=== PATIENT | female | born 2000 | race African-American/Black ===

== ENCOUNTER 2024-04-05 13:42 | Emergency (ER) | payer SELFPAY ==
[2024-04-05 13:46] VITALS: BP 128/86
[2024-04-05 14:19] LABS: Hematocrit 28.4 % (37.0-47.0); Hemoglobin 9.5 g/dL (12.0-16.0); Mean Corp Hgb Conc. 33.5 g/dL (33.0-37.0); Mean Corpuscular Hgb 27.6 pg (27.0-31.0); Mean Corpuscular Volume 82.6 fL (81.0-99.0); Platelet Count 297 10^3/uL (130-400); Red Blood Cell Count 3.44 10^6/uL (4.20-5.40); Red Cell Dist. Width 13.7 % (11.5-14.5); White Blood Cell Count 4.4 10^3/uL (4.8-10.8)
[2024-04-05 14:40] LABS: HCG, Serum Qualitative Screen Negative
[2024-04-05 14:44] LABS: AST (SGOT) 20 U/L (14-36); Albumin 3.3 g/dl (3.5-5.0); Blood Urea Nitrogen 15 mg/dl (7-17); Carbon Dioxide 19 mmol/L (22-30); Glucose 75 mg/dl (70-99); Potassium 4.2 mmol/L (3.5-5.1); Total Bilirubin 0.3 mg/dl (0.2-1.3); Total Protein 6.4 g/dl (6.3-8.2); eGFR 54.89
[2024-04-05 14:48] LABS: % Basophils 0.5 % (0-2); % Eosinophils 1.1 % (0-6); % Immature Granulocytes 0.2 % (0-0.5); % Lymphocytes 26.6 % (20.5-51.1); % Monocytes 9.9 % (1.7-9.3); % Neutrophils 61.7 % (42.2-75.2); Absolute Eosinophils 0.1 10^3/uL (0-0.7); Absolute Lymphocytes 1.2 10^3/uL (1.2-3.4); Absolute Monocytes 0.4 10^3/uL (0.1-0.6); Absolute Neutrophils 2.7 10^3/uL (1.4-6.5); Nucleated Red Blood Cells % 0 %
[2024-04-05 15:08] LABS: ALT (SGPT) < 10 U/L (0-35); Alkaline Phosphatase 57 U/L (38-126); Chloride 115 mmol/L (98-107); Sodium 142 mmol/L (135-145)
--- NOTE | 2024-04-05 16:09 | CM ---
CM following re: discharge planning.
CM consulted to assist pt with medication affordability and medicaid application process.
[place] and will stay in boyfriend's parent house. Per pt's boyfriend's father medication with [employer] coupon will be affordable. As for applying for Medicaid, pt is aware to have [place] residency, applied for [place] ID and after apply
for Medical assistance at [facility] assistance office. Per boyfriend's father, pt has no HS diploma and she will work tto obtain GED and will apply for a job.
[facility]
D/C plan: home with boyfriend and his family
--- NOTE | 2024-04-05 16:11 | ED.GENMED ---
History of Present Illness
General
Chief Complaint: Generalized Pain
Source: patient and other (Boyfriend's father)
Exam Limitations: none
Time Seen by Provider: 04/05/24 14:54
History of Present Illness
History of Present Illness:
23-year-old female with a history of lupus/lupus nephritis. Presents for multiple reasons. One of the primary reasons appears to be she is run out of her medications as she moved from [place]. She ran out of her CellCept a week ago. She just ran
out of her Plaquenil. She feels like her joints ache more. Also ongoing diarrhea. No fever no chest pain or shortness of breath. No vomiting. She is trying to get set up for medical assistance.
Past History
Past History
ED Past Medical History: Other (Lupus/lupus nephritis/pleural effusions/ascites)
ED Past Surgical History: Other (Exploratory laparotomy)
Review of Systems
Review of Systems
All Other Systems: Not applicable
Constitutional: Denies fever
Respiratory: Reports no symptoms
Cardiac: Reports no symptoms
Phy Exam
Physical Exam
Physical Exam:
GENERAL: Alert and oriented in no apparent distress
EYE: Orbits normal.
NECK: Supple
CARDIAC: Regular rate and rhythm without any obvious murmurs.
LUNGS: Clear breath sounds,normal
ABDOMEN: Soft, without focal tenderness or distention
NEUROLOGICAL: Alert and oriented , grossly non-focal
SKIN: Warm and dry, no rash or lesion, no discoloration, skin intact.
MUSCULOSKELETAL: No edema,no deformity.Good color
PSYCH: Normal and appropriate interaction.
Course
Orders/Labs/Results
Orders:
Orders
04/05/24 13:52
Test Result ONCE
04/05/24 13:57
Complete Blood Count/With Diff Urgent
Comprehensive Metabolic Panel Urgent
Erythrocyte Sed Rate Urgent
Comment: ESR ADDED ON BY FLOOR 3:30PM 8-7-24
HCG, Serum Qualitative Screen Urgent
04/05/24 15:31
CXR2 [CR Chest - 2 Views ] Urgent
Comment:
Reason For Exam: evaluate for right effusuion
04/05/24 15:32
US Abdomen Complete/Upper Urgent
Comment:
Reason For Exam: evaluate for ascites and kidneys
04/05/24 15:33
Add On- LAB Urgent
Tests Added?: esr
Case Management Consult ONCE
Case Management Consult: Other
04/05/24 18:01
Hydroxychloroquine [Plaquenil] 200 mg PO NOW STA
04/05/24 18:02
Mycophenolate [Cellcept] 1,000 mg PO NOW STA
Prednisone [Deltasone] 50 mg PO NOW STA
Abnormal Lab Results
04/05/24
13:57
WBC 4.4 L 10^3/uL
(4.8-10.8)
RBC 3.44 L 10^6/uL
(4.20-5.40)
Hgb 9.5 L g/dL
(12.0-16.0)
Hct 28.4 L %
(37.0-47.0)
MPV 11.0 H fL
(7.4-10.4)
Monocytes % 9.9 H %
(1.7-9.3)
ESR 86 H mm/hour
(0-20)
Chloride 115 H mmol/L
(98-107)
Carbon Dioxide 19 L mmol/L
(22-30)
Creatinine 1.4 H mg/dL
(0.6-1.0)
Albumin 3.3 L g/dl
(3.5-5.0)
04/05/24 13:57
04/05/24 13:57
Vital Signs
Initial and Last Documented VS:
Initial Vital Signs
Temp Pulse Resp BP Pulse Ox
98.2 F 111 18 128/86 100
04/05/24 13:46 04/05/24 13:46 04/05/24 13:46 04/05/24 13:46 04/05/24 13:46
Last Documented Vital Signs
Temp Pulse Resp BP Pulse Ox
98.2 F 79 18 122/79 99
04/05/24 13:46 04/05/24 16:55 04/05/24 16:55 04/05/24 16:55 04/05/24 16:55
MDM/Problems Addressed
Differential Diagnosis Includes:
Patient clinically stable and nontoxic. She is in no distress. Patient describing a possible mild lupus flare although nothing to support a serious acute issue. Many of her issues appear to be related to logistics of medications medical follow-up
etc. I have contacted case management. We looked into the cost of the meds which are reasonable. I have also talked to the [facility] gift about follow-up through the clinic. We await chest x-ray to evaluate effusion.
Ultrasound to evaluate for ascites. Urine and possible stool culture. Clinically expect outpatient follow-up with restarting her meds through the [facility]
*Critical Care Note
Total Time (30-74mins, 75-104mins- exclusive of procedures): Not Applicable
Data Reviewed
Review of Other/Old Records Reveals: Labs and Records
Update Note
Update Note:
Of note patient was also given copy of CT report for follow-up
ED Attending Note
-
Portions of this chart may have been created with voice recognition software.� Occasional wrong word or��sound alike� substitutions may have occurred due to the inherent limitations of voice recognition software.
Discharge Plan
Departure
Patient Disposition: Home (Routine Discharge)
Date of Disposition: 04/05/24
Time of Disposition: 18:24
Patient with high blood pressure during this ER visit?: Yes
Discharge Problem:
Lupus (systemic lupus erythematosus), Small right pleural effusion, Mild renal insufficiency, Lupus flare
Instructions: Pleural effusion, Lupus and kidney disease, BLOOD PRESSURE
Prescriptions:
New
hydroxychloroquine [Plaquenil] 200 mg tablet
200 mg PO DAILY Qty: 7 0RF
hydroxychloroquine [Plaquenil] 200 mg tablet
200 mg PO DAILY Qty: 30 0RF
mycophenolate mofetil [CellCept] 500 mg tablet
1,000 mg PO BID Qty: 30 0RF
mycophenolate mofetil [CellCept] 500 mg tablet
1,000 mg PO BID Qty: 90 0RF
prednisone 10 mg tablet
10 mg PO DIRECTED Qty: 20 0RF
Rx Instructions:
4 tablets day 1. Then 1 less tablet every other day until gone
Referrals:
[facility] [Provider Group[facility] - Follow up in 2-3 days
NONE,* [Family Provider] -
Interventions
Interventions:
*Risk Screen - Suicide Last Done: 04/05/24 13:46
*General Assessment Last Done: 04/05/24 13:46
*Neglect/Abuse Screening Last Done: 04/05/24 13:46
*Nursing Disposition Last Done: 04/05/24 18:42
Discharge Date and Time
Discharge Date/Time: 04/05/24 18:42
Print Language: SLOVAK
[2024-04-05 16:17] LABS: Erythrocyte Sed Rate 86 mm/hour (0-20)
[2024-04-05 16:55] VITALS: BP 122/79
[2024-04-05] MEDS: CELLCEPT 1000 MG PO (18:36)
[2024-04-05] MEDS: PLAQUENIL 200 MG PO (18:36)
[2024-04-05] MEDS: DELTASONE 50 MG PO (18:36)
== END 2024-04-05 18:42 | disposition home or self-care (01) ==
LOC: EMR 13:42
PROVIDERS: Student in an Organized Health Care Education/Training Program; EMERGENCY PHYSICIAN Emergency Medicine
DX: M32.13 Lung involvement in systemic lupus erythematosus (principal); J90 Pleural effusion, not elsewhere classified; N28.9 Disorder of kidney and ureter, unspecified; R19.7 Diarrhea, unspecified; Z91.138 Patient's unintentional underdosing of medication regimen for other reason; Z88.8 Allergy status to other drugs, medicaments and biological substances
CPT/HCPCS: 99284; 71046; 76700; 80053; 84703; 85025; 85652

== ENCOUNTER → 2024-06-05 14:02 | Outpatient (REF) | payer OTHER, SELFPAY | LOC: UCDH 14:02 | PROVIDERS: ATTENDING PHYSICIAN Physician Assistant Medical | DX: S60.221A Contusion of right hand, initial encounter (principal) | CPT/HCPCS: 73130 ==

== ENCOUNTER 2024-06-13 10:02 | Inpatient (IN) | payer OTHER, SELFPAY ==
[2024-06-12] VITALS (21 sets, daily range): BP systolic 123–172; BP diastolic 71–122; BMI 26.4; BMI 26.2
--- NOTE | 2024-06-12 09:35 | ED.GENMED ---
History of Present Illness
General
Chief Complaint: Swelling
Source: patient
Exam Limitations: none
Time Seen by Provider: 06/12/24 09:33
Nursing documentation reviewed up to this point in time: agreed with
History of Present Illness
History of Present Illness:
Patient is a 23-year-old female past medical history of neuromyelitis optica, lupus' stage IV kidney disease' presents to the ED for evaluation.
Patient recently moved from [place] in January/February did have a mobility developer in [place]. She was seen here in the beginning of March to help with getting her medications. She has since seen [facility] and is being followed by them and
has been taking hydroxychloroquine. She however has not been able to get her CellCept .
She had an appointment with a mobility developer today however was not able to make it due to pain.
Pt presents here today for right sided arm/hand and right sided foot pain and swelling.
She woke up in sweat today.
She denies any fevers/chills.
Past History
Past History
ED Past Medical History: Other (Lupus/lupus nephritis/pleural effusions/ascites)
ED Past Surgical History: Other (Exploratory laparotomy)
Review of Systems
Review of Systems
Allergies reviewed?: Yes
All Other Systems: ROS reviewed and negative except as documented in HPI and ROS
Constitutional: Reports no symptoms; Denies fever, fatigue or chills
EENT: Reports no symptoms
Respiratory: Reports no symptoms
Cardiac: Reports no symptoms
ABD/GI: Reports no symptoms
Musculoskeletal: Reports joint swelling and other (Pain in joints and swelling)
Skin: Reports no symptoms
Neurological: Reports no symptoms
Psychiatric: Reports no symptoms
Phy Exam
General Physical Exam
General Presentation: no apparent distress
General age: appears stated age
General Skin: warm and dry
General Habitus: normal
General Mental: alert
General Hydration: appears well hydrated
Cardiovascular Exam
Cardiovascular Exam: tachycardia
Pulmonary Exam
Pulmonary Exam: lungs clear and no respiratory distress
Neurological Exam
Neurological Exam: alert and oriented x3
Musculoskeletal Exam
Musculoskeletal Exam: other (rue with right hand swelling and rle with right foot swelling strong pulses )
Skin Exam
Skin Exam: normal color and warm/dry
Psychiatric Exam
Psychiatric Exam: normal mood/affect
Course
Orders/Labs/Results
Orders:
Orders
06/12/24 09:50
IV Insert/Care/Rem.- Treatment PRN
Test Result ONCE
06/12/24 10:45
Complete Blood Count/With Diff Urgent
Comprehensive Metabolic Panel Urgent
HCG, Serum Qualitative Screen Urgent
Urinalysis Reflex To Culture Urgent
Date Specimen was Collected: 06/12/24
Time Specimen was Collected: 09:55
Urine Microscopic Reflex Cult Urgent
Urine Culture Urgent
DANAY Source: U
Specimen Description:
Date Specimen was Collected: 06/12/24
Time Specimen was Collected: 09:55
06/12/24 11:50
Electrocardiogram (*1) Stat
Reason for Study: Other
Other Reason for Exam: chest pain
EKG- Treatment ONCE
06/12/24 12:04
Morphine Sulfate 4 mg IV NOW STA
06/12/24 12:55
0.9% Sodium Chloride 1000 ml [Nss] 1,000 ml IV BOLUS
06/12/24 Dinner
Regular
At Your Request: Full Participation
06/12/24 15:11
CMP [Comprehensive Metabolic Panel] Urgent
Ferritin Routine
Comment: ADD ON
Iron Urgent
Comment: ADD ON
Total Iron Binding Urgent
Comment: ADD ON
06/12/24 15:15
Metoprolol [Lopressor] 5 mg IV NOW STA
06/12/24 15:16
Morphine Sulfate 4 mg IV NOW STA
06/12/24 15:27
0.9% Sodium Chloride 1000 ml [Nss] 1,000 ml IV BOLUS
06/12/24 15:28
NIFEdipine EXTENDED RELEASE [Procardia Xl (Extended Release)] 30 mg PO NOW STA
06/12/24 15:30
0.9% Sodium Chloride 1000 ml [Nss] 1,000 ml IV BOLUS
06/12/24 15:44
Dexamethasone Sod Phosphate [Decadron] 10 mg IV NOW STA
06/12/24 15:52
Admit/Transfer Patient As Directed
Co-Sign Provider:
Level of Care: Observation services
Assign to:: Medical/Surgical
Physician / Group: Andrei
Diagnosis: elevated blood pressure
Code Status As Directed
Resuscitation Status: Full Code
PRN Pain Medication Management As Directed
May give lesser potent ordered pain med per pt: Yes
preference::
Protocol:: Medication orders for pain may be administered in a
manner that supports deferring to patient preference
when the pt is:
- Requesting an ordered lesser potent pain medication.
Least to most potent pain medications are defined
as: acetaminophen < NSAID < tramadol < opioids
(morphine, oxycodone, hydromorphone).
- Requesting a lesser dose of the same medication IF
ORDERED.
- Requesting a less intrusive route of administration
if both routes are prescribed by the provider (PO <
IV).
06/12/24 16:06
Ondansetron Injectable [Zofran] 4 mg IV Q6HPRN PRN
06/12/24 16:51
NIFEdipine EXTENDED RELEASE [Procardia Xl (Extended Release)] 30 mg .ROUTE .STK-MED ONE
06/12/24 17:00
Flush (0.9% Sodium Chloride) [Flush (Nss)] See Dose Instructions IV PER PROTOCOL
06/12/24 19:13
Acetaminophen [Tylenol] 650 mg PO Q4HPRN PRN
Bisacodyl [Dulcolax] 10 mg RECTAL [id number] PRN
Docusate W/Senna [Senokot-S] 1 tablet PO BIDPRN PRN
Heparin 5,000 units SC Q8
HydrALAZINE [Apresoline] 10 mg IV Q4HPRN PRN
Hydroxychloroquine [Plaquenil] 200 mg PO DAILY
Polyethylene Glycol Powder [Miralax] 17 grams PO DAILYPRN PRN
Tramadol HCl [Ultram] 50 mg PO Q6HPRN PRN
06/12/24 19:13
Activity As Directed
Activity Level: With Assistance
Vital Signs As Directed
Frequency: Per unit guidelines
DX Deep Vein Thrombosis Video Routine
06/12/24 20:00
mycophenolate mofetil 500 mg PO BID
06/12/24 21:49
Melatonin 5 mg PO NOW STA
06/12/24 22:00
Melatonin 5 mg PO HS
06/13/24 04:11
Basic Metabolic Panel IN AM
Complete Blood Count/With Diff IN AM
06/13/24 04:56
Morphine Sulfate 2 mg IV NOW STA
06/13/24 07:57
Transfer Patient As Directed
Transfer to: Telemetry
Reason for Telemetry: Arrhythmia
Date to Stop Telemetry: 06/16/24
Time to Stop Telemetry: 11:00
06/13/24 08:00
Albuterol Nebs [Ventolin Nebules] 2.5 mg INH R NOW
Hydroxychloroquine [Plaquenil] 200 mg PO DAILY
Mycophenolate [Cellcept] 1,000 mg PO BID
NIFEdipine EXTENDED RELEASE [Procardia Xl (Extended Release)] 30 mg PO DAILY
06/13/24 08:02
Dextrose 50%-Water [Dextrose 50% Syringe] 25 grams IV NOW STA
Insulin Human Regular [Novolin R] 10 units Syringe [Syringe Non-Pump] 0 ml IV ONCE
06/13/24 08:07
Sodium Zirconium Cyclosilicate [Lokelma] 10 gram PO TID@0600,1400,1800
06/13/24 08:15
Sterile Water For Inj [Sterile Water For Injection 1000 ml] 1,000 ml Sodium Bicarbonate 150 meq IV 150 mls/hr
06/13/24 08:27
Ondansetron Injectable [Zofran] 4 mg IV Q6HPRN PRN
06/13/24 08:30
Calcium Gluconate 1 gram/100mL [Calcium Gluconate] 1 gram in 100 ml IV ONCE
06/13/24 09:52
Change in Level of Care [Level of Care Change] As Directed
Level of Care: Inpatient admission
Reason for Hospitalization: metabolic acidosis
Expected length of stay greater than two midnights?: Yes
ELOS- Estimated Length of Stay in days: 3
I certify the patient meets the requirements for IP care: Yes
06/13/24 10:00
MethylPREDNISolone PF [Solu-Medrol Pf] 40 mg IV Q12H
06/13/24 14:00
BMP [Basic Metabolic Panel] Routine
Ferric Gluconate [Ferrlecit] 125 mg 0.9% Sodium Chloride 100 ml [Nss] 100 ml IV DAILY@1400
06/14/24 06:00
Basic Metabolic Panel IN AM
Complete Blood Count/With Diff IN AM
06/15/24 06:00
Basic Metabolic Panel IN AM
Complete Blood Count/With Diff IN AM
06/16/24 11:00
DC Protocol for Telemetry ONCE
Abnormal Lab Results
06/12/24 06/12/24 06/13/24
10:45 15:11 04:11
WBC 2.6 L 10^3/uL 1.9 L* 10^3/uL
(4.8-10.8) (4.8-10.8)
RBC 3.58 L 10^6/uL 3.22 L 10^6/uL
(4.20-5.40) (4.20-5.40)
Hgb 8.6 L g/dL 8.1 L g/dL
(12.0-16.0) (12.0-16.0)
Hct 26.9 L % 24.3 L %
(37.0-47.0) (37.0-47.0)
MCV 75.1 L fL 75.5 L fL
(81.0-99.0) (81.0-99.0)
MCH 24.0 L pg 25.2 L pg
(27.0-31.0) (27.0-31.0)
MCHC 32.0 L g/dL
(33.0-37.0)
MPV 13.4 H fL
(7.4-10.4)
Absolute Neuts (auto) 1.2 L 10^3/uL 1.0 L 10^3/uL
(1.4-6.5) (1.4-6.5)
Absolute Lymphs (auto) 0.8 L 10^3/uL
(1.2-3.4)
Potassium 5.6 H mmol/L 5.7 H mmol/L 6.5 H* mmol/L
(3.5-5.1) (3.5-5.1) (3.5-5.1)
Chloride 117 H mmol/L 117 H mmol/L 117 H mmol/L
(98-107) (98-107) (98-107)
Carbon Dioxide 14 L* mmol/L 14 L* mmol/L 12 L* mmol/L
(22-30) (22-30) (22-30)
BUN 29 H mg/dl 27 H mg/dl 26 H mg/dl
(7-17) (7-17) (7-17)
Creatinine 1.6 H mg/dL 1.4 H mg/dL 1.3 H mg/dL
(0.6-1.0) (0.6-1.0) (0.6-1.0)
Glucose 124 H mg/dl
(70-99)
Calcium 8.3 L mg/dl 8.3 L mg/dl
(8.4-10.2) (8.4-10.2)
Iron 29 L ug/dl
(37-170)
TIBC 193 L ug/dl
(265-497)
% Saturation 15 L %
(20-50)
Total Bilirubin 0.1 L mg/dl
(0.2-1.3)
AST 65 H U/L 60 H U/L
(14-36) (14-36)
Total Protein 6.1 L g/dl
(6.3-8.2)
Albumin 2.9 L g/dl 2.7 L g/dl
(3.5-5.0) (3.5-5.0)
Ur Occult Blood Reflex 4+ A
(Negative)
Urine Nitrite (Reflex) Positive A
(Negative)
Leukocyte Esterase Rfl 1+ A
(Negative)
Urine RBC 21-25 A /HPF
(0-2)
Urine Bacteria (Reflex) Many A
(Negative)
Urine Albumin (Reflex) 2+ A
(Neg - Trace)
POC Glucose
06/13/24
09:48
WBC
RBC
Hgb
Hct
MCV
MCH
MCHC
MPV
Absolute Neuts (auto)
Absolute Lymphs (auto)
Potassium
Chloride
Carbon Dioxide
BUN
Creatinine
Glucose
Calcium
Iron
TIBC
% Saturation
Total Bilirubin
AST
Total Protein
Albumin
Ur Occult Blood Reflex
Urine Nitrite (Reflex)
Leukocyte Esterase Rfl
Urine RBC
Urine Bacteria (Reflex)
Urine Albumin (Reflex)
POC Glucose 112 H mg/dl
(70-99)
06/13/24 04:11
06/13/24 04:11
Vital Signs
Initial and Last Documented VS:
Initial Vital Signs
Temp Pulse Resp BP Pulse Ox
98.5 F 112 18 163/118 100
06/12/24 08:37 06/12/24 08:37 06/12/24 08:37 06/12/24 08:37 06/12/24 08:37
Last Documented Vital Signs
Temp Pulse Resp BP Pulse Ox
98.3 F 103 20 141/98 100
06/13/24 11:07 06/13/24 11:07 06/13/24 11:07 06/13/24 11:07 06/13/24 11:07
MDM/Problems Addressed
Differential Diagnosis Includes:
Not limited to lupus flare, pain
MDM/Problems Addressed:
Patient is a 23-year-old female with lupus history of lupus who as documented recently moved here to [place] from [place] over the past several months. Since then she has been seen by the family practice clinic only taking her Plaquenil she
has not been taking her CellCept. She was supposed to be scheduled for rheumatology today however because of increased pain she did not feel she could make and presented to the ER. She presents awake alert she is hypertensive she complains of
joint pain throughout and worse with swelling to the right hand and right foot. She denies any fevers or chest pain or breath she is afebrile however white count is low at 2.6 which is decreased from 4.4 when she was seen here 04/05; hemoglobin is
also decreased at 8.6 from 9.5. Patient's creatinine is elevated to 1.6/BUN of 29 with a potassium of 5.6 with no EKG changes. Patient's bicarb is low at 14: gap 11 .
Patient has blood in her urine however does have menses currently.
Discussed case with ED physician and admitting hospitalist and hospitalist is reequesting hydration and recheck of labs and does not feel that pt needs to be admitted.
Patient however is hypertensive , c/o of pain is requiring pain medication here. She is persistently hypertensive with heart rate of 100. Patient was treated with IV Lopressor. Patient was hydrated awaiting on recheck chemistries at this time.
Care of pt at this time transferred to DR Shaw. ([id number]) . Pt continues to remain on site monitor
Chronic conditions affecting care:
lupus (non complaint has not been taking cellcept )
*EKG
Interpreted by ED Provider?: Yes
Comparison EKG: no comparison EKG present
Heart Rate: 91
Rate: normal
Rhythm: sinus
Ischemia: no ischemia
*Critical Care Note
Total Time (30-74mins, 75-104mins- exclusive of procedures): Not Applicable
ED Attending Note
-
Portions of this chart may have been created with voice recognition software.� Occasional wrong word or��sound alike� substitutions may have occurred due to the inherent limitations of voice recognition software.
Discharge Plan
Departure
Patient Disposition: Admit
Admit to: Telemetry
Admit to doctor: Andrei
Presentation/result/management discussed w/ accepting MD/DO: Hospitalist
Patient with high blood pressure during this ER visit?: Yes
Condition: Fair
Discharge Problem:
lupus flare, acute hypertension, Acute hyperkalemia
Interventions
Interventions:
*Risk Screen - Suicide Last Done: 06/12/24 08:37
*General Assessment Last Done: 06/12/24 08:37
*Neglect/Abuse Screening Last Done: 06/12/24 08:37
ED- Fall Risk Assessment Last Done: 06/12/24 10:42
*ED COVID-19 Vaccine History Last Done: 06/12/24 23:02
*Nursing Disposition Last Done: 06/12/24 18:39
ED- Cardiac Assessment Last Done: 06/12/24 10:42
ED- Pulmonary Assessment Last Done: 06/12/24 10:42
ED-Skin Assessment Last Done: 06/12/24 10:42
Discharge Date and Time
Discharge Date/Time: 06/12/24 18:40
--- NOTE | 2024-06-12 10:55 | EDRN ---
the pt is resting in stretcher in the lowest position, side rails up x1, HOB elevated, the pt is sitting on the side of the stretcher, the pt states that it is too painful to lay down, the pt was able to ambulate to the bathroom and provide a urine
sample with no issues, PIV placed, labs drawn and sent, urine sent, this RN notified Prachi Carrero [employer] DEVELOPMENT CONSULTANT that the pt is in generalized pain, the pt has generalized swelling, more prominent on the right upper extremity and right lower extremity, no
s/s of distress currently, will continue to monitor the pt closely
[2024-06-12 11:13] LABS: Urine Albumin 2+ (Neg - Trace); Urine Bilirubin Negative (Negative); Urine Character Slightly Cloudy (Clear); Urine Color Yellow; Urine Glucose Negative (Negative); Urine Ketone Negative (Negative); Urine Leukocyte 1+ (Negative); Urine Nitrite Positive (Negative); Urine Occult Blood 4+ (Negative); Urine Urobilinogen Negative (Neg - 1+)
[2024-06-12 11:21] LABS: HCG, Serum Qualitative Screen Negative
[2024-06-12 11:24] LABS: Hematocrit 26.9 % (37.0-47.0); Hemoglobin 8.6 g/dL (12.0-16.0); Mean Corpuscular Volume 75.1 fL (81.0-99.0); Mean Platelet Volume 13.4 fL (7.4-10.4); Platelet Count 272 10^3/uL (130-400); Red Blood Cell Count 3.58 10^6/uL (4.20-5.40); Red Cell Dist. Width 14.2 % (11.5-14.5); White Blood Cell Count 2.6 10^3/uL (4.8-10.8)
[2024-06-12 11:36] LABS: ALT (SGPT) 15 U/L (0-35); AST (SGOT) 65 U/L (14-36); Albumin 2.9 g/dl (3.5-5.0); Alkaline Phosphatase 51 U/L (38-126); Blood Urea Nitrogen 29 mg/dl (7-17); Calcium 8.7 mg/dl (8.4-10.2); Carbon Dioxide 14 mmol/L (22-30); Chloride 117 mmol/L (98-107); Estimated Creatinine Clearance 49 ml/min; Glucose 89 mg/dl (70-99); Potassium 5.6 mmol/L (3.5-5.1); Sodium 142 mmol/L (135-145); Total Bilirubin 0.2 mg/dl (0.2-1.3); Total Protein 6.3 g/dl (6.3-8.2); eGFR 46.76
[2024-06-12 11:44] LABS: Urine Amorphous Seen; Urine Squamous Cell >30 /LPF (Few)
[2024-06-12 11:50] LABS: Urine Red Blood Cell 21-25 /HPF (0-2)
[2024-06-12 11:51] LABS: Urine Bacteria Many (Negative)
[2024-06-12] MEDS: MORPHINE SULFATE 4 MG IV ×2 (12:20→15:28)
--- NOTE | 2024-06-12 12:30 | EDRN ---
pain medication administered and EKG performed, per the provider Prachi Carrero NP the pt is to be placed on cardiac monitor technician for elevated K, this RN notified the charge nurse, this RN will find portable monitor
--- NOTE | 2024-06-12 12:46 | EDRN ---
this RN found a portable monitor and placed the pt on rn cardiac rehab, Sp02 monitor, and blood pressure cuff, the pt is resting in stretcher in the lowest position, side rails up x1, HOB elevated, no s/s of distress, per Prachi Carrero NP the pt
will be admitted, the pt is in NSR in the 70-80's, VS WNL, will continue to monitor the pt closely
[2024-06-12 13:40] LABS: % Basophils 0.4 % (0-2); % Eosinophils 2.3 % (0-6); % Immature Granulocytes 0.4 % (0-0.5); % Lymphocytes 46.2 % (20.5-51.1); % Monocytes 4.2 % (1.7-9.3); % Neutrophils 46.5 % (42.2-75.2); Absolute Eosinophils 0.1 10^3/uL (0-0.7); Absolute Lymphocytes 1.2 10^3/uL (1.2-3.4); Absolute Monocytes 0.1 10^3/uL (0.1-0.6); Absolute Neutrophils 1.2 10^3/uL (1.4-6.5); Nucleated Red Blood Cells % 0 %
--- NOTE | 2024-06-12 13:48 | EDRN ---
provider notified of the pts elevated blood pressure
[2024-06-12] MEDS: NSS 1000 IV ×2 (13:50→15:27)
--- NOTE | 2024-06-12 14:19 | EDRN ---
the pt is resting in stretcher in the lowest position, side rails up x1, HOB elevated, no s/s of distress, the pt denies needing anything at this time, NSR in the 70-90's, Sp02 98%, no c/o chest pain, no c/o SOB, will continue to monitor the pt
closely
--- NOTE | 2024-06-12 14:31 | EDRN ---
this RN notified Prachi Carrero NP of the pts elevated blood pressure again, no new orders received, no c/o headache, no c/o chest pain, no c/o SOB, will continue to monitor the pt closely
--- NOTE | 2024-06-12 14:46 | EDRN ---
the pt asked this RN for water, this RN notified Prachi Carrero NP and per the provider the pt was is allowed to have water, this RN provided the pt with ice water and assisted the pt with repositioning in bed for comfort, this RN notified Prachi
Magan SWAN again regarding the pts elevated blood pressures, no new orders were received, will continue to monitor the pt closely
--- NOTE | 2024-06-12 15:31 | HPS.HSE ---
Family Physician
-
Family Physician: PHYSICIAN PRIVATE
Chief Complaint
-
RUE and RLE pain
History of Present Illness
23 y/o F with PMHx SLE with lupus nephritis who presents with CC RUE and RLE pain. The patient recently moved from [place]. She was supposed came to the ER because her RUE/RLE pain was to great. Her pain started approximately 2 days ago. She is
maintained on Plaquenil and CellCept since the age of 19 when she was diagnosed with lupus nephritis. She ran out of her CellCept 1 to 2 weeks ago. She states she is still with her Plaquenil. Denies any other acute complaints. Denies fevers,
chest pain, shortness of breath, nausea, vomiting, diarrhea. Patient was found to have elevated blood pressures. She was also found to have a nonanion gap metabolic acidosis and hyperkalemia.
Medical History
Past Medical History
Past Medical History: Reports Other (SLE with lupus nephritis)
Past Surgical History: Reports Other (N/A)
Social History
Tobacco: Non-smoker
Alcohol: None
Drug: None
Family History
Family History: Not pertinent
Allergies / Home Medications
Allergies reflects when Allergies were last updated in [facility].
Home Medications with original date entered in [facility]
Allergy/Medication List:
Allergies
Allergy/AdvReac Type Severity Reaction Status Date / Time
KATERINA Inhibitors Allergy Severe Swelling Verified 06/12/24 08:38
Home Medications
hydroxychloroquine 200 mg tablet (Plaquenil) 200 mg PO DAILY #7 tabs 04/05/24
mycophenolate mofetil 500 mg tablet (CellCept) 500 mg PO BID 06/12/24
Review of Systems
-
History Source: Patient
A 12 point ROS was completed and negative except as noted: Yes
Physical Exam
Vital Signs
Vital Signs
Temp Pulse Resp BP Pulse Ox
98.5 F 92 22 172/122 100
06/12/24 10:42 06/12/24 14:45 06/12/24 14:45 06/12/24 15:13 06/12/24 15:15
Physical Exam
General: Other (.)
Laboratory Results
-
06/12/24 10:45
Laboratory Results
Total Bilirubin 0.2 mg/dl (0.2-1.3) 06/12/24 10:45
AST 65 U/L (14-36) H 06/12/24 10:45
ALT 15 U/L (0-35) 06/12/24 10:45
Alkaline Phosphatase 51 U/L (38-126) 06/12/24 10:45
Impression/Plan
-
Gen: NAD, AAOx3.
Eyes: EOMI, PERRLA, no scleral icterus.
Neck: supple.
CV: RRR, +S1/S2, no m/r/g.
Resp: CTAB, no rales, wheezes, or rhonchi.
Abd: +BS, soft, NT, ND
Skin: No rashes. Visible soft tissue edema right greatest to a lesser degree.
Neuro: CN 2-12 intact, non-focal.
Psych: Normal mood and affect.
R hand Xray: No acute fracture or dislocation.
Chronic SLE with lupus nephritis:
-Cr 04/05/24 was 1.4, currently 1.6, no EMILY at this time
-Hyperkalemia and AGMA with HCO3- 14, received 1L NS in the ER, repeat BMP pending
-will order another 1L NS wide open at this time
-pt has been noncompliant with Cellcept, will resume
-cont Plaquenil
-will curbside rheum
-reinforced the need for outpt rheum follow up
-will give a one time dose of 10mg IV decadron
-pain control with Tylenol, Ultram PRN
Elevated BPs:
-Patient states she has been on antihypertensives in the past but never standing doses. She attributes her current BPs to stress. I explained that DBP of 122 is too high to be due to stress alone.
-start Procardia XL 30mg daily, first dose now
-titrate antihypertensives based on BP trend
Microcytic anemia:
-check Fe studies
Leukopenia with borderline neutropenia (ANC 1200)
FULL/Heparin
[2024-06-12] MEDS: DECADRON 10 MG IV (15:59)
[2024-06-12 16:00] LABS: ALT (SGPT) 15 U/L (0-35); AST (SGOT) 60 U/L (14-36); Albumin 2.7 g/dl (3.5-5.0); Alkaline Phosphatase 49 U/L (38-126); Blood Urea Nitrogen 27 mg/dl (7-17); Calcium 8.3 mg/dl (8.4-10.2); Carbon Dioxide 14 mmol/L (22-30); Chloride 117 mmol/L (98-107); Estimated Creatinine Clearance 56 ml/min; Glucose 89 mg/dl (70-99); Potassium 5.7 mmol/L (3.5-5.1); Sodium 140 mmol/L (135-145); Total Bilirubin 0.1 mg/dl (0.2-1.3); Total Protein 6.1 g/dl (6.3-8.2); eGFR 54.89
[2024-06-12] MEDS: PROCARDIA XL (EXTENDED RELEASE) PO (16:00)
[2024-06-12] MEDS: ZOFRAN 4 MG IV (16:11)
[2024-06-12] MEDS: PROCARDIA XL (EXTENDED RELEASE) 30 MG PO (16:54)
[2024-06-12 20:25] LABS: Iron 29 ug/dl (37-170)
[2024-06-12 20:33] LABS: Percent Saturation 15 % (20-50); Total Iron Binding Capacity 193 ug/dl (265-497)
[2024-06-12 21:09] LABS: Ferritin 88.1 ng/ml (6.24-137)
[2024-06-12] MEDS: ULTRAM 50 MG PO (21:18)
[2024-06-12] MEDS: CELLCEPT 500 MG PO (21:39)
[2024-06-12] MEDS: MELATONIN 5 MG PO (23:18)
[2024-06-12] MEDS: MELATONIN PO (23:22)
[2024-06-13] MEDS: ULTRAM 50 MG PO ×2 (04:36→12:10)
[2024-06-13] MEDS: MORPHINE SULFATE 2 MG IV (05:09)
[2024-06-13 06:42] LABS: Hematocrit 24.3 % (37.0-47.0); Hemoglobin 8.1 g/dL (12.0-16.0); Mean Corp Hgb Conc. 33.3 g/dL (33.0-37.0); Mean Corpuscular Hgb 25.2 pg (27.0-31.0); Mean Corpuscular Volume 75.5 fL (81.0-99.0); Platelet Count 240 10^3/uL (130-400); Red Blood Cell Count 3.22 10^6/uL (4.20-5.40); Red Cell Dist. Width 13.9 % (11.5-14.5); White Blood Cell Count 1.9 10^3/uL (4.8-10.8)
[2024-06-13 06:48] LABS: Blood Urea Nitrogen 26 mg/dl (7-17); Calcium 8.3 mg/dl (8.4-10.2); Carbon Dioxide 12 mmol/L (22-30); Chloride 117 mmol/L (98-107); Estimated Creatinine Clearance 57 ml/min; Glucose 124 mg/dl (70-99); Potassium 6.5 mmol/L (3.5-5.1); Sodium 140 mmol/L (135-145)
[2024-06-13 07:13] VITALS: BP 155/105
[2024-06-13] MEDS: VENTOLIN NEBULES 2.5 MG INH (08:03)
[2024-06-13] MEDS: PROCARDIA XL (EXTENDED RELEASE) 30 MG PO (08:14)
[2024-06-13] MEDS: CELLCEPT 1000 MG PO ×2 (08:14→21:13)
[2024-06-13] MEDS: PLAQUENIL 200 MG PO (08:14)
--- NOTE | 2024-06-13 08:19 | W.PN.HOSP.TC ---
Today's Communication/Plan
-
Manage hyperkalemia
Monitor potassium levels
Workup for causes of hyperkalemia and metabolic acidosis
Monitor blood pressure
Assessment / Plan
Assessment / Plan
IMPRESSION
A 23-year-old female, known case of lupus nephritis for 5 years taking CellCept and hydroxychloroquine as a maintenance regimen, presented with high blood pressures, joint swelling , pain, and generalized weakness. Admitted for lupus flare-up.
Current labs show hyperkalemia and metabolic acidosis.
ASSESSMENT
# Hyperkalemia
# Metabolic acidosis
# High blood pressure
#SLE
PLAN
# Hyperkalemia
Patient had a potassium level of 6.5 on June 13, 2024
Started on ventolin nebulization, calcium gluconate infusion, dextrose water 50%, 10 units of insulin, Lokelma
Repeat potassium levels at 1400
Monitor potassium levels
Patient has nausea and decreased appetite, denies any fever, urinary symptoms, diarrhea, drug use, trauma snell or accidents
denies any organ transplant origination
Serum creatinine 1.3
Patient is allergic to KATERINA inhibitors, avoid KATERINA inhibitors and ARB and any NSAIDs
# Metabolic acidosis
Patient had a bicarb level of 12
Switch IV fluids to 150 mEq sodium bicarb at 150 mL per
# High blood pressure
Patient has taken blood pressure medications in the past but is not on any scheduled BP medication
Attributes to the stress of moving from [place]
Diastolic blood pressure too high to be simple stress as a cause of high blood pressure
Patient advised Procardia
Monitor blood pressure
#SLE
Diagnosed with SLE about 5 years ago
Takes CellCept and hydroxychloroquine
Ran out of medication and presented to emergency with high blood pressures
Manage blood pressure
Continue home dose of CellCept and hydroxychloroquine
Microcytic anemia-IV ferric gluconate
Leukopenia
Full code
DVT prophylaxis low molecular weight heparin
Anticipated Discharge: 24 - 48 hours
Subjective/Interval History
-
Date of Service: June 13, 2024
Complains of joint pains, swelling of hands and feet and weakness
Objective Data
-
Labs:
Laboratory Results
06/13/24 06/13/24
04:11 14:00
WBC 1.9 L*
Hgb 8.1 L
Hct 24.3 L
Plt Count 240
Sodium 140 Pending
Potassium 6.5 H* Pending
Chloride 117 H Pending
Carbon Dioxide 12 L* Pending
BUN 26 H Pending
Creatinine 1.3 H Pending
Glucose 124 H Pending
Calcium 8.3 L Pending
Vital Signs:
Vital Signs
Temp Pulse Resp BP Pulse Ox
98.6 F 98 16 123/78 100
06/12/24 23:13 06/13/24 08:09 06/13/24 08:09 06/12/24 23:13 06/13/24 08:09
I&O
06/12/24 06/13/24 06/14/24
06:59 06:59 06:59
Intake Total 240 / 240
Balance 240 / 240
Review of Systems
-
All other systems: Reviewed and negative
Physical Exam
-
General: Well Developed, No Apparent Distress, Comfortable and Conversant
HEENT: Normocephalic and Atraumatic
Respiratory: Clear to Auscultation
Cardiac: Regular Rhythm and S1/S2
GI: Soft, Nontender, Nondistended and Normal Bowel Sounds
Genito-urinary: No Costovertebral Tender
Musculoskeletal: No Clubbing and No Cyanosis
Skin: Warm, Dry and Other
Neuro: Awake, Alert, Oriented and No Motor Deficits
Hematologic / Lymphatic: No Lymphadenopathy
Psych: Calm
[2024-06-13] MEDS: CALCIUM GLUCONATE 100 IV (08:32)
[2024-06-13] MEDS: DEXTROSE 50% SYRINGE 25 GRAMS IV (08:34)
[2024-06-13] MEDS: NOVOLIN R 0.1 UNITS IV (08:36)
[2024-06-13] MEDS: LOKELMA 10 GRAM PO ×3 (08:42→17:01)
[2024-06-13 09:22] LABS: % Immature Granulocytes 0.5 % (0-0.5); % Lymphocytes 44.4 % (20.5-51.1); % Monocytes 3.2 % (1.7-9.3); % Neutrophils 51.9 % (42.2-75.2); Absolute Lymphocytes 0.8 10^3/uL (1.2-3.4); Absolute Monocytes 0.1 10^3/uL (0.1-0.6); Nucleated Red Blood Cells % 0 %
[2024-06-13] MEDS: SODIUM BICARBONATE 1150 MEQ IV ×2 (09:29→18:15)
[2024-06-13] MEDS: ZOFRAN 4 MG IV ×2 (09:41→17:01)
[2024-06-13 09:49] LABS: Glucose - Point of Care 112 mg/dl (70-99)
--- NOTE | 2024-06-13 09:54 | W.PN.UPDATE ---
Update Note
Progress Note Update
No new complaints today.
Pt seen and examined with nurse Carolina Ruth present at bedside:
Gen: NAD, AAOx3.
Eyes: EOMI, PERRLA, no scleral icterus.
Neck: supple.
CV: Remains RRR, +S1/S2, no m/r/g.
Resp: Remains CTAB, no rales, wheezes, or rhonchi.
Abd: Remains +BS, soft, NT, ND
Skin: No rashes. Visible soft tissue edema right greatest to a lesser degree.
Neuro: CN 2-12 intact, non-focal.
Psych: Normal mood and affect.
R hand Xray: No acute fracture or dislocation.
Chronic SLE with lupus nephritis:
-Cr 04/05/24 was 1.4, 1.6 on admission, now 1.3 after IVFs (this qualifies for EMILY, POA)
-AGMA and hyperkalemia worsening. Change IVFs to NaHCO3 150meq/L @ 150cc/hr. Give calcium gluconate/D50W/insulin/Lokelma. Recheck BMP at [address]. Place on tele.
-pt had been noncompliant with Cellcept, now restarted
-cont Plaquenil
-will curbside rheum
-reinforced the need for outpt rheum follow up
-s/p 10mg IV decadron on 06/12/24 with improvement in joint edema and pain. Start Solu-Medrol 40mg IV Q12H.
-pain control with Tylenol, Ultram PRN, IV morphine PRN
Elevated BPs:
-Patient states she has been on antihypertensives in the past but never standing doses. She attributes her current BPs to stress. I explained that DBP of 122 is too high to be due to stress alone.
-cont Procardia XL 30mg daily for today
-titrate antihypertensives based on BP trend over the next 24 hours
-note allergy to ACEi, avoid ACEi/ARBs
Microcytic anemia:
-Fe studies c/w Fe def anemia
-IV Ferrlecit
Leukopenia with neutropenia (ANC 1000)
FULL/Heparin
Total time spent on today's encounter was 50 minutes which included time spent in counseling the patient/family regarding diagnosis and treatment plan as listed above, goals of care, and symptom management. Case was discussed with nursing staff,
specialists, and care coordinators/case management. All labs and imaging personally reviewed by me. Remainder the time spent in detailed review of previous records, lab data, imaging, and other medical provider documentation.
[2024-06-13 10:47] LABS: Glucose - Point of Care 84 mg/dl (70-99)
[2024-06-13] MEDS: SOLU-MEDROL PF 40 MG IV ×2 (11:03→21:12)
[2024-06-13 11:07] VITALS: BP 141/98
[2024-06-13] MEDS: TYLENOL 650 MG PO (12:09)
[2024-06-13 12:45] LABS: Glucose - Point of Care 83 mg/dl (70-99)
[2024-06-13] MEDS: MORPHINE SULFATE 1 MG IV ×2 (13:10→21:12)
[2024-06-13] MEDS: FERRLECIT 110 MG IV (14:16)
[2024-06-13 14:49] LABS: Blood Urea Nitrogen 24 mg/dl (7-17); Calcium 8.6 mg/dl (8.4-10.2); Carbon Dioxide 17 mmol/L (22-30); Chloride 112 mmol/L (98-107); Estimated Creatinine Clearance 67 ml/min; Glucose 100 mg/dl (70-99); Potassium 5.6 mmol/L (3.5-5.1); Sodium 139 mmol/L (135-145); eGFR > 60.00
[2024-06-13 14:49] LABS: Glucose - Point of Care 111 mg/dl (70-99)
[2024-06-13 15:22] VITALS: BP 150/108
--- NOTE | 2024-06-13 16:52 | CM ---
Alert awake oriented patient who lives with her SO Panda and his parents in a 3 story home with 3 steps to enter and 12 steps to bed/bathroom. She is independent in activates of daily living.She does not drive .No adaptive devices.
No VN in past . No SNF hx
Pharmacy [facility] [address] Dr Thornton
PLAN Home with no needs
[2024-06-13 19:44] VITALS: BP 160/103
[2024-06-13] MEDS: MELATONIN 5 MG PO (21:13)
[2024-06-13 23:00] VITALS: BP 155/112
[2024-06-13 23:24] LABS: Protein/creatinine Ratio 11.5; Urine Protein 554 mg/dl
[2024-06-14] VITALS (7 sets, daily range): BP systolic 124–157; BP diastolic 83–110
[2024-06-14] MEDS: SODIUM BICARBONATE 1150 MEQ IV ×2 (00:28→08:21)
--- NOTE | 2024-06-14 04:04 | DOWNTIME ---
There was a [employer] Downtime on 06/14/2024 from 0100 to 06/14/2024 at 0355. Downtime documentation of patient's care, including medication administrations, has been reconciled in the electronic record per guidelines. Refer to the
patient's paper chart under the miscellaneous tab to see printed paper medication records and downtime forms.
[2024-06-14] MEDS: LOKELMA 10 GRAM PO ×3 (05:37→19:32)
[2024-06-14] MEDS: ZOFRAN 4 MG IV ×3 (05:42→19:32)
[2024-06-14] MEDS: VENTOLIN NEBULES 2.5 MG INH (07:38)
[2024-06-14] MEDS: PROCARDIA XL (EXTENDED RELEASE) 30 MG PO ×2 (08:24→12:06)
[2024-06-14] MEDS: CELLCEPT 1000 MG PO ×2 (08:24→21:11)
[2024-06-14] MEDS: PLAQUENIL 200 MG PO (08:24)
[2024-06-14 09:04] LABS: Hematocrit 21.3 % (37.0-47.0); Hemoglobin 7.2 g/dL (12.0-16.0); Mean Corp Hgb Conc. 33.8 g/dL (33.0-37.0); Mean Corpuscular Hgb 24.8 pg (27.0-31.0); Mean Corpuscular Volume 73.4 fL (81.0-99.0); Mean Platelet Volume 10.4 fL (7.4-10.4); Platelet Count 281 10^3/uL (130-400); Red Cell Dist. Width 13.9 % (11.5-14.5); White Blood Cell Count 3.5 10^3/uL (4.8-10.8)
--- NOTE | 2024-06-14 09:47 | W.PN.HOSP.TC ---
Addendum entered and electronically signed by Anthony Forbes MD 06/14/24 11:10:
I saw and evaluated the patient. I reviewed the resident�s note and agree with findings and plan as documented in the resident�s note.
No new complaints today.
Pt seen and examined with nurse Delilah Salas present at bedside:
Gen: NAD, AAOx3.
Eyes: EOMI, PERRLA, no scleral icterus.
Neck: supple.
CV: continues to remain RRR, +S1/S2, no m/r/g.
Resp: continues to remain CTAB, no rales, wheezes, or rhonchi.
Abd: continues to remain +BS, soft, NT, ND
Skin: No rashes.
Neuro: CN 2-12 intact, non-focal.
Psych: Normal mood and affect.
R hand Xray: No acute fracture or dislocation.
Chronic SLE with lupus nephritis:
-Cr 04/05/24 was 1.4, 1.6 on admission, now 1.2 after IVFs (this qualifies for EMILY, POA)
-AGMA resolved and hyperkalemia improving, stop IVFs
-pt had been noncompliant with Cellcept, now restarted
-cont Plaquenil
-rheum on 'curbside c/s'
-reinforced the need for outpt rheum follow up
-s/p 10mg IV decadron on 06/12/24 with improvement in joint edema and pain. Start Solu-Medrol 40mg IV Q12H.
-pain control with Tylenol, Ultram PRN, IV morphine PRN
Elevated BPs:
-Patient states she has been on antihypertensives in the past but never standing doses. She attributes her current BPs to stress. I explained that DBP of 122 is too high to be due to stress alone.
-increase Procardia XL to 60mg daily
-note allergy to ACEi, avoid ACEi/ARBs
Microcytic anemia:
-Fe studies c/w Fe def anemia
-cont IV Ferrlecit
-transfuse 1U pRBCs
Leukopenia with neutropenia (ANC 1000)
FULL/Heparin
Original Note:
Today's Communication/Plan
-
Repeat BMP
repeat cbc
monitor blood pressure
Follow autoimmune profile
continue steroids
Assessment / Plan
Assessment / Plan
IMPRESSION
A 23-year-old female, known case of lupus nephritis for 5 years taking CellCept and hydroxychloroquine as a maintenance regimen, presented with high blood pressures, joint swelling , pain, and generalized weakness. Admitted for lupus flare-up.
Current labs show hyperkalemia and metabolic acidosis.
ASSESSMENT
# Hyperkalemia
# Metabolic acidosis
# High blood pressure
#SLE
PLAN
# Hyperkalemia
Patient had a potassium level of 6.5 on June 13, 2024
Repeat potassium levels at 1400 after managing hyperkalemia, 5.6 and today on it is 5.2
Patient is on Lokelma 10g three times a day
Monitor potassium levels
Patient is allergic to KATERINA inhibitors, avoid KATERINA inhibitors and ARB and any NSAIDs
# Metabolic acidosis
Patient had a bicarb level of 12 on May
Replaced 150meq of sodium bicarbonate
Repeat bicarb at 1400 jun 13 was 17,on it is 24
patient's serum creatinine is 1.2
# High blood pressure
Patient has taken blood pressure medications in the past but is not on any scheduled BP medication
Attributes to the stress of moving from [place]
Diastolic blood pressure too high to be simple stress as a cause of high blood pressure
Patient advised Procardia 30mg daily
Monitor blood pressure
#SLE
Diagnosed with SLE about 5 years ago
Takes CellCept and hydroxychloroquine
Ran out of medication and presented to emergency with high blood pressures
Manage blood pressure
Continue home dose of CellCept and hydroxychloroquine
RHEUMATOLOGY CURBSIDE___>Advised autoimmune profile and recommended to continue steroids
Microcytic anemia-IV ferric gluconate
Leukopenia
Full code
DVT prophylaxis low molecular weight heparin
Anticipated Discharge: 24 - 48 hours
Subjective/Interval History
-
Date of Service: June 14, 2024
No active issues,says pain is well controlled,had her bowel movement today in the morning,able to walk around and says swelling has improved
Objective Data
-
Labs:
Laboratory Results
06/14/24
06:54
WBC 3.5 L
Hgb 7.2 L
Hct 21.3 L
Plt Count 281
Sodium Pending
Potassium Pending
Chloride Pending
Carbon Dioxide Pending
BUN Pending
Creatinine Pending
Glucose Pending
Calcium Pending
Total Bilirubin Pending
AST Pending
ALT Pending
Alkaline Phosphatase Pending
Vital Signs:
Vital Signs
Temp Pulse Resp BP Pulse Ox
98.3 F 71 18 156/98 97
06/14/24 07:35 06/14/24 07:40 06/14/24 07:40 06/14/24 07:35 06/14/24 07:40
I&O
06/13/24 06/14/24 06/15/24
06:59 06:59 06:59
Intake Total 240 / 240 1600 / 1600
Output Total 800 / 800
Balance 240 / 240 800 / 800
Review of Systems
-
All other systems: Reviewed and negative
Physical Exam
-
General: Well Developed, No Apparent Distress, Comfortable and Conversant
HEENT: Moist Mucous Membranes, Anicteric and PERRLA
Respiratory: Clear to Auscultation
Cardiac: Regular Rhythm and S1/S2
GI: Normal Bowel Sounds (Decreased bowel sounds most likely related to opioids)
Genito-urinary: No Costovertebral Tender
Musculoskeletal: No Clubbing and No Edema
Skin: Warm and Dry (with some thickening of skin of face)
Neuro: Awake, Alert and Oriented
Hematologic / Lymphatic: No Lymphadenopathy
Psych: Calm
[2024-06-14 09:49] LABS: ALT (SGPT) 14 U/L (0-35); AST (SGOT) 46 U/L (14-36); Albumin 2.6 g/dl (3.5-5.0); Alkaline Phosphatase 42 U/L (38-126); Blood Urea Nitrogen 25 mg/dl (7-17); Calcium 7.9 mg/dl (8.4-10.2); Carbon Dioxide 24 mmol/L (22-30); Chloride 104 mmol/L (98-107); Estimated Creatinine Clearance 61 ml/min; Glucose 96 mg/dl (70-99); Potassium 5.2 mmol/L (3.5-5.1); Sodium 138 mmol/L (135-145); Total Bilirubin 0.1 mg/dl (0.2-1.3); Total Protein 5.9 g/dl (6.3-8.2); eGFR > 60.00
[2024-06-14] MEDS: SOLU-MEDROL PF 40 MG IV ×2 (10:21→21:11)
[2024-06-14 13:05] LABS: Absolute Neutrophils -Man Diff 2.8 10^3/uL (1.4-6.5); Band Neutrophils 1 % (0-3); Lymphocytes 16 % (20-51); Monocytes 3 % (2-9); Normal RBC Morphology No; Platelets Checked Yes; Segmented Neutrophils 80 % (42-75)
[2024-06-14 13:07] LABS: Hypochromasia 1+; Microcytosis 1+; Rouleaux 1+; Total Cells Counted 100
[2024-06-14] MEDS: FERRLECIT 110 MG IV (13:11)
[2024-06-14] MEDS: MORPHINE SULFATE 1 MG IV ×2 (13:15→19:32)
[2024-06-14] MEDS: HYDROPHOR 1 APPLIC TOPICAL (15:03)
[2024-06-14] MEDS: MELATONIN 5 MG PO (21:11)
[2024-06-15 03:38] VITALS: BP 146/104
[2024-06-15] MEDS: MORPHINE SULFATE 1 MG IV (04:34)
[2024-06-15 04:40] LABS: Complement C3 < 40 mg/dl (88-165)
[2024-06-15] MEDS: ZOFRAN 4 MG IV (05:20)
[2024-06-15 06:14] LABS: % Basophils 0.2 % (0-2); % Immature Granulocytes 0.4 % (0-0.5); % Lymphocytes 22.8 % (20.5-51.1); % Monocytes 6.5 % (1.7-9.3); % Neutrophils 70.1 % (42.2-75.2); Absolute Lymphocytes 1.1 10^3/uL (1.2-3.4); Absolute Monocytes 0.3 10^3/uL (0.1-0.6); Absolute Neutrophils 3.3 10^3/uL (1.4-6.5); Hematocrit 28.9 % (37.0-47.0); Mean Corp Hgb Conc. 34.6 g/dL (33.0-37.0); Mean Corpuscular Hgb 26.2 pg (27.0-31.0); Mean Corpuscular Volume 75.7 fL (81.0-99.0); Nucleated Red Blood Cells % 0 %; Platelet Count 353 10^3/uL (130-400); Red Blood Cell Count 3.82 10^6/uL (4.20-5.40); Red Cell Dist. Width 13.7 % (11.5-14.5); White Blood Cell Count 4.7 10^3/uL (4.8-10.8)
[2024-06-15 06:37] LABS: ALT (SGPT) 14 U/L (0-35); AST (SGOT) 45 U/L (14-36); Albumin 2.6 g/dl (3.5-5.0); Alkaline Phosphatase 40 U/L (38-126); Blood Urea Nitrogen 29 mg/dl (7-17); Calcium 7.9 mg/dl (8.4-10.2); Carbon Dioxide 27 mmol/L (22-30); Chloride 102 mmol/L (98-107); Estimated Creatinine Clearance 57 ml/min; Glucose 104 mg/dl (70-99); Potassium 4.9 mmol/L (3.5-5.1); Sodium 138 mmol/L (135-145); Total Bilirubin 0.2 mg/dl (0.2-1.3)
[2024-06-15 07:30] VITALS: BP 161/112
[2024-06-15] MEDS: VENTOLIN NEBULES 2.5 MG INH (07:50)
--- NOTE | 2024-06-15 08:59 | W.PN.HOSP.TC ---
Today's Communication/Plan
-
d/c
Assessment / Plan
Assessment / Plan
Pt seen and examined with nurse Delilah Salas present at bedside:
Gen: remains NAD, AAOx3.
Eyes: EOMI, PERRLA, no scleral icterus.
Neck: supple.
CV: RRR, +S1/S2, no m/r/g.
Resp: CTAB, no rales, wheezes, or rhonchi.
Abd: +BS, soft, NT, ND
Skin: intact
Neuro: CN 2-12 intact, non-focal.
Psych: Normal mood and affect.
R hand Xray: No acute fracture or dislocation.
Chronic SLE with lupus nephritis:
-Cr 04/05/24 was 1.4, 1.6 on admission, now 1.3 after IVFs (EMILY, POA)
-AGMA and hyperkalemia now resolved with IVFs (NaHCO3)
-pt had been noncompliant with Cellcept, now restarted
-cont Plaquenil
-rheum on 'curbside c/s'
-reinforced the need for outpt rheum follow up
-s/p 10mg IV decadron on 06/12/24 with improvement in joint edema and pain. The patient had further improvement while on IV Solu-Medrol while hospitalized. Will be discharged on prednisone taper.
-Of note, patient instructed to obtain CellCept prescription from her management advisor
Elevated BPs:
-Patient states she has been on antihypertensives in the past but never standing doses. She attributes her current BPs to stress. I explained that DBP of 122 is too high to be due to stress alone.
-cont Procardia XL 60mg daily
-note allergy to ACEi, avoid ACEi/ARBs
Microcytic anemia:
-Fe studies c/w Fe def anemia
-Received IV Ferrlecit
-s/p 1U pRBCs
Leukopenia
Neutropenia, now resolved with neutropenia (ANC 1000)
FULL/heparin
Medically cleared for discharge.
Total time spent on d/c = 31 min. This included today's physical exam, progress note, review of laboratory and diagnostic data, preparation of discharge documents and prescriptions, and discussions about the pt's hospital course and discharge plan
with the patient and other director of medical services involved in the patient's care.
Anticipated Discharge: Today
Subjective/Interval History
-
Date of Service: June 15, 2024
No new complaints.
Objective Data
-
Labs:
Laboratory Results
06/15/24
04:29
WBC 4.7 L
Hgb 10.0 L D
Hct 28.9 L
Plt Count 353 D
Sodium 138
Potassium 4.9
Chloride 102
Carbon Dioxide 27
BUN 29 H
Creatinine 1.3 H
Glucose 104 H
Calcium 7.9 L
Total Bilirubin 0.2
AST 45 H
ALT 14
Alkaline Phosphatase 40
Vital Signs:
Vital Signs
Temp Pulse Resp BP Pulse Ox
97.6 F 72 15 161/112 100
06/15/24 07:30 06/15/24 07:53 06/15/24 07:53 06/15/24 07:30 06/15/24 07:53
I&O
06/14/24 06/15/24 06/16/24
06:59 06:59 06:59
Intake Total 1600 / 1600 3120 / 3120
Output Total 800 / 800
Balance 800 / 800 3120 / 3120
[2024-06-15] MEDS: SOLU-MEDROL PF 40 MG IV (10:13)
[2024-06-15] MEDS: CELLCEPT 1000 MG PO (10:13)
[2024-06-15] MEDS: PROCARDIA XL (EXTENDED RELEASE) 60 MG PO (10:13)
[2024-06-15] MEDS: PLAQUENIL 200 MG PO (10:13)
--- NOTE | 2024-06-15 14:16 | W.DCSUMMARY ---
Discharge Summary
Discharge Data
Date of Admission: 06/12/24
Date of Discharge: 06/15/24
-
Pending Results: Yes
Additional Pending Results:
Lupus antibodies including BEULAH, anti-sm/LAB CLERK, SSA/SSB, Anti-dsDNA, Beta-2-GPI, anticardiolipin
Hospital Course
Primary Diagnoses:
Acute flare of systemic lupus erythematosus
Anion gap metabolic acidosis
Acute kidney injury
Hyperkalemia
Elevated blood pressure
Microcytic anemia
Secondary Diagnoses:
Leukopenia
Neutropenia
Consultants:
None
Imaging:
R hand Xray: No acute fracture or dislocation.
23-year-old female who presented with chief complaints of upper extremity and right lower extremity pain and edema as outlined in the H&P done on admission. Hospital course per problem list:
Chronic SLE with h/o lupus nephritis: On admission the patient's creatinine was 1.6. It improved to a kishan of 1.1 with IVFs. Her acute kidney injury that was present on admission resolved. She also had an anion gap metabolic acidosis and
hyperkalemia that resolved with IV fluids containing sodium bicarbonate. Prior to admission she had been noncompliant with her CellCept but had been compliant with her Plaquenil. On the day of admission she was supposed to see rheumatology to
establish care as she recently moved to the area. She was given CellCept while hospitalized but on discharge it was explained to the patient that she will need to establish care with rheumatology to obtain further CellCept. She was treated with IV
Solu-Medrol and had resolution of her right upper extremity right lower extremity pain and edema. Rheumatology was curb sided. Many serologies are pending at this time. Of note her C3 and C4 were below the lower limit of detection.
Elevated BPs: The patient reported that she had been on antihypertensives in the past but never standing doses. She attributed her elevated blood pressures on admission to stress. It was explained to the patient that her blood pressures were too
high to be attributed to stress alone. The patient was started on Procardia XL which was uptitrated to 60 mg daily.
Microcytic anemia: Patient's iron studies were consistent with iron deficiency anemia. She received IV Ferrlecit and 1U pRBCs while hospitalized.
Discharge Plan
-
Patient Disposition: Home (Routine Discharge)
Discharge Diagnosis/Procedures: acute flare of systemic lupus erythematosus, anion gap metabolic acidosis, acute kidney injury, hyperkalemia, elevated blood pressure, microcytic anemia, leukopenia, neutropenia
Condition: Good
Diet: Low Sodium
Activity: As tolerated
Driving Restrictions: As prior to admission
Blood Work: BMP and CBC in 1 week, script from PCP
Activity Restrictions/Additional Instructions:
You need to establish care with rheumatology. Should your popcorn machine operator wish to continue CellCept that popcorn machine operator will need to prescribe it.
Referrals:
PRIVATE,PHYSICIAN [Family Provider] - in less than 1 week
Prescriptions:
New
nifedipine 60 mg Tablet Extended Release
60 mg PO DAILY Qty: 30 0RF
prednisone 10 mg tablet
10 mg PO DIRECTED Qty: 30 0RF
Rx Instructions:
Taper: 40mg daily x 3 days, 30mg daily x 3 days, 20mg daily x 3 days, 10mg daily x 3 days
Continued
hydroxychloroquine [Plaquenil] 200 mg tablet
200 mg PO DAILY Qty: 7 0RF
Discontinued
mycophenolate mofetil [CellCept] 500 mg Tablet
1,000 mg PO BID
Patient Comments:
pt has not had recent appt with popcorn machine operator to get prescription filled.
Discharge Orders:
Discharge Patient (As Directed); Ordered 06/15/24
Ordered By: Anthony Forbes
Discharge Date and Time
Discharge Date/Time: 06/15/24 14:09
Print Language: ANDORRAN
--- NOTE | 2024-06-15 16:47 | CM ---
entered order for dc.
Pt had iron and blood transfusion yesterday.
Pt said she feels better and is ready for dc.
Scot will drive her home.
Declined VN
PLAN Home no needs
[2024-06-15 23:37] LABS: ANA, IgG Reflex to HEp-2 Detected (None Detected)
[2024-06-16 00:05] LABS: Cardiolipin Igg Antibody 21 GPL (<=14)
[2024-06-16 00:10] LABS: ds-DNA Ab, IgG Reflex To Titer 299 IU (0-24)
[2024-06-16 01:50] LABS: Beta-2-Glycoprotein I Ab. IgG <10 SGU (<=20); Beta-2-Glycoprotein I Ab. IgM <10 SMU (<=20)
== END 2024-06-15 14:09 | disposition home or self-care (01) | DRG 546 ==
LOC: 4 EAST ACU 10:02
PROVIDERS: Nurse Practitioner; ADMITTING PHYSICIAN Internal Medicine; EMERGENCY PHYSICIAN Emergency Medicine
PROC: 30233N1 Transfusion of Nonautologous Red Blood Cells into Peripheral Vein, Percutaneous Approach (ICD-10-PCS; 2024-06-14)
DX: M32.14 Glomerular disease in systemic lupus erythematosus (principal); E87.20 Acidosis, unspecified; N18.4 Chronic kidney disease, stage 4 (severe); N17.9 Acute kidney failure, unspecified; E87.5 Hyperkalemia; T45.1X6A Underdosing of antineoplastic and immunosuppressive drugs, initial encounter; D50.9 Iron deficiency anemia, unspecified; I10 Essential (primary) hypertension; D70.9 Neutropenia, unspecified; Z91.138 Patient's unintentional underdosing of medication regimen for other reason; Z79.69 Long term (current) use of other immunomodulators and immunosuppressants; Z88.8 Allergy status to other drugs, medicaments and biological substances
CPT/HCPCS: 80048; 80053; 81003; 81015; 82570; 82728; 82962; 83540; 83550; 84156; 84703; 85025; 85610; 85613; 85730; 86038; 86146; 86147; 86160; 86225; 86235; 86850; 86900; 86901; 86920; 87077; 87086; 87186; 93005; 94640; 96361; 96374; 96375; 99285; J2916; P9016

== ENCOUNTER 2024-07-02 13:34 | Inpatient (IN) | payer OTHER, SELFPAY ==
[2024-07-02] VITALS (15 sets, daily range): BP systolic 143–170; BP diastolic 84–124; BMI 28.3
--- NOTE | 2024-07-02 10:04 | ED.GENMED ---
Addendum entered and electronically signed by Albaro June MD 07/02/24 16:26:
We were called into the room after patient set up for chest x-ray and route to IVU. Became lightheaded weak headache. Became tachycardic at 150. Narrow complex. Blood pressure remained stable. Patient was returned to room 31. At that time her
heart rate slowly decreased down towards 110+ level. Was a sinus tachycardia. Remained in no respiratory distress. No chest pain. Headache resolved. Cardiology was contacted along with the hospitalist.
Addendum entered and electronically signed by EMILY Machado 07/02/24 16:25:
Patient back from chest x-ray called into room by nurse as patient became very lightheaded after sitting up for x-ray and heart rate went to 160s. Both myself and DR Slade colón pt. Pt very anxious however none hypoxic blood pressure in the 150s,
heart rate in the 160s EKG done shows sinus tach.
Heart rate decreased by itself on its own without any intervention.
Admitting hospitalist called to bedside
Original Note:
History of Present Illness
<EMILY Machado - Last Filed: 07/02/24 15:20>
General
Chief Complaint: Swelling
Source: patient
Exam Limitations: none
Time Seen by Provider: 07/02/24 09:15
Nursing documentation reviewed up to this point in time: agreed with
History of Present Illness
History of Present Illness:
Patient is a 23-year-old female with lupus, lupus nephritis presents ER for evaluation.Patient was just admitted several weeks ago June 12 and discharged June 15 for acute kidney injury metabolic acidosis and hyperkalemia along with upper and
lower extremity pain and some.
She was discharged on Procardia for hypertension. In addition she has been taking her Plaquenil and CellCept. She is scheduled to see Dr. Obdulio Prado of rheumatology this week on July 04.
She presents to the ER today however with increasing swelling since she was discharged. She complains of worsening swelling in her abdomen that wraps around to her back and right upper extremity and bilateral lower extremities. In addition she
complains of feeling short of breath and was very short of breath this morning which is what prompted her to come to the ER.
patient is new to this area. She moved here in February from [facility]. While in [place] she had multiple paracentesis for abdominal swelling. She believes the last 1 was in January.
She complains of joint pain nausea diarrhea and headaches for the past several days. She reports she is compliant with her medications.
Past History
<EMILY Machado - Last Filed: 07/02/24 15:20>
Past History
ED Past Medical History: Other (Lupus/lupus nephritis/pleural effusions/ascites)
ED Past Surgical History: Other (Exploratory laparotomy)
Review of Systems
<EMILY Machado - Last Filed: 07/02/24 15:20>
Review of Systems
Allergies reviewed?: Yes
All Other Systems: ROS reviewed and negative except as documented in HPI and ROS
Constitutional: Reports no symptoms; Denies fever, fatigue or chills
EENT: Reports no symptoms
Respiratory: Reports trouble breathing
Cardiac: Reports no symptoms
ABD/GI: Reports other (abdominal swelling )
: Reports no symptoms
Musculoskeletal: Reports no symptoms
Skin: Reports no symptoms
Neurological: Reports other (swelling to extremities )
Psychiatric: Reports no symptoms
Phy Exam
<EMILY Machado - Last Filed: 07/02/24 15:20>
General Physical Exam
General Presentation: no apparent distress
General age: appears stated age
General Skin: warm and dry
General Habitus: normal
General Mental: alert
General Hydration: appears well hydrated
Cardiovascular Exam
Cardiovascular Exam: tachycardia
Pulmonary Exam
Pulmonary Exam: lungs clear and no respiratory distress
Gastrointestinal Exam
Gastrointestinal Exam: soft and other (old surgical scar mildly distended mildly tender)
Neurological Exam
Neurological Exam: alert and oriented x3
Musculoskeletal Exam
Musculoskeletal Exam: other (swelling to b/l l/e and right hand )
Skin Exam
Skin Exam: normal color and warm/dry
Psychiatric Exam
Psychiatric Exam: normal mood/affect
Course
<EMILY Machado - Last Filed: 07/02/24 15:20>
Orders/Labs/Results
Orders:
Orders
07/02/24 10:17
Cardiac Monitoring- Treatment ONCE
IV Insert/Care/Rem.- Treatment PRN
07/02/24 10:18
Electrocardiogram (*1) Stat
Reason for Study: Abdominal Pain
EKG- Treatment ONCE
Test Result ONCE
07/02/24 10:23
Urinalysis Reflex To Culture Urgent
Date Specimen was Collected: 07/02/24
Time Specimen was Collected: 10:21
Urine Microscopic Reflex Cult Urgent
Urine Culture Urgent
DANAY Source: U
Specimen Description:
Date Specimen was Collected: 07/02/24
Time Specimen was Collected: 10:21
07/02/24 10:29
Complete Blood Count/With Diff Urgent
Comprehensive Metabolic Panel Urgent
HCG, Serum Qualitative Screen Urgent
07/02/24 11:20
CT Abd/pel Without Iv Or Oral Urgent
Comment:
Reason For Exam: abd distention hx of paracentesis in past + lupus
07/02/24 12:09
NIFEdipine EXTENDED RELEASE [Procardia Xl (Extended Release)] 60 mg PO NOW STA
07/02/24 13:07
Morphine Sulfate 2 mg IV NOW STA
Ondansetron Injectable [Zofran] 4 mg IV NOW STA
07/02/24 13:08
Admit/Transfer Patient As Directed
Co-Sign Provider:
Level of Care: Inpatient admission
Assign to:: IVU
Physician / Group: Alessandra/Hospitalist
Diagnosis: mod to large pericardial effusion and loculated pleural effusion, SLE, EMILY
Reason for Hospitalization: mod to large pericardial effusion and loculated pleural effusion, SLE, EMILY
Expected length of stay greater than two midnights?: Yes
ELOS- Estimated Length of Stay in days: 3
I certify the patient meets the requirements for IP care: Yes
0.9% Sodium Chloride 250 ml [Nss] 250 ml IV BOLUS
07/02/24 13:09
PRN Pain Medication Management As Directed
May give lesser potent ordered pain med per pt: Yes
preference::
Protocol:: Medication orders for pain may be administered in a
manner that supports deferring to patient preference
when the pt is:
- Requesting an ordered lesser potent pain medication.
Least to most potent pain medications are defined
as: acetaminophen < NSAID < tramadol < opioids
(morphine, oxycodone, hydromorphone).
- Requesting a lesser dose of the same medication IF
ORDERED.
- Requesting a less intrusive route of administration
if both routes are prescribed by the provider (PO <
IV).
07/02/24 13:12
Code Status As Directed
Resuscitation Status: Full Code
07/02/24 13:25
CR Chest - 2 Views Stat
Comment:
Reason For Exam: SOB, effusion
07/02/24 13:35
PRN Pain Medication Management As Directed
May give lesser potent ordered pain med per pt: Yes
preference::
Protocol:: Medication orders for pain may be administered in a
manner that supports deferring to patient preference
when the pt is:
- Requesting an ordered lesser potent pain medication.
Least to most potent pain medications are defined
as: acetaminophen < NSAID < tramadol < opioids
(morphine, oxycodone, hydromorphone).
- Requesting a lesser dose of the same medication IF
ORDERED.
- Requesting a less intrusive route of administration
if both routes are prescribed by the provider (PO <
IV).
07/05/24 11:00
DC Protocol for Telemetry ONCE
Abnormal Lab Results
07/02/24 07/02/24
10:23 10:29
RBC 3.48 L 10^6/uL
(4.20-5.40)
Hgb 8.8 L g/dL
(12.0-16.0)
Hct 26.7 L %
(37.0-47.0)
MCV 76.7 L fL
(81.0-99.0)
MCH 25.3 L pg
(27.0-31.0)
RDW 16.3 H %
(11.5-14.5)
Abs Immat Gran (auto) 0.1 H 10^3/uL
(0-0.05)
Absolute Lymphs (auto) 1.1 L 10^3/uL
(1.2-3.4)
Immature Gran % 1.5 H %
(0-0.5)
Monocytes % 9.8 H %
(1.7-9.3)
Chloride 112 H mmol/L
(98-107)
Carbon Dioxide 21 L mmol/L
(22-30)
BUN 28 H mg/dl
(7-17)
Creatinine 1.6 H mg/dL
(0.6-1.0)
Total Protein 5.8 L g/dl
(6.3-8.2)
Albumin 2.6 L g/dl
(3.5-5.0)
Ur Occult Blood Reflex 3+ A
(Negative)
Leukocyte Esterase Rfl Trace A
(Negative)
Urine RBC 11-15 A /HPF
(0-2)
Urine WBC (Reflex) 11-15 A /HPF
(0-5)
Urine Bacteria (Reflex) Few A
(Negative)
Urine Albumin (Reflex) 3+ A
(Neg - Trace)
07/02/24 10:29
07/02/24 10:29
Vital Signs
Initial and Last Documented VS:
Initial Vital Signs
Temp Pulse Resp BP Pulse Ox
99.3 F 93 18 166/119 96
07/02/24 08:39 07/02/24 08:39 07/02/24 08:39 07/02/24 08:39 07/02/24 08:39
Last Documented Vital Signs
Temp Pulse Resp BP Pulse Ox
99.3 F 103 24 155/114 96
07/02/24 08:39 07/02/24 15:00 07/02/24 15:00 07/02/24 14:00 07/02/24 15:00
Service Desk Director consulted with Physician
Service Desk Director consulted with physician?: Yes
Name of Physician Consulted:
<Albaro June MD - Last Filed: 07/02/24 12:14>
Orders/Labs/Results
Orders:
Orders
07/02/24 10:17
Cardiac Monitoring- Treatment ONCE
IV Insert/Care/Rem.- Treatment PRN
07/02/24 10:18
Electrocardiogram (*1) Stat
Reason for Study: Abdominal Pain
EKG- Treatment ONCE
Test Result ONCE
07/02/24 10:23
Urinalysis Reflex To Culture Urgent
Date Specimen was Collected: 07/02/24
Time Specimen was Collected: 10:21
Urine Microscopic Reflex Cult Urgent
Urine Culture Urgent
DANAY Source: U
Specimen Description:
Date Specimen was Collected: 07/02/24
Time Specimen was Collected: 10:21
07/02/24 10:29
Complete Blood Count/With Diff Urgent
Comprehensive Metabolic Panel Urgent
HCG, Serum Qualitative Screen Urgent
07/02/24 11:20
CT Abd/pel Without Iv Or Oral Urgent
Comment:
Reason For Exam: abd distention hx of paracentesis in past + lupus
07/02/24 12:09
NIFEdipine EXTENDED RELEASE [Procardia Xl (Extended Release)] 60 mg PO NOW STA
07/02/24 13:07
Morphine Sulfate 2 mg IV NOW STA
Ondansetron Injectable [Zofran] 4 mg IV NOW STA
07/02/24 13:08
Admit/Transfer Patient As Directed
Co-Sign Provider:
Level of Care: Inpatient admission
Assign to:: IVU
Physician / Group: Alessandra/Hospitalist
Diagnosis: mod to large pericardial effusion and loculated pleural effusion, SLE, EMILY
Reason for Hospitalization: mod to large pericardial effusion and loculated pleural effusion, SLE, EMILY
Expected length of stay greater than two midnights?: Yes
ELOS- Estimated Length of Stay in days: 3
I certify the patient meets the requirements for IP care: Yes
0.9% Sodium Chloride 250 ml [Nss] 250 ml IV BOLUS
07/02/24 13:09
PRN Pain Medication Management As Directed
May give lesser potent ordered pain med per pt: Yes
preference::
Protocol:: Medication orders for pain may be administered in a
manner that supports deferring to patient preference
when the pt is:
- Requesting an ordered lesser potent pain medication.
Least to most potent pain medications are defined
as: acetaminophen < NSAID < tramadol < opioids
(morphine, oxycodone, hydromorphone).
- Requesting a lesser dose of the same medication IF
ORDERED.
- Requesting a less intrusive route of administration
if both routes are prescribed by the provider (PO <
IV).
07/02/24 13:12
Code Status As Directed
Resuscitation Status: Full Code
07/02/24 13:25
CR Chest - 2 Views Stat
Comment:
Reason For Exam: SOB, effusion
07/02/24 13:35
PRN Pain Medication Management As Directed
May give lesser potent ordered pain med per pt: Yes
preference::
Protocol:: Medication orders for pain may be administered in a
manner that supports deferring to patient preference
when the pt is:
- Requesting an ordered lesser potent pain medication.
Least to most potent pain medications are defined
as: acetaminophen < NSAID < tramadol < opioids
(morphine, oxycodone, hydromorphone).
- Requesting a lesser dose of the same medication IF
ORDERED.
- Requesting a less intrusive route of administration
if both routes are prescribed by the provider (PO <
IV).
07/05/24 11:00
DC Protocol for Telemetry ONCE
Abnormal Lab Results
07/02/24 07/02/24
10:23 10:29
RBC 3.48 L 10^6/uL
(4.20-5.40)
Hgb 8.8 L g/dL
(12.0-16.0)
Hct 26.7 L %
(37.0-47.0)
MCV 76.7 L fL
(81.0-99.0)
MCH 25.3 L pg
(27.0-31.0)
RDW 16.3 H %
(11.5-14.5)
Abs Immat Gran (auto) 0.1 H 10^3/uL
(0-0.05)
Absolute Lymphs (auto) 1.1 L 10^3/uL
(1.2-3.4)
Immature Gran % 1.5 H %
(0-0.5)
Monocytes % 9.8 H %
(1.7-9.3)
Chloride 112 H mmol/L
(98-107)
Carbon Dioxide 21 L mmol/L
(22-30)
BUN 28 H mg/dl
(7-17)
Creatinine 1.6 H mg/dL
(0.6-1.0)
Total Protein 5.8 L g/dl
(6.3-8.2)
Albumin 2.6 L g/dl
(3.5-5.0)
Ur Occult Blood Reflex 3+ A
(Negative)
Leukocyte Esterase Rfl Trace A
(Negative)
Urine RBC 11-15 A /HPF
(0-2)
Urine WBC (Reflex) 11-15 A /HPF
(0-5)
Urine Bacteria (Reflex) Few A
(Negative)
Urine Albumin (Reflex) 3+ A
(Neg - Trace)
07/02/24 10:29
07/02/24 10:29
Vital Signs
Initial and Last Documented VS:
Initial Vital Signs
Temp Pulse Resp BP Pulse Ox
99.3 F 93 18 166/119 96
07/02/24 08:39 07/02/24 08:39 07/02/24 08:39 07/02/24 08:39 07/02/24 08:39
Last Documented Vital Signs
Temp Pulse Resp BP Pulse Ox
99.3 F 103 24 155/114 96
07/02/24 08:39 07/02/24 15:00 07/02/24 15:00 07/02/24 14:00 07/02/24 15:00
<EMILY Machado - Last Filed: 07/02/24 15:20>
MDM/Problems Addressed
MDM/Problems Addressed:
Patient is a 23-year-old female with significant lupus kidney issues presents to the ER for evaluation. Patient is document was here in May and since then has been taking her medications including Procardia for blood pressure but presents today
with increasing swelling in the abdomen and back and extremity swelling as well. Today she felt short of breath which is what prompted her to come to the ER. She continues to complain of joint pain. She admits to not taking her blood pressure
medicine today and she presents hypertensive. Abdomen distended she has moderate to large amount of ascites on CAT scan with third spacing incidentally patient has a moderate to large pericardial effusion and moderate right pleural effusion which
does appear to be loculated.
temp is 99.3 pt is anemia with HGB at 8.8 (slightly lower than June 15 of 10.0 ) ; patient's kidney function elevated however at baseline.
Patient has complicated medical history and with significant ascites pericardial effusion abdominal swelling with ascites will admit. Will notify cardiology and admitting hospitalist. Patient eval by ED physician.
Pt was evaluated by admitting hospitalist cardiology and nephrology. As discussed admitting hospitalist recommend transfer to facility with onsite rheumatology. Patient is scheduled to see rheumatology at [facility] as an outpatient this week as
documented in HPI.
I spoke to [facility] transfer center will except patient for admission within 24 hours however at this time no beds. Accepting physician will be DR Salazar at [facility]
<EMILY Machado - Last Filed: 07/02/24 15:20>
*Critical Care Note
Total Time (30-74mins, 75-104mins- exclusive of procedures): Not Applicable
ED Attending Note
<EMILY Machado - Last Filed: 07/02/24 15:20>
-
Portions of this chart may have been created with voice recognition software.� Occasional wrong word or��sound alike� substitutions may have occurred due to the inherent limitations of voice recognition software.
<Albaro June MD - Last Filed: 07/02/24 12:14>
ED Attending Note
Patient seen and examined by attending physician: Yes
I performed the substantive portion of visit, reviewed & personally made and approve the management plan that is documented in note by myself or MIGUELANGEL.: Yes
ED Attending Note:
23-year-old female complaining of swelling of her abdomen general achiness diffuse upper and lower extremity swelling. Progressive. History of lupus.
Final straw today was shortness of breath going up the stairs.
Exam shows decreased breath sounds at the right base. Slightly distended abdomen but soft and nontender. Edema of the arms and legs. Elevated blood pressure.
Complicated history with significant lupus. So far we know she has a moderate to large pericardial effusion and pleural effusion ascites. Significant blood pressure elevation. Clearly warrants admission. Will give her daily blood pressure
medications at home. Also contact hospitalist and cardiology
Discharge Plan
Departure
Patient Disposition: Admit
Date of Disposition: 07/02/24
Time of Disposition: 12:17
Admit to: Telemetry
Admit to doctor: hosptalist
Presentation/result/management discussed w/ accepting MD/DO: Hospitalist
Patient with high blood pressure during this ER visit?: Yes
Condition: Fair
Covid-19: Not Applicable
Discharge Problem:
Ascites, Acute pericardial effusion, Pleural effusion, Anemia, Acute renal insufficiency
Interventions
Interventions:
*Risk Screen - Suicide Last Done: 07/02/24 08:39
*General Assessment Last Done: 07/02/24 08:39
*Neglect/Abuse Screening Last Done: 07/02/24 08:39
ED- Fall Risk Assessment Last Done: 07/02/24 10:23
*ED COVID-19 Vaccine History Last Done: 07/02/24 10:23
QA-Bjebzn-Yonsfvcflv Assessment Last Done: 07/02/24 10:23
ED- Cardiac Assessment Last Done: 07/02/24 10:23
ED- Pulmonary Assessment Last Done: 07/02/24 10:23
ED-Skin Assessment Last Done: 07/02/24 10:23
[2024-07-02 10:46] LABS: Urine Albumin 3+ (Neg - Trace); Urine Bilirubin Negative (Negative); Urine Character Clear (Clear); Urine Color Yellow; Urine Glucose Negative (Negative); Urine Ketone Negative (Negative); Urine Leukocyte Trace (Negative); Urine Nitrite Negative (Negative); Urine Occult Blood 3+ (Negative); Urine Urobilinogen Negative (Neg - 1+)
[2024-07-02 10:46] LABS: % Basophils 0.2 % (0-2); % Eosinophils 1.1 % (0-6); % Immature Granulocytes 1.5 % (0-0.5); % Lymphocytes 21.1 % (20.5-51.1); % Monocytes 9.8 % (1.7-9.3); % Neutrophils 66.3 % (42.2-75.2); Absolute Eosinophils 0.1 10^3/uL (0-0.7); Absolute Immature Granulocytes 0.1 10^3/uL (0-0.05); Absolute Lymphocytes 1.1 10^3/uL (1.2-3.4); Absolute Monocytes 0.5 10^3/uL (0.1-0.6); Absolute Neutrophils 3.5 10^3/uL (1.4-6.5); Hematocrit 26.7 % (37.0-47.0); Hemoglobin 8.8 g/dL (12.0-16.0); Mean Corpuscular Hgb 25.3 pg (27.0-31.0); Mean Corpuscular Volume 76.7 fL (81.0-99.0); Nucleated Red Blood Cells % 0 %; Platelet Count 171 10^3/uL (130-400); Red Blood Cell Count 3.48 10^6/uL (4.20-5.40); Red Cell Dist. Width 16.3 % (11.5-14.5); White Blood Cell Count 5.2 10^3/uL (4.8-10.8)
[2024-07-02 10:56] LABS: HCG, Serum Qualitative Screen Negative
[2024-07-02 10:57] LABS: Urine Squamous Cell 21-25 /LPF (Few)
[2024-07-02 10:58] LABS: Urine Bacteria Few (Negative)
[2024-07-02 11:03] LABS: ALT (SGPT) < 10 U/L (0-35); AST (SGOT) 20 U/L (14-36); Albumin 2.6 g/dl (3.5-5.0); Alkaline Phosphatase 52 U/L (38-126); Blood Urea Nitrogen 28 mg/dl (7-17); Calcium 8.6 mg/dl (8.4-10.2); Carbon Dioxide 21 mmol/L (22-30); Chloride 112 mmol/L (98-107); Estimated Creatinine Clearance 51 ml/min; Glucose 77 mg/dl (70-99); Potassium 4.4 mmol/L (3.5-5.1); Sodium 141 mmol/L (135-145); Total Bilirubin 0.2 mg/dl (0.2-1.3); Total Protein 5.8 g/dl (6.3-8.2); eGFR 46.76
--- NOTE | 2024-07-02 12:28 | HPS.HSE ---
Addendum entered and electronically signed by Daphney Aparicio, 07/02/24 19:07:
Bed is available at [facility], accepting physician is Dr. Salazar.
Transfer medical necessity form filled out, transfer orders written, nurse spoke to transport.
Call placed to Dr. Salazar to discuss patient , and left voicemail at [phone].
Original Note:
Family Physician
-
Family Physician: Georgia Thornton
Chief Complaint
-
SOB, abd swelling
History of Present Illness
The patient is a 23 year old woman with PMH significant for Lupus nephritis (taking Plaquenil and CellCept), recently moved here from [place] and has her first new patient appointment with Rheumatology this week, scheduled to see Dr. Obdulio Crouch
5, (admitted here 06/12 to 06/15 due to flare of SLE, EMILY, anion gap metabolic acidosis, HTN-she was started on Procardia XL 60 mg at that time -, and hyperkalemia), presents to the ED due to shortness of breath that was worse this morning. In [place],
she had multiple paracentesis for abdominal swelling/acites, last time was in January. She also is c/o n/diarrhea/headaches/joint pain. She has watery diarrhea post eating daily for several days, also with nausea and dry heaves/vomiting with meals. No
CP, SOB with ambulating up stairs.
Labs Hgb 8.8 (7.2 to 10.0 after 1 uPRBC on 06/15), creat up to 1.6 (from 1.3 on 06/15), CO2 21, albumin 2.6, total protein 5.8, LFTs WNL, Gluc 77, HCG negative, UA 3+ blood, trace LE, 11-15 WBC, 3+ albumin
ED txt: Procardia XL 60 mg, IV Solu-Medrol 500 mg, IV Zofran, IV Morphine, Cards/Nephro saw in ED, Rheum curb-sided
Medical History
Past Medical History
Past Medical History: Reports Other (SLE with lupus nephritis)
Past Surgical History: Reports Other (exploratory laparotomy, multiple paracentesis, multiple thoracentesis, pleurodesis )
Social History
Tobacco: Non-smoker
Alcohol: None
Drug: None
Personal: Other (Fiancee)
Family History
Family History: CAD, Diabetes and Hypertension
Allergies / Home Medications
Allergies reflects when Allergies were last updated in [facility].
Home Medications with original date entered in [facility]
Allergy/Medication List:
Allergies
Allergy/AdvReac Type Severity Reaction Status Date / Time
KATERINA Inhibitors Allergy Swelling/an Verified 07/02/24 08:39
gioedema
Home Medications
hydroxychloroquine 200 mg tablet (Plaquenil) 200 mg PO DAILY #7 tabs 04/05/24
mycophenolate mofetil 500 mg tablet 1,000 mg PO BID 07/02/24
Procardia 60 mg XR daily
Review of Systems
-
A 12 point ROS was completed and negative except as noted: Yes
Physical Exam
Vital Signs
Vital Signs
Temp Pulse Resp BP Pulse Ox
99.3 F 88 23 165/114 100
07/02/24 08:39 07/02/24 11:30 07/02/24 11:30 07/02/24 11:00 07/02/24 11:30
Physical Exam
General: Appears Chronically Ill
HEENT: NormoCephalic, Anicteric, Moist mucous membranes and Other (mid-neck JVD)
Respiratory: Other (decreased BS b/l)
Cardiac: S1/S2 and Tachycardia
GI: Soft, Non Tender, Non Distended and Other (decreased bs)
Musculoskeletal: No Clubbing, No Cyanosis, Edema, Left Lower Extremity and Edema, Right Lower Extremity
Skin: Warm and Dry
Neuro: No Motor Deficits and Nonfocal/grossly intact
Psych: Calm
Laboratory Results
-
07/02/24 10:29
07/02/24 10:
Laboratory Results
Total Bilirubin 0.2 mg/dl (0.2-1.3) 07/02/24 10:29
AST 20 U/L (14-36) 07/02/24 10:29
ALT < 10 U/L (0-35) 07/02/24 10:
Alkaline Phosphatase 52 U/L (38-126) 07/02/24 10:29
Data Reviewed
-
CT Scan: Report Reviewed by me (CT a/p Moderate to large pericardial effusion. Moderate right pleural effusion which extends laterally and anteriorly at the right lower thorax, suggesting that it is not free flowing and may be loculated. Trace left
pleural effusion. Ascites limited by lack of IV and oral contrast)
Medical Tests (Nuc Med, Echo, EKG etc): Image Personally Visualized and interpreted (EKG NSR) and Report Reviewed by me (Echo)
Impression/Plan
-
IMPREChronic The patient is a 23 year old woman with PMH significant for Lupus nephritis (taking Plaquenil and CellCept), recently moved here from [place] and has her first new patient appointment with Rheumatology this week, scheduled to see Dr. Mak
Johan ([facility] physician) Jul 04, (admitted here 06/12 to 06/15 due to flare of SLE, EMILY, anion gap metabolic acidosis, HTN-she was started on Procardia XL 60 mg at that time -, and hyperkalemia), presents to the ED due to shortness of breath that
was worse this morning. In [place], she had multiple paracentesis for abdominal swelling/acites, last time was in January. She also is c/o n/diarrhea/headaches/joint pain. She has watery diarrhea post eating daily for several days, also with nausea and dry
heaves/vomiting with meals. No CP, SOB with ambulating up stairs. She has been on/off medication for years (diagnosed 19 yo in [place]) due to insurance issues.
Labs Hgb 8.8 (7.2 to 10.0 after 1 uPRBC on 06/15), creat up to 1.6 (from 1.3 on 06/15), CO2 21, albumin 2.6, total protein 5.8, LFTs WNL, Gluc 77, HCG negative, UA 3+ blood, trace LE, 11-15 WBC, 3+ albumin
ED txt: Procardia XL 60 mg, IV Solu-Medrol 500 mg, IV Zofran, IV Morphine, Cards/Nephro saw in ED, Rheum curb-sided
#SLE Flare/exacerbation, severe, with mod-severe pericardial effusion and Pleural effusion 2/2 SLE
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
-Moderate to large pericardial effusion. Moderate right pleural effusion which extends laterally and anteriorly at the right lower thorax, suggesting that it is not free flowing and may be loculated. Trace left pleural effusion.
-Discussed with Cards consult- stat Echo ordered, IVU admission for close monitoring, high risk for tamponade
-hold off on IV Lasix, consider IVF if BP decreases
-Pulm consulted
-Will need appropriate OP medication management - for now cont IV steroids daily x 3 days
-BEULAH >1:2560, homogeneous A, Anti-sm/VEGETABLE LOADER abs 116, SS-A/Ro 52 kDA Ab 208, SS-a Ro 60 kDa Ab 158, Anti-ds DNA IgG Ab 299, Anti-Cardiolipin IgG Ab 21, Complement C3/C4 less than 40/less than 8.0
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
-she was started on Prednisone taper x 12 days at recent hosp discharge on Jun 15, had biopsy one year ago
-Cr 04/05/24 was 1.4, currently 1.6 on admission
-cont Plaquenil and CellCept
-pulse dose steroids
-Solu-Medrol 500 mg IV daily x 3 days
-curbside Rheum - discussing transfer to [facility] or [facility] (Rheum will be at [facility])
#Joint Pain
-pain control with Tylenol, Oxy prn moderate pain, Morphine prn severe pain
#HTN
-Cont Procardial XL 60 daily
#Microcytic anemia, s/p Iron and blood infusion in May
-serial CBC-repeat in am, no active bleeding
#Moderate to large volume ascites. Third spacing.
-discuss paracentesis with GI/IR
#Moderate retroperitoneal and pelvic adenopathy, possibly related to SLE
-anterior external iliac adenopathy measuring 1.4 cm. On the left, medial external iliac adenopathy measuring 1.5 cm.
-Mild bilateral inguinal adenopathy. On the right, partially visualized lymph node measuring 2.1 cm. On the right, lymph nodes measuring up to 1.4 cm.
FULL
DVT- PCDs for now due to pericardial effusion
Patient is accepted to [facility] but NO BEDS available there, accepted under Dr. Salazar, on 24 hr admission for [facility].
80 minutes of critical care time is spent on the care of this patient
--- NOTE | 2024-07-02 12:29 | PHANOTE ---
med rec note- patient stated she stopped her nifedipine er 60mg daily because she ran out of refills but pharmacy has it billed on 06/15/24 for 30 days
--- NOTE | 2024-07-02 13:21 | CON.CAR ---
Consultation
Consultation Request
Date/Time Consultation Requested: 07/02/2024 at noon
Date/Time Consultation Performed: 07/02/2024 at 1330
Requesting Provider: EMILY Lopez
Performing Provider: Jaskaran Whiteside MD
Reason for Consultation: Pericardial effusion
Medical History
-
Chief Complaint: Pericardial effusion
History of Present Illness:
23-year-old woman with SLE and lupus nephritis who recently moved from [place]. Admitted 06/12 with upper extremity and right lower extremity pain and edema, creatinine was 1.6 and improved to 1.1. She was hyperkalemic with a potassium of 6.5 on
admission. She received IV Solu-Medrol, complement levels were undetectable. She was hypertensive. Nifedipine XL was started and she was discharged on 60 mg. She returns now with increasing edema with shortness of breath. There is a history of
prior thoracenteses and paracentesis. CT of the abdomen and pelvis showed a pericardial effusion and consultation was requested. She has some dyspnea on exertion but not severe, some pleuritic chest discomfort but again not severe. She is on
CellCept and hydroxychloroquine but at times is unable to get her medications.
Past Medical History
Past Medical History: HTN, Renal Failure (Recent creatinine 1.6, with biopsy-proven lupus nephritis) and Other (Lupus with nephritis and serositis, history of ascites and pleural effusion, status post paracenteses, status post thoracenteses)
Past Surgical History: Other (Exploratory laparotomy)
Social History
Tobacco: Non-Smoker
Alcohol: None
Drug: None
Personal: ( has special needs, FAS)
Living: With Family (Mother and [id number]-oex live in the area)
Employment: Disabled
Family History
Family History: Reviewed & Not Pertinent
Allergies / Home Medications
Allergy/AdvReac Type Severity Reaction Status Date / Time
KATERINA Inhibitors Allergy Swelling/an Verified 07/02/24 08:39
gioedema
�Medication �Instructions �Recorded �Confirmed �Type
hydroxychloroquine 200 mg tablet 200 mg PO DAILY #7 tabs 04/05/24 07/02/24 Rx
(Plaquenil)
mycophenolate mofetil 500 mg tablet 1,000 mg PO BID 07/02/24 07/02/24 History
Review of Systems
-
All other systems: Negative unless noted
Physical Exam
Vital Signs
Temp Pulse Resp BP Pulse Ox
37.4 C 88 23 164/124 100
07/02/24 08:39 07/02/24 11:30 07/02/24 11:30 07/02/24 12:06 07/02/24 12:30
Lab Results
07/02/24 10:29
07/02/24 10:29
Physical Exam
General: Other (Pleasant, mildly uncomfortable, slightly tachypneic)
HEENT: Normocephalic
Respiratory: Other (Diminished right base greater than left)
Cardiac: Other (No murmurs or rubs, JVD approximately 10, does not increase with inspiration)
GI: Other (Mildly tender, large midline scar)
Musculoskeletal: Edema (Mild to moderate)
Skin: Warm and Dry
Neuro: AO x 3
Psych: Calm
Impression / Plan
-
Impression:
Systemic lupus erythematosus
Lupus nephritis
Diffuse lupus serositis, pleura, peritoneum, pericardium
Pericardial effusion on CT with modest elevation of neck veins
Hypertension related to lupus nephritis
History of hyperkalemia
Plan:
Patient will need aggressive rheumatologic management, is being considered for transfer to [facility]
Will check echocardiogram
Suspect no urgent need for pericardiocentesis. There may be early hemodynamic compromise from pericardial effusion and effusive constrictive pericarditis is a consideration based on her longstanding history.
Await decision regarding transfer.
Data Reviewed
-
EKG: Tracing Personally Visualized and interpreted (ECG: Sinus rhythm, low voltage, nonspecific T wave changes)
CT Scan: Image Personally Visualized and interpreted (Moderate to large pericardial effusion, moderate right pleural effusion, trace pleural effusion, possible focal fatty infiltration of liver, moderate-large ascites, some pelvic adenopathy)
Labs: Labs Reviewed by me (Hemoglobin 8.8, MCV 76, white count 5.2, platelets 171, BUN and creatinine are 28 and 1.6, troponin and proBNP are pending,)
Old Records: Reviewed
[2024-07-02] MEDS: PROCARDIA XL (EXTENDED RELEASE) 60 MG PO (13:28)
[2024-07-02] MEDS: ZOFRAN 4 MG IV ×2 (13:29→19:40)
[2024-07-02] MEDS: MORPHINE SULFATE 2 MG IV (13:29)
[2024-07-02] MEDS: NSS 250 IV (13:34)
--- NOTE | 2024-07-02 13:41 | W.CON.NEPH ---
Consultation
-
Date/Time Consultation Requested: 07/02/24 1300
Date/Time Consultation Performed: 07/02/24 1340
Requesting Provider: Dr Aparicio
Performing Provider: Dr Diaz
Reason for Consultation: EMILY
Medical History
-
Chief Complaint: nausea
Past Medical History
SLE since 19yo
renal bx age 22-LN IV
multiple pleural effusion/pericardial effusion/ascites episodes
pleurodesis
Xlap, abdominal hematoma
HTN
angioedema with Lisinopril
Social History
Tobacco: Non-Smoker
Alcohol: None
Family History
no CKD/SLE
Allergies / Home Medications
Allergy/AdvReac Type Severity Reaction Status Date / Time
KATERINA Inhibitors Allergy Swelling/an Verified 07/02/24 08:39
gioedema
�Medication �Instructions �Recorded �Confirmed �Type
hydroxychloroquine 200 mg tablet 200 mg PO DAILY #7 tabs 04/05/24 07/02/24 Rx
(Plaquenil)
mycophenolate mofetil 500 mg tablet 1,000 mg PO BID 07/02/24 07/02/24 History
nifedipine ER 60mg po daily
Review of Systems
-
Abdominal distention, shortness of breath, lower extremity edema,, nausea
All other systems: Negative unless noted
Physical Exam
Vital Signs
Vital Signs
Temp Pulse Resp BP Pulse Ox
99.3 F 81 23 160/120 100
07/02/24 08:39 07/02/24 13:28 07/02/24 11:30 07/02/24 13:28 07/02/24 13:30
Lab Results
WBC 5.2 10^3/uL (4.8-10.8) 07/02/24 10:29
RBC 3.48 10^6/uL (4.20-5.40) L 07/02/24 10:29
Hgb 8.8 g/dL (12.0-16.0) L 07/02/24 10:
Hct 26.7 % (37.0-47.0) L 07/02/24 10:29
Plt Count 171 10^3/uL (130-400) 07/02/24 10:29
Sodium 141 mmol/L (135-145) 07/02/24 10:
Potassium 4.4 mmol/L (3.5-5.1) 07/02/24 10:
Chloride 112 mmol/L (98-107) H 07/02/24 10:
Carbon Dioxide 21 mmol/L (22-30) L 07/02/24 10:29
BUN 28 mg/dl (7-17) H 07/02/24 10:
Creatinine 1.6 mg/dL (0.6-1.0) H 07/02/24 10:
eGFR 46.76 07/02/24 10:29
Glucose 77 mg/dl (70-99) 07/02/24 10:29
Calcium 8.6 mg/dl (8.4-10.2) 07/02/24 10:29
Albumin 2.6 g/dl (3.5-5.0) L 07/02/24 10:29
Laboratory Tests
06/13/24 06/15/24
22:32 04:29
Hgb 10.0 L D
Protein/Creatinin Ratio 11.5
CT abdomen and pelvis on 07/02/2024 without IV contrast
IMPRESSION:
Moderate to large volume ascites. Third spacing.
Moderate to large pericardial effusion.
Moderate right pleural effusion which does not appear to be free-flowing, and may be loculated. Trace left pleural effusion.
Moderate retroperitoneal and pelvic adenopathy.
No bowel destruction. No obstructive uropathy.
Physical Exam
Patient is awake alert oriented and in no distress. Mood and affect were pleasant, insight and judgment were good. Pupils are equal round and reactive to light, extraocular movements are intact, sclera were anicteric. Hearing was normal, ears and
nose are intact. Oropharynx was clear. Neck was supple with trachea midline and no thyromegaly. Heart was regular rate and rhythm without rubs. Lower extremities with 1+ edema. Lungs were coarse with decreased breath sounds at the bases to
auscultation bilaterally and with normal excursion. Abdomen was soft, nontender, with normal active bowel sounds, and no hepatosplenomegaly. Skin was without rash and with normal turgor.
Data Reviewed
-
CT Scan: Report Reviewed by me
Medical Tests (Nuc Med, Echo etc): Image Personally Visualized and interpreted (EKG on 07/02/2024 by reading shows normal sinus rhythm)
Old Records: Reviewed (From May in [employer])
Assessment/Plan
-
Assessment
SLE exacerbation
EMILY
CKD3a
LN IV
nephrotic range proteinuria
pericardial effusion
pleural effusion,hx pleurodesis
ascites
metabolic acidosis
Plan
pulse steroids
continue nifedipine
no additional IVF for now
will eventually need lasix but this will not address ascites/effusions currently
follow BMP
[facility] treatment will require benlysta/MMF/prednisone
rheum evaluation. If no rheum available can consider transfer to an institution where rheum will see the patient in the hospital.
[2024-07-02 14:15] LABS: NT-proBNP 1650 pg/ml; Troponin I < 0.012 ng/ml
--- NOTE | 2024-07-02 15:46 | CON.PUL ---
Consultation
Consultation Request
Date/Time Consultation Requested: 07/02
Date/Time Consultation Performed: 07/02
Reason for Consultation: Shortness of breath
Medical History
-
History of Present Illness:
History obtained from the patient also reviewing hospital records. Patient is a 23-year-old female with history of lupus diagnosed at age 19 while in [place], history of recurrent pleural effusion, pericardial effusion, ascites in the past with
multiple drainages. She had chest tube twice at age 14 and 89 on the left side while in [place]. She was seeing a big data developer in [place]. She was recently hospitalized few weeks ago, discharged on 06/15/2024 for acute flare of lupus,
discharged on steroids. During that hospitalization he was noted to be hypertensive, discharged on Procardia XL. She then developed increased swelling in the legs and abdominal distention over the last few days along with lightheadedness,
tachycardia. She was scheduled to see rheumatology this week. She has had multiple initial visits with rheumatology over the past few months which she has missed due to flareups. She was seeing a beam racker and big data developer while in [place],
recently moved to [place] in February. Throughout this she has some mild fevers but denies any chills, sweats, falls, syncope, blood in urine or stool. She has some mild diarrhea which is new over the last few days. Her fianc� at home may also
have a mild upper respiratory infection. We are asked to help from a pulmonary standpoint
Patient has gained 25 pounds over the past few weeks
.
PMH: History of lupus diagnosed at age 19, with history of lupus nephritis, lupus pleuritis, recurrent pleural effusion/pericardial effusion, ascites. She states she has had it drained multiple times while in [place]. She had a chest tube at age
14 and at age 19 on the left side followed by pleurodesis (could not confirm). She has a history of exploratory laparotomy
Past Medical History
Past Medical History: None (See above)
Past Surgical History: None (See above)
Social History
Tobacco: Non-smoker
Alcohol: None
Drug: None
Personal: Other (Lives with her ángela� and ángela�'s family)
Living: With Family
Employment: Not Employed
Environmental Exposures: Born in [place], recently moved to [place] in February 2024
Family History
Family History: Other (1 sister healthy, parents healthy. Family history negative for lupus. There is a family history of diabetes, hypertension coronary disease)
Allergies / Home Medications
Allergies
Allergy/AdvReac Type Severity Reaction Status Date / Time
KATERINA Inhibitors Allergy Swelling/an Verified 07/02/24 08:39
gioedema
Home Medications
�Medication �Instructions �Recorded �Confirmed �Last Taken �Type
hydroxychloroquine 200 mg tablet 200 mg PO DAILY #7 tabs 04/05/24 07/02/24 07/02/24 Rx
(Plaquenil)
mycophenolate mofetil 500 mg tablet 1,000 mg PO BID 07/02/24 07/02/24 07/02/24 History
Review of Systems
-
All other systems: Negative unless noted
Vitals / Labs / Diagnostic Testing
Vital Signs
Temp Pulse Resp BP Pulse Ox
99.3 F 108 29 143/84 98
07/02/24 08:39 07/02/24 15:30 07/02/24 15:30 07/02/24 15:31 07/02/24 15:30
Lab Data
07/02/24 10:29
07/02/24 10:29
Diagnostic Testing:
Physical Exam
-
HEENT: Normocephalic
Cardiovascular: S1/S2, Regular Rhythm (Tachycardic), Murmur (n), Rub (n) and Peripheral Edema (n)
Respiratory: Wheeze (n), Rales (n), Rhonchi (n), Non-Labored Respirations and Other (Mild decreased right base)
GI: Soft, Distended and Non Tender
Neurology: Awake, Alert, Oriented and No Motor Deficits
Skin: Good Color and Other (No rash, no clubbing)
General: Comfortable
Assessment
-
23-year-old female with history of lupus diagnosed at age 19 complicated by recurrent serositis involving pleura, peritoneum and pericardium, history of chest tube x 2 on the left side age 14 and 89 followed by pleurodesis, recently hospitalized
for acute lupus flare discharged 06/15/2024 on steroids, antihypertensive therapy, now presents with increased swelling, abdominal distention, found to have acute lupus flare. We are asked to comment on pulmonary process 07/02/2024
Acute lupus flare
Acute serositis (pleural effusion/pericardial effusion/ascites)
Small right pleural effusion per my review
Tachycardia
Increased lower extremity swelling, abdominal distention
25 pound weight gain
Anemia
History of Lupus nephritis
Renal biopsy age 22
creatinine 1.6
History of angioedema to lisinopril
Retroperitoneal/pelvic adenopathy per imaging
Chronic immunosuppression
Mycophenolate/hydroxychloroquine
Plan/recommendations
At this time, patient appears to be comfortable. Tachycardia 1 10-1 20s noted but hemodynamically stable, on room air, in no distress.
Reviewed abdominal CT. Small pleural effusion per my review on the right mild pleural thickening and small pleural effusion on the left
Moderate pericardial effusion noted
Moving forward
Continue treatment for acute lupus exacerbation, serositis
Hydroxychloroquine continues as does mycophenolate 1 g twice a day
Pleural fluid is too small for thoracentesis
Patient is having some mild diarrhea over the last few days, this is new.
Follow-up
Patient also recently started on nifedipine after recent hospital stay
This will continue at discretion of primary service/cardiology
Await echocardiogram. Cardiology following closely
Methylprednisone 500 mg provided every 24 hours
Patient was due to see rheumatology later this week at [facility]
Eventual transfer to [facility] noted
Would be important for patient to initiate care with rheumatology
Based on history, has had multiple flareups in the past, despite being on chronic mycophenolate/hydroxychloroquine
With steroid dosing, would add GERD prophylaxis
DVT prophylaxis: Recommend mechanical pneumatic compression
Will follow
[2024-07-02 16:25] LABS: Magnesium 1.9 mg/dl (1.6-2.3)
[2024-07-02] MEDS: SOLU-MEDROL 108 MG IV (16:44)
[2024-07-02 16:56] LABS: TSH 1.14 uIU/ml (0.47-4.68)
[2024-07-02] MEDS: ROXICODONE 5 MG PO (17:13)
--- NOTE | 2024-07-02 17:27 | PTCARENOTE ---
Assumed care of pt upon tsf from ED. Pt arrives awake and alert, Ox3. VSs, CM shows ST 100's, POX 99% on RA. Solumedrol given STAT as per OCT. Pt c/o generalized body pain 06/08, Roxicodone given as per OCT. Pt potentially being tsf to [facility] bed available.
[2024-07-02] MEDS: NSS 500 IV (19:26)
[2024-07-02] MEDS: CELLCEPT 1000 MG PO (19:27)
[2024-07-02] MEDS: PROTONIX IV 40 MG IV (19:27)
[2024-07-02] MEDS: NSS (PRESERVATIVE FREE) 10 ML IV (19:27)
--- NOTE | 2024-07-02 21:31 | PTCARENOTE ---
assumed care of patient at the change of shift. AAOx3. complains of 'feeling weak' all over. denies any cp/sob. SR 80s-90s. bp stable. denies any lightheadedness/dizziness. generalized edema. +1, pitting. complains of feeling nauseous-Zofran given,
see mar.
patient being transferred to [place]. order placed. day shift RN called report to RN. updated patient.
--- NOTE | 2024-07-02 22:48 | W.DCSUMMARY ---
Discharge Summary
Discharge Data
Date of Admission: 07/02/24
Date of Discharge: 07/03/24
Total time spent discharging patient (in min): 35
-
Pending Results: No
Hospital Course
The patient is a 23 year old woman with PMH significant for Lupus nephritis (taking Plaquenil and CellCept), recently moved here from [place] and has her first new patient appointment with Rheumatology this week, scheduled to see Dr. Obdulio Prado
([place] physician) Jul 04, (admitted here 06/12 to 06/15 due to flare of SLE, EMILY, anion gap metabolic acidosis, HTN-she was started on Procardia XL 60 mg at that time -, and hyperkalemia), presents to the ED due to shortness of breath that was worse
this morning.
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
Moderate to large pericardial effusion, Moderate right pleural effusion which extends laterally and anteriorly at the right lower thorax, suggesting that it is not free flowing and may be loculated, Trace left pleural effusion.
Nephrology, Cardiology, and Pulmonary were consulted. Rheumatology was curb-sided and their recommendation was to transfer the patient to a care center with inpatient Rheumatology. This was discussed with ED physician, who spoke to [facility]
facility (as this is health system for her upcoming Rheum appointment), and they accepted the patient to Dr. Jasmine's service, bed pending.
In the ED, she had an episode of tachycardia up to the 160s following 2-V CXR after sitting upright, associated with near-syncope, and this improved to low 110s when lying flat. She received total of 750 mL fluids following this episode. She also
received Solu-Medrol 500 mg IV today with plan for daily x 3 days.
Recent labs sent out:
-BEULAH >1:2560, homogeneous A, Anti-sm/COMMODITY SUPERVISOR abs 116, SS-A/Ro 52 kDA Ab 208, SS-a Ro 60 kDa Ab 158, Anti-ds DNA IgG Ab 299, Anti-Cardiolipin IgG Ab 21, Complement C3/C4 less than 40/less than 8.0
#Joint Pain
-pain control with Tylenol, Oxy prn moderate pain, Morphine prn severe pain
#HTN
-Cont Procardial XL 60 daily
#Microcytic anemia, s/p Iron and blood infusion in May
-serial CBC-repeat in am, no active bleeding
#Moderate to large volume ascites. Third spacing.
-hold off on paracentesis at this time, pending transfer and stable
#Moderate retroperitoneal and pelvic adenopathy, possibly related to SLE
-anterior external iliac adenopathy measuring 1.4 cm. On the left, medial external iliac adenopathy measuring 1.5 cm.
-Mild bilateral inguinal adenopathy. On the right, partially visualized lymph node measuring 2.1 cm. On the right, lymph nodes measuring up to 1.4 cm.
She will be transferred for higher level of care/for Rheumatology inpatient consultation.
Discharge orders are written pending ambulance arrival. Pt is hemodynamically stable with stable respiratory status prior to transfer.
Ambulance arrived 1215am for transfer to [facility].
Discharge Plan
-
Patient Disposition: Acute Care Hospital
Discharge Orders:
Discharge Patient (As Directed); Ordered 07/02/24
Ordered By: Daphney Aparicio
Discharge Date and Time
Print Language: URDU
--- NOTE | 2024-07-03 00:27 | PTCARENOTE ---
patient transferred to [facility] via ambulance. telemetry pack removed. belongings sent. report given by day shift RN Bernadette. update provided to [facility] transport team.
== END 2024-07-03 00:29 | disposition short-term general hospital (02) | DRG 546 ==
LOC: IVU 13:34
PROVIDERS: Nurse Practitioner; ADMITTING PHYSICIAN Internal Medicine; CONSULT PHYSICIAN Internal Medicine Cardiovascular Disease; CONSULT PHYSICIAN Internal Medicine Critical Care Medicine; CONSULT PHYSICIAN Specialist; EMERGENCY PHYSICIAN Emergency Medicine
DX: M32.12 Pericarditis in systemic lupus erythematosus (principal); D84.821 Immunodeficiency due to drugs; E87.20 Acidosis, unspecified; N17.9 Acute kidney failure, unspecified; R18.8 Other ascites; M32.14 Glomerular disease in systemic lupus erythematosus; M32.13 Lung involvement in systemic lupus erythematosus; I15.1 Hypertension secondary to other renal disorders; N18.31 Chronic kidney disease, stage 3a; D50.9 Iron deficiency anemia, unspecified; R00.0 Tachycardia, unspecified; R59.0 Localized enlarged lymph nodes; Z79.624 Long term (current) use of inhibitors of nucleotide synthesis
CPT/HCPCS: 71046; 74176; 80053; 81003; 81015; 83735; 83880; 84443; 84484; 84703; 85025; 87086; 93005; 93306; 99285

== ENCOUNTER → 2024-08-09 14:30 | Outpatient (REF) | payer OTHER, SELFPAY | LOC: RCS 14:30 | PROVIDERS: ATTENDING PHYSICIAN Internal Medicine Interventional Cardiology; FAMILY PHYSICIAN Student in an Organized Health Care Education/Training Program | DX: R06.02 Shortness of breath (principal); I31.39 Other pericardial effusion (noninflammatory) | CPT/HCPCS: 93306 ==

== ENCOUNTER → 2024-09-18 15:49 | Outpatient (REF) | payer OTHER, SELFPAY | LOC: RCS 15:49 | PROVIDERS: ATTENDING PHYSICIAN Internal Medicine Interventional Cardiology; FAMILY PHYSICIAN Student in an Organized Health Care Education/Training Program | DX: I31.39 Other pericardial effusion (noninflammatory) (principal); I10 Essential (primary) hypertension | CPT/HCPCS: 93308; 93321; 93325 ==

== ENCOUNTER 2024-09-24 23:27 | Inpatient (IN) | payer OTHER, SELFPAY ==
[2024-09-24] VITALS (7 sets, daily range): BP systolic 121–132; BP diastolic 77–95
[2024-09-24 15:59] LABS: % Basophils 0.4 % (0-2); % Eosinophils 0.4 % (0-6); % Immature Granulocytes 0.4 % (0-0.5); % Lymphocytes 19.3 % (20.5-51.1); % Monocytes 8.5 % (1.7-9.3); Absolute Monocytes 0.4 10^3/uL (0.1-0.6); Absolute Neutrophils 3.6 10^3/uL (1.4-6.5); Hematocrit 25.5 % (37.0-47.0); Hemoglobin 8.2 g/dL (12.0-16.0); Mean Corp Hgb Conc. 32.2 g/dL (33.0-37.0); Mean Corpuscular Hgb 25.3 pg (27.0-31.0); Mean Corpuscular Volume 78.7 fL (81.0-99.0); Mean Platelet Volume 11.9 fL (7.4-10.4); Nucleated Red Blood Cells % 0 %; Platelet Count 372 10^3/uL (130-400); Red Blood Cell Count 3.24 10^6/uL (4.20-5.40); Red Cell Dist. Width 13.8 % (11.5-14.5)
[2024-09-24 16:16] LABS: HCG, Serum Qualitative Screen Negative
[2024-09-24 16:30] LABS: ALT (SGPT) < 10 U/L (0-35); AST (SGOT) 16 U/L (14-36); Albumin 3.4 g/dl (3.5-5.0); Alkaline Phosphatase 61 U/L (38-126); Blood Urea Nitrogen 27 mg/dl (7-17); Calcium 8.9 mg/dl (8.4-10.2); Carbon Dioxide 10 mmol/L (22-30); Chloride 106 mmol/L (98-107); Glucose 55 mg/dl (70-99); Lipase 56 U/L (23-300); Potassium 4.2 mmol/L (3.5-5.1); Sodium 136 mmol/L (135-145); Total Bilirubin 0.1 mg/dl (0.2-1.3); Total Protein 6.3 g/dl (6.3-8.2)
[2024-09-24 17:12] LABS: Glucose - Point of Care 64 mg/dl (70-99)
--- NOTE | 2024-09-24 17:31 | ED.GENMED ---
History of Present Illness
<Sammi Hurt NP - Last Filed: 09/24/24 23:39>
General
Chief Complaint: Abdominal Symptoms
Source: patient
Exam Limitations: none
Time Seen by Provider: 09/24/24 17:06
Nursing documentation reviewed up to this point in time: agreed with
History of Present Illness
History of Present Illness:
Patient to ED with complaint of diffuse abd. pain, n/v, weight lose, joint pain x 1 week. Denies fever/chills. history of lupus nephritis stage I neuromyelitis optica polyarthritis anemia. Has not seen rheumatolgy since moving here from [facility] last
summer. Reports following with nephrology 3 mos ago and has an appt scheduled for 09/26. 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 States she has lost >30 lbs over the past week due to vomiting. Reports 4-5 episodes/day. Last episode was [employer].
Brought self to ED. BS on arrival 50. Given OJ with sugar in triage. BS bedside 60. Dextrose IV ordered.
Past History
<Sammi Hurt FELTMAKER - Last Filed: 09/24/24 23:39>
Past History
ED Past Medical History: Other (Lupus/lupus nephritis/pleural effusions/ascites, polyarthitis, neuromyelitis optica, anemia)
ED Past Surgical History: Other (Exploratory laparotomy, lymph node bx right axilla)
Social History
Tobacco: Non-smoker
Alcohol: None
Drug: None
Personal: Single
Living: other (Lives with boyfriend and his parents)
Review of Systems
<Sammi Hurt NP - Last Filed: 09/24/24 23:39>
Review of Systems
Allergies reviewed?: Yes
All Other Systems: ROS reviewed and negative except as documented in HPI and ROS
Constitutional: Reports fatigue
EENT: Reports no symptoms
Respiratory: Reports no symptoms
Cardiac: Reports no symptoms
ABD/GI: Reports abdominal pain (diffuse), nausea and vomiting (4-5 episides/day)
: Reports no symptoms
Musculoskeletal: Reports joint pain (generalized joint pain)
Skin: Reports no symptoms
Neurological: Reports no symptoms
Psychiatric: Reports no symptoms
Phy Exam
<Sammi Hurt FELTMAKER - Last Filed: 09/24/24 23:39>
General Physical Exam
General Presentation: mild distress
General age: appears stated age
General Skin: warm and dry
General Habitus: normal
General Mental: alert
Cardiovascular Exam
Cardiovascular Exam: regular rate/rhythm and no edema
Pulmonary Exam
Pulmonary Exam: no respiratory distress and chest non tender
Gastrointestinal Exam
Gastrointestinal Exam: normal bowel sounds, soft, no organomegaly, no pulsatile mass, non distended and no cva tenderness
Palpation: generalized: Moderate tenderness
Musculoskeletal Exam
Musculoskeletal Exam: full ROM and neuro vasc intact
Skin Exam
Skin Exam: normal color and warm/dry
Psychiatric Exam
Psychiatric Exam: normal mood/affect
Course
<Sammi Hurt FELTMAKER - Last Filed: 09/24/24 23:39>
Orders/Labs/Results
Orders:
Orders
09/24/24 15:45
Test Result ONCE
09/24/24 15:48
Complete Blood Count/With Diff Urgent
Comprehensive Metabolic Panel Urgent
HCG, Serum Qualitative Screen Urgent
Comment: Notify provider if positive test present
Lipase Urgent
09/24/24 17:26
0.9% Sodium Chloride 1000 ml [Nss] 1,000 ml IV BOLUS
Ondansetron Injectable [Zofran] 4 mg IV NOW STA
09/24/24 17:28
Dextrose 50%-Water [Dextrose 50% Syringe] 12.5 grams IV NOW STA
09/24/24 17:29
IV Insert/Care/Rem.- Treatment PRN
09/24/24 17:30
CT Abd/pel Without Iv Or Oral Urgent
Comment:
Reason For Exam: diffuse abd. pain, EMILY, vomiting
09/24/24 17:31
Norovirus by PCR Urgent
DANAY Source: Feces/Stool
Specimen Description:
Date Specimen was Collected: 09/24/24
Time Specimen was Collected: 21:39
09/24/24 19:36
Morphine Sulfate 2 mg IV NOW STA
09/24/24 19:40
Bedside Glucose- Treatment ONCE
09/24/24 20:00
Dextrose 5%/0.45%Sodchl 1000ML [D5/0.45%NaCl] 1,000 ml IV 125 mls/hr
09/24/24 21:15
HYDROmorphone [Dilaudid] 0.5 mg IV NOW STA
09/24/24 21:35
Basic Metabolic Panel Urgent
09/24/24 22:12
NEPHROLOGY CONSULT Urgent
Consulting Provider: Thaddeus Diaz
Was physician already notified: Yes
09/24/24 23:03
Admit/Transfer Patient As Directed
Co-Sign Provider:
Level of Care: Inpatient admission
Assign to:: Telemetry
Physician / Group: Yoan Denney
Diagnosis: metabolic acidosis, hypoglycemia, EMILY, anemia
Reason for Telemetry: Arrhythmia
Date to Stop Telemetry: 09/27/24
Time to Stop Telemetry: 11:00
Reason for Hospitalization: metabolic acidosis, hypoglycemia, EMILY, anemia
Expected length of stay greater than two midnights?: Yes
ELOS- Estimated Length of Stay in days: 3
I certify the patient meets the requirements for IP care: Yes
09/24/24 23:04
PRN Pain Medication Management As Directed
May give lesser potent ordered pain med per pt: Yes
preference::
Protocol:: Medication orders for pain may be administered in a
manner that supports deferring to patient preference
when the pt is:
- Requesting an ordered lesser potent pain medication.
Least to most potent pain medications are defined
as: acetaminophen < NSAID < tramadol < opioids
(morphine, oxycodone, hydromorphone).
- Requesting a lesser dose of the same medication IF
ORDERED.
- Requesting a less intrusive route of administration
if both routes are prescribed by the provider (PO <
IV).
09/24/24 23:08
Code Status As Directed
Resuscitation Status: Full Code
09/24/24 23:20
Urinalysis Reflex To Culture Urgent
Date Specimen was Collected: 09/24/24
Time Specimen was Collected: 22:32
09/27/24 11:00
DC Protocol for Telemetry ONCE
Abnormal Lab Results
09/24/24 09/24/24 09/24/24
15:48 17:09 19:40
RBC 3.24 L 10^6/uL
(4.20-5.40)
Hgb 8.2 L g/dL
(12.0-16.0)
Hct 25.5 L %
(37.0-47.0)
MCV 78.7 L fL
(81.0-99.0)
MCH 25.3 L pg
(27.0-31.0)
MCHC 32.2 L g/dL
(33.0-37.0)
MPV 11.9 H fL
(7.4-10.4)
Absolute Lymphs (auto) 1.0 L 10^3/uL
(1.2-3.4)
Lymphocytes % 19.3 L %
(20.5-51.1)
Sodium
Chloride
Carbon Dioxide 10 L* mmol/L
(22-30)
BUN 27 H mg/dl
(7-17)
Creatinine 2.7 H mg/dL
(0.6-1.0)
Glucose 55 L* mg/dl
(70-99)
Calcium
Total Bilirubin 0.1 L mg/dl
(0.2-1.3)
Albumin 3.4 L g/dl
(3.5-5.0)
POC Glucose 64 L mg/dl 60 L mg/dl
(70-99) (70-99)
09/24/24
21:35
RBC
Hgb
Hct
MCV
MCH
MCHC
MPV
Absolute Lymphs (auto)
Lymphocytes %
Sodium 133 L mmol/L
(135-145)
Chloride 109 H mmol/L
(98-107)
Carbon Dioxide 13 L* mmol/L
(22-30)
BUN 26 H mg/dl
(7-17)
Creatinine 2.3 H mg/dL
(0.6-1.0)
Glucose
Calcium 8.0 L mg/dl
(8.4-10.2)
Total Bilirubin
Albumin
POC Glucose
09/24/24 15:48
09/24/24 21:35
Vital Signs
Initial and Last Documented VS:
Initial Vital Signs
Temp Pulse Resp BP Pulse Ox
98.3 F 103 16 132/93 100
09/24/24 15:41 09/24/24 15:41 09/24/24 15:41 09/24/24 15:41 09/24/24 15:41
Last Documented Vital Signs
Temp Pulse Resp BP Pulse Ox
98.3 F 81 18 124/83 100
09/24/24 15:41 09/24/24 23:00 09/24/24 23:00 09/24/24 23:00 09/24/24 22:15
<Alber Alejandro, DO - Last Filed: 09/24/24 21:53>
Orders/Labs/Results
Orders:
Orders
09/24/24 15:45
Test Result ONCE
09/24/24 15:48
Complete Blood Count/With Diff Urgent
Comprehensive Metabolic Panel Urgent
HCG, Serum Qualitative Screen Urgent
Comment: Notify provider if positive test present
Lipase Urgent
09/24/24 17:26
0.9% Sodium Chloride 1000 ml [Nss] 1,000 ml IV BOLUS
Ondansetron Injectable [Zofran] 4 mg IV NOW STA
09/24/24 17:28
Dextrose 50%-Water [Dextrose 50% Syringe] 12.5 grams IV NOW STA
09/24/24 17:29
IV Insert/Care/Rem.- Treatment PRN
09/24/24 17:30
CT Abd/pel Without Iv Or Oral Urgent
Comment:
Reason For Exam: diffuse abd. pain, EMILY, vomiting
09/24/24 17:31
Norovirus by PCR Urgent
DANAY Source: Feces/Stool
Specimen Description:
Date Specimen was Collected: 09/24/24
Time Specimen was Collected: 21:39
09/24/24 19:36
Morphine Sulfate 2 mg IV NOW STA
09/24/24 19:40
Bedside Glucose- Treatment ONCE
09/24/24 20:00
Dextrose 5%/0.45%Sodchl 1000ML [D5/0.45%NaCl] 1,000 ml IV 125 mls/hr
09/24/24 21:15
HYDROmorphone [Dilaudid] 0.5 mg IV NOW STA
09/24/24 21:35
Basic Metabolic Panel Urgent
09/24/24 22:12
NEPHROLOGY CONSULT Urgent
Consulting Provider: Thaddeus Diaz
Was physician already notified: Yes
09/24/24 23:03
Admit/Transfer Patient As Directed
Co-Sign Provider:
Level of Care: Inpatient admission
Assign to:: Telemetry
Physician / Group: Yoan Denney
Diagnosis: metabolic acidosis, hypoglycemia, EMILY, anemia
Reason for Telemetry: Arrhythmia
Date to Stop Telemetry: 09/27/24
Time to Stop Telemetry: 11:00
Reason for Hospitalization: metabolic acidosis, hypoglycemia, EMILY, anemia
Expected length of stay greater than two midnights?: Yes
ELOS- Estimated Length of Stay in days: 3
I certify the patient meets the requirements for IP care: Yes
09/24/24 23:04
PRN Pain Medication Management As Directed
May give lesser potent ordered pain med per pt: Yes
preference::
Protocol:: Medication orders for pain may be administered in a
manner that supports deferring to patient preference
when the pt is:
- Requesting an ordered lesser potent pain medication.
Least to most potent pain medications are defined
as: acetaminophen < NSAID < tramadol < opioids
(morphine, oxycodone, hydromorphone).
- Requesting a lesser dose of the same medication IF
ORDERED.
- Requesting a less intrusive route of administration
if both routes are prescribed by the provider (PO <
IV).
09/24/24 23:08
Code Status As Directed
Resuscitation Status: Full Code
09/24/24 23:20
Urinalysis Reflex To Culture Urgent
Date Specimen was Collected: 09/24/24
Time Specimen was Collected: 22:32
09/27/24 11:00
DC Protocol for Telemetry ONCE
Abnormal Lab Results
09/24/24 09/24/24 09/24/24
15:48 17:09 19:40
RBC 3.24 L 10^6/uL
(4.20-5.40)
Hgb 8.2 L g/dL
(12.0-16.0)
Hct 25.5 L %
(37.0-47.0)
MCV 78.7 L fL
(81.0-99.0)
MCH 25.3 L pg
(27.0-31.0)
MCHC 32.2 L g/dL
(33.0-37.0)
MPV 11.9 H fL
(7.4-10.4)
Absolute Lymphs (auto) 1.0 L 10^3/uL
(1.2-3.4)
Lymphocytes % 19.3 L %
(20.5-51.1)
Sodium
Chloride
Carbon Dioxide 10 L* mmol/L
(22-30)
BUN 27 H mg/dl
(7-17)
Creatinine 2.7 H mg/dL
(0.6-1.0)
Glucose 55 L* mg/dl
(70-99)
Calcium
Total Bilirubin 0.1 L mg/dl
(0.2-1.3)
Albumin 3.4 L g/dl
(3.5-5.0)
POC Glucose 64 L mg/dl 60 L mg/dl
(70-99) (70-99)
09/24/24
21:35
RBC
Hgb
Hct
MCV
MCH
MCHC
MPV
Absolute Lymphs (auto)
Lymphocytes %
Sodium 133 L mmol/L
(135-145)
Chloride 109 H mmol/L
(98-107)
Carbon Dioxide 13 L* mmol/L
(22-30)
BUN 26 H mg/dl
(7-17)
Creatinine 2.3 H mg/dL
(0.6-1.0)
Glucose
Calcium 8.0 L mg/dl
(8.4-10.2)
Total Bilirubin
Albumin
POC Glucose
09/24/24 15:48
09/24/24 21:35
Vital Signs
Initial and Last Documented VS:
Initial Vital Signs
Temp Pulse Resp BP Pulse Ox
98.3 F 103 16 132/93 100
09/24/24 15:41 09/24/24 15:41 09/24/24 15:41 09/24/24 15:41 09/24/24 15:41
Last Documented Vital Signs
Temp Pulse Resp BP Pulse Ox
98.3 F 81 18 124/83 100
09/24/24 15:41 09/24/24 23:00 09/24/24 23:00 09/24/24 23:00 09/24/24 22:15
<Sammi Hurt FELTMAKER - Last Filed: 09/24/24 23:39>
*Radiology
Radiology exam reviewed: radiology read reviewed
*Critical Care Note
Total Time (30-74mins, 75-104mins- exclusive of procedures): Not Applicable
<Sammi Hurt FELTMAKER - Last Filed: 09/24/24 23:39>
Update Note
Update Note:
Patient to ED wtih complaint of joint pain, aabdominal pain, n/v x 1 week. She reports rapid weight loss. Unable to eat or drink. Labs reviewed. BS 50 on arrival. Metabolic acidosis. 1L NSS ifnfused along with Iv dextrose . Now receiving D5/
.45NSS. Last bedside glucose 86. Creat 2.7, new. Hgb8.2 hct 22.5, chronic anemia. CT abd. reviewed, compared to prior CT. Still with ascities. Improvement in pleural effusion and anasarca. Case discussed grayson Alejandro who also evaluated this
patient. Will admit to hospitalists service for metabolic acidosis, EMILY, chronic anemia
ED Attending Note
<Sammi Hurt NP - Last Filed: 09/24/24 23:39>
-
Portions of this chart may have been created with voice recognition software.� Occasional wrong word or��sound alike� substitutions may have occurred due to the inherent limitations of voice recognition software.
<Alber Alejandro DO - Last Filed: 09/24/24 21:53>
ED Attending Note
Patient seen and examined by attending physician: Yes
I performed the substantive portion of visit, reviewed & personally made and approve the management plan that is documented in note by myself or MIGUELANGEL.: Yes
ED Attending Note:
24-year-old female presents with symptoms as above. Notable for vomiting, joint aches and diarrhea. Patient denies fevers. No real abdominal pain. Exam: No lower extremity edema, very mild diffuse abdominal tenderness. Assessment plan: Again
with pericardial effusion and ascites. Worsening renal function and has a metabolic acidosis. Also found be hypoglycemic. Sugar replaced and now much better. Suspect strongly that her third spacing is related to nephrotic syndrome as she has had
proteinuria in the past. Case discussed with nephrology. May benefit from steroids. Admit.
Discharge Plan
Departure
Patient Disposition: Admit
Date of Disposition: 09/24/24
Time of Disposition: 22:05
Presentation/result/management discussed w/ accepting MD/DO: Hospitalist
Patient with high blood pressure during this ER visit?: No
Condition: Fair
Discharge Problem:
Metabolic acidosis, EMILY (acute kidney injury), Hypoglycemia, Anemia, Lupus nephritis
Interventions
Interventions:
*Risk Screen - Suicide Last Done: 09/24/24 15:41
*General Assessment Last Done: 09/24/24 15:41
*Neglect/Abuse Screening Last Done: 09/24/24 15:41
*ED COVID-19 Vaccine History Last Done: 09/24/24 15:41
LT-Rvvxxw-Jchnsfyfec Assessment Last Done: 09/24/24 17:29
[2024-09-24] MEDS: NSS 1000 IV (17:33)
[2024-09-24] MEDS: DEXTROSE 50% SYRINGE 12.5 GRAMS IV (17:49)
[2024-09-24] MEDS: ZOFRAN 4 MG IV (17:50)
[2024-09-24 19:44] LABS: Glucose - Point of Care 60 mg/dl (70-99)
[2024-09-24] MEDS: MORPHINE SULFATE 2 MG IV (19:45)
[2024-09-24] MEDS: D5/0.45%NACL 1000 IV (20:03)
[2024-09-24 21:05] LABS: Glucose - Point of Care 84 mg/dl (70-99)
[2024-09-24] MEDS: DILAUDID 0.5 MG IV (21:31)
[2024-09-24 22:05] LABS: Blood Urea Nitrogen 26 mg/dl (7-17); Carbon Dioxide 13 mmol/L (22-30); Chloride 109 mmol/L (98-107); Glucose 77 mg/dl (70-99); Potassium 4.3 mmol/L (3.5-5.1); Sodium 133 mmol/L (135-145); eGFR 30.07
--- NOTE | 2024-09-24 22:14 | HPS.HSE ---
Addendum entered and electronically signed by Yoan Denney DO 09/24/24 23:40:
Patient is a 24y F with PMH significant for severe lupus with nephritis, pericarditis and peritonitis / ascites who presents to ED complaining of N/V/D. Patient states that she has had these symptoms for about one week. She has been unable to
tolerate any significant PO intake as a result. She states that she has lost about 30 lbs in the past week. Patient states that she has been compliant with her current med regimen. She was last admitted here 06/2024 and was transferred to
[place] at that time for further care. Patient states that she underwent pericardiocentesis at [place] with improvement in her symptoms. She did not have paracentesis at that time or since.
Patient note that she has yet to establish care with a local [employer] for ongoing management of her severe lupus and associated complications.
Ass:
Intractable N/V/D - ? gastroenteritis, lupus peritonitis, etc.
EMILY on CKD III - IV
Non-Gapped Metabolic Acidosis
Chronic Lupus Nephritis
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
Anemia of CKD / Chronic Disease
Plan:
Admit for further evaluation and treatment.
Supportive care with antiemetics, etc.
IVF support with supplemental bicarb for now.
Nephrology consulted for additional recommendations.
May benefit from systemic steroid dosing but will hold for now pending Nephrology evaluation.
Continue usual outpatient CellCept, Plaquenil, etc.
Hold Bactrim for now given EMILY.
Original Note:
Family Physician
-
Family Physician: Georgia Thornton MD
Chief Complaint
-
Abdominal symptoms
History of Present Illness
Patient is a 24-year-old female with past medical history significant for Lupus/lupus nephritis, pleural effusions, ascites, polyarthritis, neuromyelitis optica and anemia who presented to [facility] ED for evaluation of diffuse abdominal pain,
nausea and vomiting, diarrhea, weight loss, and joint pain x1 week. Patient moved to the area last summer and has not seen rheumatology since moving here, she states still trying to get appointment with someone. She reports seeing nephrology 3
months ago and a schedule appointment for 09/26/2023, does not recall doctor name or where located. Patient reports vomiting 4-5x a day and has lost 28 pounds this week. She reports low grade fever 1x. Patient denies any cough, shortness of breath,
chest pain, constipation or urinary symptoms.
Medical History
Past Medical History
Past Medical History: Reports Other
Additional Past Medical History:
Lupus/lupus nephritis
pleural effusions
ascites
polyarthritis
neuromyelitis optica
anemia
Past Surgical History: Reports Other
Additional Past Surgical History:
Exploratory laparotomy
lymph node bx right axilla
Social History
Tobacco: Non-smoker
Alcohol: None
Drug: None
Personal: Partner
Living: With Family
Employment: Employed
Family History
Family History: Not pertinent
Allergies / Home Medications
Allergies reflects when Allergies were last updated in [facility].
Home Medications with original date entered in [facility]
Allergy/Medication List:
Allergies
Allergy/AdvReac Type Severity Reaction Status Date / Time
KATERINA Inhibitors Allergy Swelling/an Verified 09/24/24 15:44
gioedema
Home Medications
mycophenolate mofetil 500 mg tablet 1,500 mg PO BID 07/02/24
amlodipine 5 mg tablet 5 mg PO DAILY 09/24/24
colchicine 0.6 mg tablet 0.6 mg PO DAILY 09/24/24
ergocalciferol (vitamin D2) 1,250 mcg (50,000 unit) capsule 1,250 mcg PO TH 09/24/24
hydroxychloroquine 200 mg tablet (Plaquenil) 200 mg PO BID 09/24/24
pantoprazole 40 mg tablet,delayed release 40 mg PO DAILY 09/24/24
sulfamethoxazole 800 mg-trimethoprim 160 mg tablet (Bactrim DS) 1 tab PO DAILY 09/24/24
Review of Systems
-
History Source: Patient
Constitutional: Reports Weight Loss
EENT: Reports No Symptoms
Respiratory: Reports No Symptoms
Cardiac: Reports No Symptoms
Abdomen/GI: Reports Abdominal Pain, Nausea, Vomiting and Diarrhea
: Reports No Symptoms
Musculoskeletal: Reports No Symptoms
Skin: Reports No Symptoms
Neurological: Reports No Symptoms
Endocrine: Reports No Symptoms
Hematologic/Lymphatic: Reports No Symptoms
Psych: Reports No Symptoms
Physical Exam
Vital Signs
Vital Signs
Temp Pulse Resp BP Pulse Ox
98.3 F 85 16 121/77 100
09/24/24 15:41 09/24/24 22:07 09/24/24 22:07 09/24/24 22:07 09/24/24 22:07
Physical Exam
General: Well Developed, No Apparent Distress and Poor Appetite
HEENT: NormoCephalic, Moist mucous membranes, Atraumatic, [place] Conjunctivae, Nose Appears Normal and Ears Appear Normal
Respiratory: Clear, Non Labored Respirations and Decreased Breath Sounds (diminished on lower right lobe)
Cardiac: S1/S2 and Regular Rhythm; No Murmur, Rub or Gallop
GI: Soft, Non Tender, Non Distended and Normal Bowel Sounds; No Organomegaly
Rectal: Deferred by Provider
Genito-urinary: Deferred by me
Musculoskeletal: No Clubbing, No Cyanosis and No Edema
Skin: Warm and IV/Catheter Site; No Rash
Neuro: Awake, Alert, AO x 3 and Nonfocal/grossly intact
Psych: Calm and Intact Judgment/Insight
Laboratory Results
-
09/24/24 15:48
09/24/24 21:35
Laboratory Results
Total Bilirubin 0.1 mg/dl (0.2-1.3) L 09/24/24 15:48
AST 16 U/L (14-36) 09/24/24 15:48
ALT < 10 U/L (0-35) 09/24/24 15:48
Alkaline Phosphatase 61 U/L (38-126) 09/24/24 15:48
Lipase 56 U/L (23-300) 09/24/24 15:48
Data Reviewed
-
CT Scan: Report Reviewed by me (Abd: Small moderate pericardial effusion, decreased in size since CT examination of July 02, 2024. Significant interval improvement in anasarca. Large amount of ascites is present in all 4 quadrants. No evidence
for bowel obstruction or free intraperitoneal air. Densities in the periaortic re)
Lab Data: Labs Reviewed by me (hgb 8.2/hct 25.5, Na 133, HCO3 13, Bun 26, Creat 2.3)
Impression/Plan
-
IMPRESSION/PLAN:
#Lupus/lupus nephritis
#metabolic acidosis
HCO3 13, glucose [address]: Small moderate pericardial effusion, decreased in size since CT examination of July 02, 2024.
Significant interval improvement in anasarca.
Large amount of ascites is present in all 4 quadrants.
No evidence for bowel obstruction or free intraperitoneal air.
Densities in the periaortic region, which could represent prominent vessels and/or top normal lymph nodes, similar appearance to prior examination. Evaluation limited by lack of intravenous contrast.
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 No evidence for femoral head collapse.
- Admit to
- consult nephrology
- IVF with bicarb
- monitor BMP
#EMILY
BUN 26, Creat 2.3
- consult nephrology
- monitor BMP
#anemia
Hgb 8.2, Hct 25.5
- monitor h/h
#pleural effusions
#ascites
Abd CT: Small moderate pericardial effusion, decreased in size since CT examination of July 02, 2024.
Significant interval improvement in anasarca.
Large amount of ascites is present in all 4 quadrants.
No evidence for bowel obstruction or free intraperitoneal air.
Densities in the periaortic region, which could represent prominent vessels and/or top normal lymph nodes, similar appearance to prior examination. Evaluation limited by lack of intravenous contrast.
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 No evidence for femoral head collapse.
#polyarthritis
#neuromyelitis optica
Code status: Full code
DVT Prophylaxis: heparin sq
[2024-09-24 23:25] LABS: Urine Albumin 1+ (Neg - Trace); Urine Bilirubin Negative (Negative); Urine Character Slightly Cloudy (Clear); Urine Color Yellow; Urine Glucose Negative (Negative); Urine Ketone Negative (Negative); Urine Leukocyte Negative (Negative); Urine Nitrite Positive (Negative); Urine Occult Blood 2+ (Negative); Urine Urobilinogen Negative (Neg - 1+)
--- NOTE | 2024-09-24 23:55 | PTCARENOTE ---
Pt received from ED at 2355. Pt pleasant, AAOX3, VSS, and able to ambulate into room with assistance. Pt currently complains of nausea and lower back pain. Pt receptive to room and call ramirez. Pt bed in lowest position and call ramirez within reach. Pt
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 Will continue with current plan of care.
[2024-09-25] VITALS (10 sets, daily range): BP systolic 110–145; BP diastolic 61–91
[2024-09-25 00:09] LABS: Urine Squamous Cell >30 /LPF (Few)
[2024-09-25 00:10] LABS: Urine Amorphous Seen; Urine Bacteria Many (Negative); Urine Urothelial Cell >30 /LPF (FEW)
[2024-09-25 00:13] LABS: Urine White Cell >100 /HPF (0-5)
[2024-09-25 00:15] LABS: Urine Mucus Moderate
[2024-09-25] MEDS: SODIUM BICARBONATE 1075 MEQ IV ×2 (01:10→10:14)
[2024-09-25] MEDS: DILAUDID 0.5 MG IV ×6 (01:23→23:31)
[2024-09-25] MEDS: ZOFRAN 4 MG IV ×3 (02:03→19:31)
[2024-09-25] MEDS: NORVASC 5 MG PO (07:59)
[2024-09-25] MEDS: PLAQUENIL 200 MG PO ×2 (07:59→19:20)
[2024-09-25] MEDS: COLCHICINE 0.6 MG PO (08:00)
[2024-09-25] MEDS: CELLCEPT 1500 MG PO ×2 (08:00→19:20)
[2024-09-25 08:41] LABS: Hematocrit 20.4 % (37.0-47.0); Hemoglobin 6.7 g/dL (12.0-16.0); Mean Corp Hgb Conc. 32.8 g/dL (33.0-37.0); Mean Corpuscular Hgb 25.4 pg (27.0-31.0); Mean Corpuscular Volume 77.3 fL (81.0-99.0); Mean Platelet Volume 11.6 fL (7.4-10.4); Platelet Count 271 10^3/uL (130-400); Red Blood Cell Count 2.64 10^6/uL (4.20-5.40); Red Cell Dist. Width 13.6 % (11.5-14.5); White Blood Cell Count 3.9 10^3/uL (4.8-10.8)
[2024-09-25 08:59] LABS: Blood Urea Nitrogen 22 mg/dl (7-17); Calcium 8.3 mg/dl (8.4-10.2); Carbon Dioxide 17 mmol/L (22-30); Chloride 108 mmol/L (98-107); Estimated Creatinine Clearance 34 ml/min; Glucose 85 mg/dl (70-99); Potassium 3.9 mmol/L (3.5-5.1); Sodium 133 mmol/L (135-145); eGFR 35.56
[2024-09-25 09:44] LABS: Hematocrit 20.3 % (37.0-47.0); Hemoglobin 6.7 g/dL (12.0-16.0)
--- NOTE | 2024-09-25 09:50 | W.CON.NEPH ---
Consultation
-
Date/Time Consultation Requested: 09/24/242211
Date/Time Consultation Performed: 09/25/24 0930
Requesting Provider: Yoan Jacome
Performing Provider: malick Maravilla
Reason for Consultation: Emily with CKD
Medical History
-
Chief Complaint: Decreased po intake, n/v/d
History of Present Illness:
24-year-old female with past medical history significant for Lupus/lupus nephritis since age of 19, pleural effusions, ascites, polyarthritis, neuromyelitis optica and anemia who presented to [facility] for evaluation of diffuse abdominal pain,
nausea and vomiting, diarrhea, weight loss, and joint pain x1 week. She was admitted to in Jun with Lupus flare, mod to severe pericardial effusion and pleural effusion and transferred to intpt Rheumatology at [facility]. She reports her cr was
below 2 at discharge. Patient moved to the area last summer from [place] and has not seen rheumatology in out pt setting since moving here, she states still trying to get appointment with someone. She reports seeing nephrology 3 months ago and a
schedule appointment for 09/26/2023, does not recall doctor name or where located. Patient reports vomiting 4-5x a day and has lost 28 pounds this week. She reports low grade fever 1x. Patient denies any cough, shortness of breath, chest pain,
constipation or urinary symptoms or change in urine volume. Reports no sick contacts.
She reports taking HCQ and cellcept and does not know who is prescribing her meds. Her kidney biopsy reportedly had class IV lupus nephritis at age of 22.
Her cr at admit was at 2.7 and improving to 2 today with IVF. No dizziness, or cp. no dysuria.
Past Medical History
Lupus/lupus nephritis
polyarthritis
neuromyelitis optica
anemia
renal bx age 22-LN IV
multiple pleural effusion/pericardial effusion/ascites episodes
pleurodesis
Xlap, abdominal hematoma
HTN
Past Surgical History: Other (Exploratory laparotomy lymph node bx right axilla)
Social History
Born in [place], recently moved to [place] in February 2024
Tobacco: Non-Smoker
Alcohol: None
Drug: None
Living: Other (has special need fianc�e)
Family History
no lupus, positive for DM, HTN, CAD
Allergies / Home Medications
Allergy/AdvReac Type Severity Reaction Status Date / Time
KATERINA Inhibitors Allergy Swelling/an Verified 09/24/24 15:44
gioedema
�Medication �Instructions �Recorded �Confirmed �Type
mycophenolate mofetil 500 mg tablet 1,500 mg PO BID 07/02/24 09/24/24 History
amlodipine 5 mg tablet 5 mg PO DAILY Blood Pressure 09/24/24 09/24/24 History
colchicine 0.6 mg tablet 0.6 mg PO DAILY Gout 09/24/24 09/24/24 History
ergocalciferol (vitamin D2) 1,250 1,250 mcg PO TH Supplement 09/24/24 09/24/24 History
mcg (50,000 unit) capsule
hydroxychloroquine 200 mg tablet 200 mg PO BID 09/24/24 09/24/24 History
(Plaquenil)
pantoprazole 40 mg tablet,delayed 40 mg PO DAILY Gastrointestinal 09/24/24 09/24/24 History
release Issue
sulfamethoxazole 800 1 tab PO DAILY Infection 09/24/24 09/24/24 History
mg-trimethoprim 160 mg tablet
(Bactrim DS)
Review of Systems
-
all complete 12 point ROS have been inquired and found negative other than stated in HPI
Physical Exam
Vital Signs
Vital Signs
Temp Pulse Resp BP Pulse Ox
97.8 F 83 20 119/78 100
09/25/24 07:44 09/25/24 07:44 09/25/24 07:44 09/25/24 07:59 09/25/24 07:44
Lab Results
WBC 3.9 10^3/uL (4.8-10.8) L 09/25/24 08:00
RBC 2.64 10^6/uL (4.20-5.40) L 09/25/24 08:00
Hgb 6.7 g/dL (12.0-16.0) L* 09/25/24 09:11
Hct 20.3 % (37.0-47.0) L* 09/25/24 09:11
Plt Count 271 10^3/uL (130-400) D 09/25/24 08:00
Sodium 133 mmol/L (135-145) L 09/25/24 08:00
Potassium 3.9 mmol/L (3.5-5.1) 09/25/24 08:00
Chloride 108 mmol/L (98-107) H 09/25/24 08:00
Carbon Dioxide 17 mmol/L (22-30) L 09/25/24 08:00
BUN 22 mg/dl (7-17) H 09/25/24 08:00
Creatinine 2.0 mg/dL (0.6-1.0) H 09/25/24 08:00
eGFR 35.56 09/25/24 08:00
Glucose 85 mg/dl (70-99) 09/25/24 08:00
Calcium 8.3 mg/dl (8.4-10.2) L 09/25/24 08:00
Albumin 3.4 g/dl (3.5-5.0) L 09/24/24 15:48
CT abd wiht out contrast
IMPRESSION:
Small moderate pericardial effusion, decreased in size since CT examination of July 02, 2024.
Significant interval improvement in anasarca.
Large amount of ascites is present in all 4 quadrants.
No evidence for bowel obstruction or free intraperitoneal air.
Densities in the periaortic region, which could represent prominent vessels and/or top normal lymph nodes, similar appearance to prior examination. Evaluation limited by lack of intravenous contrast.
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 No evidence for femoral head collapse.
Physical Exam
General: Awake, Alert, Oriented, AOx3, No Distress and Nontoxic
HEENT: EOMI, Anicteric, Conjunctivae Clear and Neck Supple
Respiratory: Clear, Normal Excursion and Nonlabored Respirations
Cardiac: S1/S2 and Regular Rate/Rhythm
Breast: Deferred by me
Abdomen: Soft, Nontender and Nondistended
Musculoskeletal: No Cyanosis and No Edema
Skin: No Rash
Neuro: Nonfocal/Grossly Intact
Psych: Mood/afflect pleasant and Appropriate
Data Reviewed
-
Radiology: Report Reviewed by me, Discussed with Physician and Discussed with Patient
Labs: Labs Reviewed by me, Discussed with Physician and Discussed with Patient
Assessment/Plan
-
Assessment:
Intractable N/V/D - ? gastroenteritis
EMILY on CKD III
LN class IV-baseline cr mid 1 range
Gapped Metabolic Acidosis
Chronic Lupus Nephritis
Chronic Ascites secondary to Lupus
Acute on chr ACD-microcytic
hyponatremia
Hypoglycemia
GOut on colchicine
Plan:
A/w GI symp, poor po intake
EMILY -suspect prerenal,c r improving with IVF
UA , UTI sample, await cx, monitor UOP
however need to be cautious with known ascites, pericardial effusion
ok to hold bactrim today-resume in am if cr better
Cont cellcept, HCQ
improving met acidosis with bicarb IVF , likely wean off tonight, labs later today
Bp stable back on Amlodipine
she will need rheum evaluation
hyponatremia likely dilutional
anemia-for transfusion per primary, check fe panel
may need transfer to [place]
d/w primary
--- NOTE | 2024-09-25 10:01 | W.PN.HOSP.TC ---
Today's Communication/Plan
-
Transfusion
Cardiology evaluation
Nephrology evaluation
Assessment / Plan
Assessment / Plan
24-year-old female with history of lupus and lupus nephritis presented with nausea vomiting and diarrhea weight loss and joint pain. Patient moved into this area last summer and has not seen rheumatology since moving here. Still trying to get an
appointment. She saw nephrology 3 months ago and has an appointment coming up on 09/26/2024. She is also had a 28 pound weight loss
Echo 09/18/2024-normal LV size. EF 55 to 60%. Normal RV size and function. Trace MR. Trace TR. Pulmonary pressure 23 mmHg. Small to moderate circumferential pericardial effusion without hemodynamic compromise.
CT abdomen pelvis-small to moderate pericardial effusion decreased in size compared to CT from June 2024. Significant interval and improvement in anasarca. Large amount of ascites. No evidence of bile obstruction or intra peritoneal air.
Densities in the pediatric region could represent prominent vessels or lymph nodes. Lacking IV contrast. Evidence of avascular necrosis of both femoral heads
AAO3
CVS S1 S2 appreciated
Chest Decreased at bases, CTA
Abd - Mild distension, NT, BS present
No pedal edema
# Acute kidney injury-creatinine 2.3-IV fluids and follow creatinine.
# Lupus nephritis
Patient on Plaquenil 200 mg p.o. twice daily, mycophenolate 1500 mg p.o. twice daily
Metabolic acidosis
IV fluids with bicarb
Nephrology evaluation
# Anemia hemoglobin 6.7
Needs transfusion- one unit
Got informed consent signed.
Check iron studies
# Abnormal urine analysis but has a lot of squamous cells. Wait for cultures
# Mild [id number]-Tgyllc-nq with IV fluids
# Pleural effusion/Ascites-history of paracentesis in the past. May need paracentesis again. patient states that she does not feel her abdomen is bloated.
# Pericardial effusion-on colchicine. Consult cardiology
# Hypertension-on amlodipine
# Polyarthritis
# Neuromyelitis optica per chart
# Avascular necrosis of both femoral heads
# DVT prophylaxis-subcutaneous heparin
# Full code
Patient stated that she has lived in this area for 8 to 9 months but has not seen a senior electronics design engineer in their office. When asked why she states that she had an appointment and she was sick at that time and could not reschedule for several months.
Reviewed [employer] from her phone also Called Chuy Meyers .
She was supposed to see a Dr. Beena Lynn onn 08/10/24 and missed it. I see messages on her Ist[employer]ika Fatoumata, for non returned phone calls and also asking if she wants a tele appt.
pt says too far to go for appts.
Patient did not know the name of the senior electronics design engineer or Material Disposition Inspector at [facility]. States that she sees .
On Dheere Bolo I see she has garment worker listed Dr. Solomon Mosqueda, Bishop Perez, Dr.Darius Diaz- patient denies these are her cardiologists.
She states that she lives with her boyfriend and his parents. Parents have ill parents themselves who they have to visit in [place]. I made her aware that she may be able to qualify for rights through insurance company. She states that she knows
about that and needs to get a letter but have not gotten it yet.
She is aware that if she does not keep up with appointments and take care of her health her illness can get worse and she could even .
She may need a employment case manager as or sales executive insurance who can help her navigate the system as she finds it too hard. Will request case management.
Discussed with nursing
I have sent a message for our senior electronics design engineer on-call for advise
Discussed with nephrology
D/W Case management
Left a message for Luigi Vera - ( Fellow) for call back.
Time over 1 hour.
Anticipated Discharge: > 48 hours
Subjective/Interval History
-
Date of Service: September 25, 2024
Objective Data
-
Labs:
Laboratory Results
09/24/24 09/25/24 09/25/24
21:35 08:00 09:11
WBC 3.9 L
Hgb 6.7 L* 6.7 L*
Hct 20.4 L* 20.3 L*
Plt Count 271 D
Sodium 133 L 133 L
Potassium 4.3 3.9
Chloride 109 H 108 H
Carbon Dioxide 13 L* 17 L
BUN 26 H 22 H
Creatinine 2.3 H 2.0 H
Glucose 77 85
Calcium 8.0 L 8.3 L
Vital Signs:
Vital Signs
Temp Pulse Resp BP Pulse Ox
97.8 F 83 20 119/78 100
09/25/24 07:44 09/25/24 07:44 09/25/24 07:44 09/25/24 07:59 09/25/24 07:44
I&O
09/24/24 09/25/24 09/26/24
06:59 06:59 06:59
Intake Total 1200 / 1200
Balance 1200 / 1200
--- NOTE | 2024-09-25 11:02 | W.PN.UPDATE ---
Update Note
Progress Note Update
Spoke to rheumatology on-call Dr. Padilla recommended transfer to a facility where she can get inpatient rheumatology evaluation. Patient made aware. Her family is in [place]. She is engaged but not yet and lives with boyfriend and his
parents. She wants to let her family know about the transfer herself.
Called [facility] and initiated transfer
They will call me back
Dr Díaz called back but not the working second hand team. Said some one from working second hand will call back.
[2024-09-25 11:19] LABS: Iron 64 ug/dl (37-170)
[2024-09-25 11:28] LABS: Percent Saturation 36 % (20-50); Total Iron Binding Capacity 173 ug/dl (265-497)
[2024-09-25 12:10] LABS: Vitamin B12 389 pg/ml (239-931)
--- NOTE | 2024-09-25 12:49 | CM ---
manager title reviewed patient's chart and met with patient and patient lives with her boyfriend and his parents in a multilevel home, patient is independent with adl's and ambulation, no dme. manager title received a consult from physician regarding
manager of case management to follow patient after discharge. manager title spoke with patient regarding assigned manager of case management. manager title also reached out to patient's insurance [employer] of [place] and patient has a manager of case management through her insurance
that was provided to her when she obtained her insurance. Patient admits to not following up with appointments, sometimes she does not have transport, asked her to have boyfriends Parent's assist as boyfriend has special needs and does not drive and
she agreed that they help when they are not busy.
PCP: Chela Thornton
Pharmacy [facility].
Plan; Home when boyfriend and his parents.
--- NOTE | 2024-09-25 14:18 | W.PN.UPDATE ---
Update Note
Progress Note Update
Spoke to Dr Ohara Rheum at [facility] and also Internal medicine.
Advised to get Active Lupus panel. Blood Cx
GEOVANNY
Urinalysis [facility] ration
Pt accepted. But no beds now.
Also have our Rheumatology guide treatment till she gets a bed there at [facility].
[2024-09-25 14:34] LABS: Erythrocyte Sed Rate 134 mm/hour (0-20)
[2024-09-25] MEDS: VITAMIN B-12 1000 MCG PO (14:52)
[2024-09-25 14:53] LABS: LDH 158 U/L (120-246)
[2024-09-25 15:12] LABS: Blood Urea Nitrogen 19 mg/dl (7-17); Calcium 8.1 mg/dl (8.4-10.2); Carbon Dioxide 19 mmol/L (22-30); Chloride 107 mmol/L (98-107); Estimated Creatinine Clearance 43 ml/min; Glucose 78 mg/dl (70-99); Potassium 4.1 mmol/L (3.5-5.1); Sodium 135 mmol/L (135-145); eGFR 46.48
[2024-09-25 15:16] LABS: Complement C3 67 mg/dl (88-165)
--- NOTE | 2024-09-25 15:59 | CON.CAR ---
Addendum entered and electronically signed by Reji Bliss DO 09/25/24 17:17:
I saw and examined the patient.
The Inspector Dials's note was reviewed and I agree with the note.
Comment:
Plan:
Patient awaiting transfer for lupus nephritis with significant anemia, acute renal insufficiency, inpatient rheumatology evaluation and treatment.
CT of the chest showed evidence of pericardial effusion decreased in size compared to prior CT from June 2024. The patient had known stable pericardial effusion but echo September 18, 2024.
2D echo study today shows no change from prior echo from September 18.
Continue colchicine
Stable cardiovascular status.
Please recall if needed.
Original Note:
Consultation
Consultation Request
Date/Time Consultation Requested: 09/25/2024
Date/Time Consultation Performed: 09/25/2024
Requesting Provider: Dr. Walter
Performing Provider: Lilly Oviedo PA-C for Dr. Bliss
Reason for Consultation: Pericardial effusion
Medical History
-
History of Present Illness:
HPI: Amy is a 24 year old female with PMH of lupus with lupus nephritis, chronic anemia, neuromyelitis optica, HTN, and pericardial effusion. She presented to [facility] for evaluation of abdominal pain, nausea, vomiting, and joint pain x 1 week. In
ER found to have EMILY and anemia with hemoglobin 6.7. CT of chest revealed small-moderate pericardial effusion which appeared decreased in size compared to prior CT from 06/2024. She has had known stable pericardial effusion since prior admission
06/2024. She continues on colchicine and had recent echo 09/18/2024 which revealed small-moderate circumferential pericardial effusion without evidence of hemodynamic compromise, no change noted compared to prior study 08/09/2024. Cardiology
consulted for evaluation. She is pending transfer to [place] for inpatient rheumatology evaluation.
PMH:
Pericardial effusion
Lupus/lupus nephritis
Neuromyelitis Optica
Chronic Anemia
HTN
Past Medical History
Past Medical History: Other (In HPI)
Social History
Tobacco: Non-Smoker
Alcohol: None
Drug: None
Personal: Partner
Living: With Family
Family History
Family History: Reviewed & Not Pertinent
Allergies / Home Medications
Allergy/AdvReac Type Severity Reaction Status Date / Time
KATERINA Inhibitors Allergy Swelling/an Verified 09/24/24 15:44
gioedema
�Medication �Instructions �Recorded �Confirmed �Type
mycophenolate mofetil 500 mg tablet 1,500 mg PO BID 07/02/24 09/24/24 History
amlodipine 5 mg tablet 5 mg PO DAILY Blood Pressure 09/24/24 09/24/24 History
colchicine 0.6 mg tablet 0.6 mg PO DAILY Gout 09/24/24 09/24/24 History
ergocalciferol (vitamin D2) 1,250 1,250 mcg PO TH Supplement 09/24/24 09/24/24 History
mcg (50,000 unit) capsule
hydroxychloroquine 200 mg tablet 200 mg PO BID 09/24/24 09/24/24 History
(Plaquenil)
pantoprazole 40 mg tablet,delayed 40 mg PO DAILY Gastrointestinal 09/24/24 09/24/24 History
release Issue
sulfamethoxazole 800 1 tab PO DAILY Infection 09/24/24 09/24/24 History
mg-trimethoprim 160 mg tablet
(Bactrim DS)
Review of Systems
-
History Source: Patient
All other systems: Negative unless noted
Physical Exam
Vital Signs
Temp Pulse Resp BP Pulse Ox
98.9 F 79 18 124/71 100
09/25/24 15:57 09/25/24 15:57 09/25/24 15:57 09/25/24 15:57 09/25/24 14:59
Lab Results
09/25/24 09:11
09/25/24 14:33
Physical Exam
General: Well Developed, Well Nourished and No Apparent Distress
HEENT: Normocephalic, Anicteric and Moist Mucous Membranes
Respiratory: Clear and Non Labored Respirations
Cardiac: S1/S2 and Regular Rhythm
Musculoskeletal: No Clubbing, No Cyanosis and No Edema
Skin: Warm and Dry
Neuro: AO x 3 and Nonfocal/Grossly Intact
Psych: Calm
Impression / Plan
-
PCP: Dr. Thornton
Trolley Car Mechanic: Dr. Larry
Impression:
Presented with abdominal pain, nausea
Small pericardial effusion
Lupus/lupus nephritis
Neuromyelitis Optica
Chronic Anemia
HTN
Echo 07/02/2024: EF 60 to 65%, mild concentric LVH, trace MR, large circumferential pericardial effusion
Echo 08/09/2024: EF 60 to 65%, small to moderate pericardial effusion without evidence of hemodynamic compromise
Echo 09/18/2024: EF 55 to 60%, trace MR, trace TR, estimated PAP 23 mmHg, small to moderate circumferential pericardial effusion without evidence of hemodynamic compromise
Echo 09/25/2024: Study pending
Plan:
-Presented with nausea, vomiting. Admitted with EMILY, ascites noted on CT scan.
-Cardiology consulted due to small-moderate pericardial effusion noted on CT. She has had chronic pericardial effusion which has been stable most recently 09/18/24.
-Rechecked limited echo to reassess pericardial effusion. Preliminary report revealed small pericardial effusion.
-Continue colchicine 0.6 mg daily.
-Hgb down to 6.7. s/p 1 unit PRBCs 09/25. Continue to follow.
-Continue management of lupus nephritis per nephrology/rheumatology.
-BP stable, continue amlodipine.
-Patient is awaiting transfer to [place].
HPI: Amy is a 24 year old female with PMH of lupus with lupus nephritis, chronic anemia, neuromyelitis optica, HTN, and pericardial effusion. She presented to [facility] for evaluation of abdominal pain, nausea, vomiting, and joint pain x 1 week. In
ER found to have EMILY and anemia with hemoglobin 6.7. CT of chest revealed small-moderate pericardial effusion which appeared decreased in size compared to prior CT from 06/2024. She has had known stable pericardial effusion since prior admission
06/2024. She continues on colchicine and had recent echo 09/18/2024 which revealed small-moderate circumferential pericardial effusion without evidence of hemodynamic compromise, no change noted compared to prior study 08/09/2024. Cardiology
consulted for evaluation. She is pending transfer to [place] for inpatient rheumatology evaluation.
Data Reviewed
-
CT Scan: Report Reviewed by me
Labs: Labs Reviewed by me
Old Records: Reviewed
[2024-09-25 23:11] LABS: Protein/creatinine Ratio 1.3; Urine Protein 144 mg/dl
[2024-09-26 03:06] VITALS: BP 119/85
[2024-09-26] MEDS: TYLENOL 650 MG PO (03:19)
[2024-09-26] MEDS: DILAUDID 0.5 MG IV ×5 (03:38→21:23)
[2024-09-26 05:38] VITALS: BMI 20.5
[2024-09-26 07:52] VITALS: BP 129/80
[2024-09-26] MEDS: NORVASC 5 MG PO (08:58)
[2024-09-26] MEDS: PLAQUENIL 200 MG PO ×2 (08:58→20:03)
[2024-09-26] MEDS: COLCHICINE 0.6 MG PO (08:58)
[2024-09-26] MEDS: CELLCEPT 1500 MG PO ×2 (08:58→20:03)
[2024-09-26] MEDS: VITAMIN B-12 1000 MCG PO (08:59)
[2024-09-26] MEDS: ZOFRAN 4 MG IV ×2 (09:02→17:48)
[2024-09-26 09:09] LABS: Blood Urea Nitrogen 15 mg/dl (7-17); Calcium 8.1 mg/dl (8.4-10.2); Carbon Dioxide 21 mmol/L (22-30); Chloride 108 mmol/L (98-107); Estimated Creatinine Clearance 47 ml/min; Glucose 82 mg/dl (70-99); Potassium 3.9 mmol/L (3.5-5.1); Sodium 136 mmol/L (135-145); eGFR 50.22
[2024-09-26 09:15] LABS: % Basophils 0.5 % (0-2); % Eosinophils 0.5 % (0-6); % Immature Granulocytes 0.5 % (0-0.5); % Lymphocytes 14.6 % (20.5-51.1); % Monocytes 12.3 % (1.7-9.3); % Neutrophils 71.6 % (42.2-75.2); Absolute Lymphocytes 0.6 10^3/uL (1.2-3.4); Absolute Monocytes 0.5 10^3/uL (0.1-0.6); Absolute Neutrophils 2.9 10^3/uL (1.4-6.5); Hematocrit 25.3 % (37.0-47.0); Hemoglobin 8.3 g/dL (12.0-16.0); Mean Corp Hgb Conc. 32.8 g/dL (33.0-37.0); Mean Corpuscular Hgb 25.7 pg (27.0-31.0); Mean Corpuscular Volume 78.3 fL (81.0-99.0); Mean Platelet Volume 11.8 fL (7.4-10.4); Nucleated Red Blood Cells % 0 %; Platelet Count 259 10^3/uL (130-400); Red Blood Cell Count 3.23 10^6/uL (4.20-5.40); Red Cell Dist. Width 13.5 % (11.5-14.5)
[2024-09-26 10:27] VITALS: BMI 20.5
[2024-09-26 10:56] VITALS: BP 119/87
[2024-09-26 15:08] VITALS: BP 119/82
--- NOTE | 2024-09-26 15:49 | W.PN.HOSP.TC ---
Today's Communication/Plan
-
Add Pepcid
If nausea and poor p.o. intake continues may need GI evaluation
Follow creatinine
Assessment / Plan
Assessment / Plan
24-year-old female with history of lupus and lupus nephritis presented with nausea vomiting and diarrhea weight loss and joint pain. Patient moved into this area last summer and has not seen rheumatology since moving here. Still trying to get an
appointment. She saw nephrology 3 months ago and has an appointment coming up on 09/26/2024. She is also had a 28 pound weight loss
Echo 09/18/2024-normal LV size. EF 55 to 60%. Normal RV size and function. Trace MR. Trace TR. Pulmonary pressure 23 mmHg. Small to moderate circumferential pericardial effusion without hemodynamic compromise.
CT abdomen pelvis-small to moderate pericardial effusion decreased in size compared to CT from June 2024. Significant interval and improvement in anasarca. Large amount of ascites. No evidence of bile obstruction or intra peritoneal air.
Densities in the pediatric region could represent prominent vessels or lymph nodes. Lacking IV contrast. Evidence of avascular necrosis of both femoral heads.
Denies abdominal pain. still nauseous.
AAO3
CVS S1 S2 appreciated
Chest Decreased at bases, CTA
Abd - Mild distension, NT, BS present
No pedal edema
# Acute kidney injury-creatinine 2.3-IV fluids and follow creatinine.
# Lupus nephritis
Patient on Plaquenil 200 mg p.o. twice daily, mycophenolate 1500 mg p.o. twice daily
Metabolic acidosis
IV fluids with bicarb
Nephrology evaluation
Unclear she has a lupus flare. She does have pericardial effusion, pleural effusion and ascites and anemia
Elevated creatinine could have been likely prerenal which seems to be improving.
C3 slightly low C4 is normal
Anti-dsDNA and BEULAH IgG pending
CRP 27, sed rate 134
# Anemia hemoglobin 6.7
Needs transfusion- one unit
Got informed consent signed.
Check iron studies
GEOVANNY neg
Haptoglobin pending, LDH normal
Doubt hemolysis. Normal bilirubin also
# Nausea-poor p.o. intake. If continues will need GI evaluation. Patient denies any abdominal pain. Add Pepcid.
# Abnormal urine analysis but has a lot of squamous cell. Await Cx
# Hyponatremia-resolved.
# Pleural effusion/Ascites-history of paracentesis in the past. May need paracentesis again. patient states that she does not feel her abdomen is bloated.
# Pericardial effusion-on colchicine. Cardiology evaluation appreciated. Echo stable therefore no further recommendations from cardiology
# Hypertension-on amlodipine
# Polyarthritis
# Neuromyelitis optica per chart
# Avascular necrosis of both femoral heads
# DVT prophylaxis-subcutaneous heparin
# Full code
Discussed with nephrology
Still awaiting transfer to [place]
Patient did not want me to talk to her family members she said that she will update them the herself
09/25/2024 -patient stated that she has lived in this area for 8 to 9 months but has not seen a tie tape machine operator in their office. When asked why she states that she had an appointment and she was sick at that time and could not reschedule for several
months.
Reviewed [employer] from her phone also Called Chuy Meyers .
She was supposed to see a Dr. Beena Lynn onn 08/10/24 and missed it. I see messages on her [employer] Fatoumata, for non returned phone calls and also asking if she wants a tele appt.
pt says too far to go for appts.
Patient did not know the name of the tie tape machine operator or Shop Hand at [facility]. States that she sees .
On [employer] I see she has classified advertising supervisor listed Dr. Solomon Mosqueda, Bishop Perez, Dr.Darius Diaz- patient denies these are her cardiologists.
She states that she lives with her boyfriend and his parents. Parents have ill parents themselves who they have to visit in [place]. I made her aware that she may be able to qualify for rights through insurance company. She states that she knows
about that and needs to get a letter but have not gotten it yet.
She is aware that if she does not keep up with appointments and take care of her health her illness can get worse and she could even .
She may need a correctional counselor/case manager as or reinsurance accountant who can help her navigate the system as she finds it too hard.
Anticipated Discharge: 24 - 48 hours
Subjective/Interval History
-
Date of Service: September 26, 2024
Objective Data
-
Labs:
Laboratory Results
09/26/24
08:02
WBC 4.0 L
Hgb 8.3 L D
Hct 25.3 L
Plt Count 259
Sodium 136
Potassium 3.9
Chloride 108 H
Carbon Dioxide 21 L
BUN 15
Creatinine 1.5 H
Glucose 82
Calcium 8.1 L
Vital Signs:
Vital Signs
Temp Pulse Resp BP Pulse Ox
98.8 F 89 18 119/82 100
09/26/24 15:08 09/26/24 15:08 09/26/24 15:08 09/26/24 15:08 09/26/24 15:08
I&O
09/25/24 09/26/24 09/27/24
06:59 06:59 06:59
Intake Total 1200 / 1200 1889
Balance 1200 / 1200 1889
--- NOTE | 2024-09-26 16:21 | W.PN.NEPH.PH ---
Today's Communication / Plan
-
observe off IVF
Assessment/Plan
-
Assessment:
Intractable N/V/D - ? gastroenteritis
EMILY on CKD III
LN class IV-baseline cr mid 1 range
Gapped Metabolic Acidosis
Chronic Lupus Nephritis
Chronic Ascites secondary to Lupus
Acute on chr ACD-microcytic
hyponatremia
Hypoglycemia
GOut on colchicine
Plan:
A/w GI symp, poor po intake
EMILY -suspect prerenal,c r improving with IVF to baseline
UA , UTI sample, GN in cx, monitor UOP
small pericardial effusion on echo
ok to resume bactrim for PPX
Cont cellcept, HCQ
improving met acidosis
Bp stable back on Amlodipine
pending trasnfer to [facility], complement low but better than before and Proteinuria better too
hyponatremia resolved
anemia-hb better post PRBC
d/w primary
-
-
Date of Service: September 26, 2024
CC / HPI / ROS
-
Chief Complaint:
EMILY with CKD
History of Present Illness:
cr better at 1.5
BP stable, no fever
hb better post PRBC 09/25
Review of Systems:
no cp or sob
but still nausea and vomiting
has diarrhea
Labs
-
Labs:
WBC 4.0 10^3/uL (4.8-10.8) L 09/26/24 08:02
RBC 3.23 10^6/uL (4.20-5.40) L 09/26/24 08:02
Hgb 8.3 g/dL (12.0-16.0) L D 09/26/24 08:02
Hct 25.3 % (37.0-47.0) L 09/26/24 08:02
Plt Count 259 10^3/uL (130-400) 09/26/24 08:02
Sodium 136 mmol/L (135-145) 09/26/24 08:02
Potassium 3.9 mmol/L (3.5-5.1) 09/26/24 08:02
Chloride 108 mmol/L (98-107) H 09/26/24 08:02
Carbon Dioxide 21 mmol/L (22-30) L 09/26/24 08:02
BUN 15 mg/dl (7-17) 09/26/24 08:02
Creatinine 1.5 mg/dL (0.6-1.0) H 09/26/24 08:02
eGFR 50.22 09/26/24 08:02
Glucose 82 mg/dl (70-99) 09/26/24 08:02
Calcium 8.1 mg/dl (8.4-10.2) L 09/26/24 08:02
Albumin 3.4 g/dl (3.5-5.0) L 09/24/24 15:48
Physical Exam
-
Vital Signs:
Vital Signs
Temp Pulse Resp BP Pulse Ox
98.8 F 89 18 119/82 100
09/26/24 15:08 09/26/24 15:08 09/26/24 15:08 09/26/24 15:08 09/26/24 15:08
Cardiovascular:: Regular rate and rhythm
Respiratory:: Bilateral: CTA
Lung Excursion:: Normal
Abdomen:: Nontender and Soft
Extremity Edema:: None: Bilateral:
Shaw Catheter: No
[2024-09-26 19:28] VITALS: BP 118/79
[2024-09-26] MEDS: PEPCID 20 MG PO (20:03)
[2024-09-26 23:32] VITALS: BP 115/76
[2024-09-27 02:54] VITALS: BP 114/80
[2024-09-27] MEDS: DILAUDID 0.5 MG IV ×5 (03:07→21:45)
[2024-09-27 04:35] VITALS: BMI 20.1
[2024-09-27 07:00] VITALS: BP 130/89
[2024-09-27] MEDS: PLAQUENIL 200 MG PO ×2 (08:15→20:58)
[2024-09-27] MEDS: NORVASC 5 MG PO (08:15)
[2024-09-27] MEDS: VITAMIN B-12 1000 MCG PO (08:15)
[2024-09-27] MEDS: COLCHICINE 0.6 MG PO (08:15)
[2024-09-27] MEDS: PEPCID 20 MG PO (08:15)
[2024-09-27] MEDS: CELLCEPT 1500 MG PO ×2 (08:16→20:58)
[2024-09-27 09:05] LABS: Hematocrit 26.9 % (37.0-47.0); Hemoglobin 8.7 g/dL (12.0-16.0); Mean Corp Hgb Conc. 32.3 g/dL (33.0-37.0); Mean Corpuscular Hgb 25.6 pg (27.0-31.0); Mean Corpuscular Volume 79.1 fL (81.0-99.0); Mean Platelet Volume 11.8 fL (7.4-10.4); Platelet Count 246 10^3/uL (130-400); Red Cell Dist. Width 13.6 % (11.5-14.5); White Blood Cell Count 4.2 10^3/uL (4.8-10.8)
[2024-09-27] MEDS: THERAGRAN 1 TABLET PO (09:25)
[2024-09-27 09:31] LABS: Blood Urea Nitrogen 13 mg/dl (7-17); Calcium 8.4 mg/dl (8.4-10.2); Carbon Dioxide 19 mmol/L (22-30); Chloride 109 mmol/L (98-107); Estimated Creatinine Clearance 53 ml/min; Glucose 53 mg/dl (70-99); Sodium 138 mmol/L (135-145); eGFR 59.63
[2024-09-27 09:43] LABS: Vitamin D, 25-OH*** < 12.8 ng/mL (30-80)
[2024-09-27 09:49] LABS: Glucose - Point of Care 72 mg/dl (70-99)
[2024-09-27 10:56] VITALS: BP 120/88
--- NOTE | 2024-09-27 10:57 | W.PN.NEPH.PH ---
Today's Communication / Plan
-
follow BMP
Assessment/Plan
-
Assessment:
Intractable N/V/D - ? gastroenteritis
EMILY on CKD III
LN class IV-baseline cr mid 1 range
Gapped Metabolic Acidosis
Chronic Lupus Nephritis
Chronic Ascites secondary to Lupus
Acute on chr ACD-microcytic
hyponatremia
Hypoglycemia
GOut on colchicine
Plan:
follow BMP
on MMF/plaquenil
ok for bactrim if needed
may not need transfer to [facility], just timely OP f/u with rhematology
will sign off, call with questions
-
-
Date of Service: September 27, 2024
CC / HPI / ROS
-
Chief Complaint:
EMILY with CKD
History of Present Illness:
cr better at 1.3
BP stable, no fever
hgb stable
eating well
Review of Systems:
no cp or sob
no N/V
Labs
-
Labs:
WBC 4.2 10^3/uL (4.8-10.8) L 09/27/24 08:54
RBC 3.40 10^6/uL (4.20-5.40) L 09/27/24 08:54
Hgb 8.7 g/dL (12.0-16.0) L 09/27/24 08:54
Hct 26.9 % (37.0-47.0) L 09/27/24 08:54
Plt Count 246 10^3/uL (130-400) 09/27/24 08:54
Sodium 138 mmol/L (135-145) 09/27/24 08:54
Potassium 4.0 mmol/L (3.5-5.1) 09/27/24 08:54
Chloride 109 mmol/L (98-107) H 09/27/24 08:54
Carbon Dioxide 19 mmol/L (22-30) L 09/27/24 08:54
BUN 13 mg/dl (7-17) 09/27/24 08:54
Creatinine 1.3 mg/dL (0.6-1.0) H 09/27/24 08:54
eGFR 59.63 09/27/24 08:54
Glucose 53 mg/dl (70-99) L* 09/27/24 08:54
Calcium 8.4 mg/dl (8.4-10.2) 09/27/24 08:54
Albumin 3.4 g/dl (3.5-5.0) L 09/24/24 15:48
Physical Exam
-
Vital Signs:
Vital Signs
Temp Pulse Resp BP Pulse Ox
98.3 F 87 18 120/88 100
09/27/24 10:56 09/27/24 10:56 09/27/24 10:56 09/27/24 10:56 09/27/24 10:56
Cardiovascular:: Regular rate and rhythm
Respiratory:: Bilateral: Coarse
Lung Excursion:: Normal
Abdomen:: Nontender and Soft
Bowel Sounds:: Normal
Extremity Edema:: None: Bilateral:
[2024-09-27 14:11] LABS: Urine Albumin 3+ (Neg - Trace); Urine Bilirubin Negative (Negative); Urine Character Slightly Cloudy (Clear); Urine Color Yellow; Urine Glucose Negative (Negative); Urine Ketone 1+ (Negative); Urine Leukocyte 3+ (Negative); Urine Nitrite Negative (Negative); Urine Occult Blood 4+ (Negative); Urine Urobilinogen Negative (Neg - 1+)
[2024-09-27 14:21] LABS: Urine Bacteria Many (Negative); Urine Red Blood Cell 0-2 /HPF (0-2); Urine White Cell 50-60 /HPF (0-5)
[2024-09-27 15:20] VITALS: BP 118/76
--- NOTE | 2024-09-27 16:11 | W.PN.HOSP.TC ---
Today's Communication/Plan
-
Encourage PO
Assessment / Plan
Assessment / Plan
24-year-old female with history of lupus and lupus nephritis presented with nausea vomiting and diarrhea weight loss and joint pain. Patient moved into this area last summer and has not seen rheumatology since moving here. Still trying to get an
appointment. She saw nephrology 3 months ago and has an appointment coming up on 09/26/2024. She is also had a 28 pound weight loss
Echo 09/18/2024-normal LV size. EF 55 to 60%. Normal RV size and function. Trace MR. Trace TR. Pulmonary pressure 23 mmHg. Small to moderate circumferential pericardial effusion without hemodynamic compromise.
CT abdomen pelvis-small to moderate pericardial effusion decreased in size compared to CT from June 2024. Significant interval and improvement in anasarca. Large amount of ascites. No evidence of bile obstruction or intra peritoneal air.
Densities in the pediatric region could represent prominent vessels or lymph nodes. Lacking IV contrast. Evidence of avascular necrosis of both femoral heads.
Denies abdominal pain. still nauseous.
AAO3
CVS S1 S2 appreciated
Chest Decreased at bases, CTA
Abd - Mild distension, NT, BS present
No pedal edema
# Acute kidney injury-creatinine 2.3-improved to 1.3 today
Lupus nephritis
Patient on Plaquenil 200 mg p.o. twice daily, mycophenolate 1500 mg p.o. twice daily
Metabolic acidosis
Creatinine improved to 1.3 today
Nephrology evaluation
Unclear she has a lupus flare. She does have pericardial effusion, pleural effusion and ascites and anemia
Elevated creatinine could have been likely prerenal which seems to be improving.
C3 slightly low C4 is normal
Anti-dsDNA and BEULAH IgG pending
CRP 27, sed rate 134
# Anemia hemoglobin 6.7
Needs transfusion- one unit given with improvement in hemoglobin
GEOVANNY neg
Haptoglobin pending, LDH normal
Doubt hemolysis. Normal bilirubin also
# Nausea-poor p.o. intake. p.o. intake improved add Pepcid.
# Abnormal urine analysis but has a lot of squamous cell. Repeat urine analysis also noted. She has Citrobacter. Will start ciprofloxacin because of immunosuppression
# Hyponatremia-resolved.
# Pleural effusion/Ascites-history of paracentesis in the past. May need paracentesis again. patient states that she does not feel her abdomen is bloated.
# Pericardial effusion-on colchicine. Cardiology evaluation appreciated. Echo stable therefore no further recommendations from cardiology
# Hypertension-on amlodipine
# Polyarthritis
# Vitamin D deficiency-replace
# Neuromyelitis optica per chart
# Avascular necrosis of both femoral heads
# DVT prophylaxis-subcutaneous heparin
# Full code
Discussed with nephrology, discussed with GI
Still awaiting transfer to [facility]
Discussed with nursing
Patient gave me permission to talk to her ángela�'s father. Spoke to Scot Mazariegos [phone]. Made aware that patient is extremely sick and chronically ill on a daily basis. Discussed about renal failure, nausea poor p.o. intake, pericardial
effusion, ascites, probably not well-controlled lupus. Also discussed about missed appointments and the need to see a primary teaching assistant. They assured that they will take her to a primary teaching assistant appointment.
Discussed with GI. They reviewed the chart and recommended only symptomatic treatment for nausea at this time. No paracentesis was recommended by GI as patient does not have any symptoms or fever.
09/25/2024 -patient stated that she has lived in this area for 8 to 9 months but has not seen a primary teaching assistant in their office. When asked why she states that she had an appointment and she was sick at that time and could not reschedule for several
months.
Reviewed epic MyChart from her phone also Called [facility] .
She was supposed to see a Dr. Beena Lynn onn 08/10/24 and missed it. I see messages on her [facility], for non returned phone calls and also asking if she wants a tele appt.
pt says too far to go for appts.
Patient did not know the name of the primary teaching assistant or Radio Presenter at [facility]. States that she sees .
On epic MyChart I see she has geographic information systems director listed Dr. Solomon Mosqueda, Bishop Perez, Dr.Darius Diaz- patient denies these are her cardiologists.
She states that she lives with her boyfriend and his parents. Parents have ill parents themselves who they have to visit in [place]. I made her aware that she may be able to qualify for rights through insurance company. She states that she knows
about that and needs to get a letter but have not gotten it yet.
She is aware that if she does not keep up with appointments and take care of her health her illness can get worse and she could even .
She may need a caseworker protective services as or insurance associate who can help her navigate the system as she finds it too hard.
time spent over 50 min
Anticipated Discharge: 24 - 48 hours
Subjective/Interval History
-
Date of Service: September 27, 2024
Objective Data
-
Labs:
Laboratory Results
09/27/24
08:54
WBC 4.2 L
Hgb 8.7 L
Hct 26.9 L
Plt Count 246
Sodium 138
Potassium 4.0
Chloride 109 H
Carbon Dioxide 19 L
BUN 13
Creatinine 1.3 H
Glucose 53 L*
Calcium 8.4
Vital Signs:
Vital Signs
Temp Pulse Resp BP Pulse Ox
97.9 F 87 18 118/76 100
09/27/24 15:20 09/27/24 15:20 09/27/24 15:20 09/27/24 15:20 09/27/24 15:20
I&O
09/26/24 09/27/24 09/28/24
06:59 06:59 06:59
Intake Total 1889
Balance 1889
--- NOTE | 2024-09-27 17:02 | CM ---
Home with boyfriend and his family when stable.
Plan; Home with stable.
[2024-09-27 19:32] VITALS: BP 129/87
[2024-09-27] MEDS: CIPRO 500 MG PO (20:58)
[2024-09-27 23:13] LABS: Anti-Xa Qualitative Interp Not Present (Not Present); Anticoagulant Med Neutralizati Not Performed (Not Performed); Hexagonal Phospholipid Confirm 10.5 s (<=7.9); Neutralized PTT-LA Ratio Not Performed (<=1.20); Neutralized dRVTT Screen Ratio Not Performed (<=1.20); PTT-LA Ratio 1.29 (<=1.20); Prothrombin Time 14.8 s (12.0-15.5); Thrombin Time 17.9 s (<=19.5); dRVTT 1.1 Mix Ratio Not Performed (<=1.20); dRVTT Confirmation Ratio Not Performed (<=1.20); dRVTT Screen Ratio 1.06 (<=1.20)
[2024-09-27 23:40] VITALS: BP 126/77
[2024-09-28 00:52] LABS: ds-DNA Ab, IgG Reflex To Titer 219 IU (0-24)
[2024-09-28 01:56] LABS: ANA, IgG Reflex to HEp-2 Detected (None Detected)
[2024-09-28 03:30] VITALS: BP 138/93
[2024-09-28] MEDS: DILAUDID 0.5 MG IV ×3 (05:10→12:32)
[2024-09-28 07:57] VITALS: BP 137/88
[2024-09-28 08:10] LABS: Hematocrit 26.9 % (37.0-47.0); Hemoglobin 8.8 g/dL (12.0-16.0); Mean Corp Hgb Conc. 32.7 g/dL (33.0-37.0); Mean Corpuscular Hgb 26.1 pg (27.0-31.0); Mean Corpuscular Volume 79.8 fL (81.0-99.0); Mean Platelet Volume 12.3 fL (7.4-10.4); Platelet Count 275 10^3/uL (130-400); Red Blood Cell Count 3.37 10^6/uL (4.20-5.40); Red Cell Dist. Width 13.7 % (11.5-14.5); White Blood Cell Count 5.3 10^3/uL (4.8-10.8)
[2024-09-28 08:27] LABS: Blood Urea Nitrogen 13 mg/dl (7-17); Calcium 8.8 mg/dl (8.4-10.2); Carbon Dioxide 19 mmol/L (22-30); Chloride 107 mmol/L (98-107); Estimated Creatinine Clearance 53 ml/min; Glucose 58 mg/dl (70-99); Potassium 4.1 mmol/L (3.5-5.1); Sodium 137 mmol/L (135-145); eGFR 59.63
[2024-09-28 08:35] LABS: Haptoglobin 320 mg/dL (30-200)
[2024-09-28 11:11] VITALS: BP 129/89
[2024-09-28] MEDS: THERAGRAN 1 TABLET PO (11:47)
[2024-09-28] MEDS: PLAQUENIL 200 MG PO (11:47)
[2024-09-28] MEDS: PEPCID 20 MG PO (11:47)
[2024-09-28] MEDS: VITAMIN B-12 1000 MCG PO (11:47)
[2024-09-28] MEDS: CIPRO 500 MG PO (11:47)
[2024-09-28] MEDS: NORVASC 5 MG PO (11:48)
[2024-09-28] MEDS: CELLCEPT 1500 MG PO (11:48)
[2024-09-28] MEDS: COLCHICINE 0.6 MG PO (11:48)
[2024-09-28] MEDS: VITAMIN D3 (cholecalciferol) 25 MCG PO (11:48)
[2024-09-28] MEDS: DRISDOL (VITAMIN D2) 50000 UNITS PO (11:53)
--- NOTE | 2024-09-28 14:15 | CM ---
Chart reviewed and will follow with patient progress.
Plan; Home when stable.
[2024-09-28] MEDS: FLUSH (NSS) 1 FLUSH IV (14:53)
[2024-09-28 15:07] VITALS: BP 122/84
--- NOTE | 2024-09-28 16:44 | W.PN.HOSP.TC ---
Today's Communication/Plan
-
Encourage p.o. intake
If better will discharge tomorrow
I have reached out to rheumatology on-call for any further recommendations based on the current labs. They will reach back to me
Assessment / Plan
Assessment / Plan
24-year-old female with history of lupus and lupus nephritis presented with nausea vomiting and diarrhea weight loss and joint pain. Patient moved into this area last summer and has not seen rheumatology since moving here. Still trying to get an
appointment. She saw nephrology 3 months ago and has an appointment coming up on 09/26/2024. She is also had a 28 pound weight loss
Echo 09/18/2024-normal LV size. EF 55 to 60%. Normal RV size and function. Trace MR. Trace TR. Pulmonary pressure 23 mmHg. Small to moderate circumferential pericardial effusion without hemodynamic compromise.
CT abdomen pelvis-small to moderate pericardial effusion decreased in size compared to CT from June 2024. Significant interval and improvement in anasarca. Large amount of ascites. No evidence of bile obstruction or intra peritoneal air.
Densities in the pediatric region could represent prominent vessels or lymph nodes. Lacking IV contrast. Evidence of avascular necrosis of both femoral heads.
Denies abdominal pain. still nauseous.
AAO3
CVS S1 S2 appreciated
Chest Decreased at bases, CTA
Abd - Mild distension, NT, BS present
No pedal edema
# Acute kidney injury-creatinine 2.3-improved to 1.3 today
Lupus nephritis
Patient on Plaquenil 200 mg p.o. twice daily, mycophenolate 1500 mg p.o. twice daily
Metabolic acidosis better
Creatinine improved to 1.3 today
Nephrology evaluation appreciated
Unclear she has a lupus flare. She does have pericardial effusion, pleural effusion and ascites and anemia
Elevated creatinine could have been likely prerenal which seems to be improving.
C3 slightly low C4 is normal
Anti-dsDNA 219-titer pending and BEULAH IgG detected
CRP 27, sed rate 134
# Anemia hemoglobin 6.7 on admission
Status post one unit given with improvement in hemoglobin
GEOVANNY neg
Haptoglobin pending, LDH normal
Doubt hemolysis. Normal bilirubin also
# Nausea-poor p.o. intake. p.o. intake improved add Pepcid. Discussed with GI yesterday. They reviewed the chart and recommended only symptomatic treatment for nausea at this time. No paracentesis was recommended by GI as patient does not have
any symptoms or fever.
# Abnormal urine analysis but has a lot of squamous cell. Repeat urine analysis also noted. She has Citrobacter. Will start ciprofloxacin because of immunosuppression
# Hyponatremia-resolved.
# Pleural effusion/Ascites-history of paracentesis in the past. patient states that she does not feel her abdomen is bloated.
# Pericardial effusion-on colchicine. Cardiology evaluation appreciated. Echo stable therefore no further recommendations from cardiology
# Hypertension-on amlodipine
# Polyarthritis
# Vitamin D deficiency-replace
# Neuromyelitis optica per chart
# Avascular necrosis of both femoral heads
# DVT prophylaxis-subcutaneous heparin
# Full code
Discussed with nephrology,
Still awaiting transfer to [facility], but at this point she may not need transfer to [facility].
Discussed with nursing
Patient gave me permission to talk to her ángela�'s father. Spoke to Scot Mazariegos [phone]. Made aware that patient is extremely sick and chronically ill on a daily basis. Discussed about renal failure, nausea poor p.o. intake, pericardial
effusion, ascites, probably not well-controlled lupus. Also discussed about missed appointments and the need to see a hospital insurance clerk. They assured that they will take her to a hospital insurance clerk appointment.
09/25/2024 -patient stated that she has lived in this area for 8 to 9 months but has not seen a hospital insurance clerk in their office. When asked why she states that she had an appointment and she was sick at that time and could not reschedule for several
months.
Reviewed epic MyChart from her phone also Called [facility] .
She was supposed to see a Dr. Beena Lynn onn 08/10/24 and missed it. I see messages on her [employer] [facility], for non returned phone calls and also asking if she wants a tele appt.
pt says too far to go for appts.
Patient did not know the name of the hospital insurance clerk or Floor Scraper at [facility]. States that she sees .
On [facility] I see she has information technology coordinator listed Dr. Solomon Mosqueda, Bishop Perez, Dr.Darius Diaz- patient denies these are her cardiologists.
She states that she lives with her boyfriend and his parents. Parents have ill parents themselves who they have to visit in [place]. I made her aware that she may be able to qualify for rights through insurance company. She states that she knows
about that and needs to get a letter but have not gotten it yet.
She is aware that if she does not keep up with appointments and take care of her health her illness can get worse and she could even .
She may need a behavioral health case manager as or insurance verifier who can help her navigate the system as she finds it too hard.
Anticipated Discharge: Within 24 hours
Subjective/Interval History
-
Date of Service: September 28, 2024
Objective Data
-
Labs:
Laboratory Results
09/28/24
07:44
WBC 5.3
Hgb 8.8 L
Hct 26.9 L
Plt Count 275
Sodium 137
Potassium 4.1
Chloride 107
Carbon Dioxide 19 L
BUN 13
Creatinine 1.3 H
Glucose 58 L
Calcium 8.8
Vital Signs:
Vital Signs
Temp Pulse Resp BP Pulse Ox
98.0 F 90 16 122/84 100
09/28/24 15:07 09/28/24 15:07 09/28/24 15:07 09/28/24 15:07 09/28/24 15:07
I&O
09/27/24 09/28/2409/29/25
06:59 06:59 06:59
Intake Total 1919 / 1559
Balance 1919 / 1559
[2024-09-28] MEDS: LIDOCAINE 4% PATCH 2 PATCH TOPICAL (17:34)
--- NOTE | 2024-09-28 17:38 | W.PN.UPDATE ---
Addendum entered and electronically signed by Dallas Walter MD 09/28/24 18:18:
Dictation- [id number]
Original Note:
Update Note
Progress Note Update
[facility] has a bed for Ms. Ramos.
Initially she was hesitant, but I think it is in her best interest to be seen by a semiconductor processing technician as her appointment is not until November. With the serositis she might need adjustments to her meds.
I spoke to her boyfriend's parents who she stays with. They also would like her to go to [facility].
Will plan to go ahead with the transfer process.
[2024-09-28 19:31] VITALS: BP 134/93
[2024-09-29 06:45] LABS: ANA, HEp-2, IgG Detected (<1:80)
--- NOTE | 2024-09-29 16:02 | PN.CDI ---
CDI
- -
CDI:
Physician Documentation Request
Admit Date: 09/24/24 23:27
Dear Doctor Jose Angel,
09/28 notes and assessment state 'review of available records....reflecting a loss of 17 lbs (13.2% wt change, < 1 month)-significant.... Due to wt loss and estimated intakes of < 75% estimated energy requirement for greater than or equal to 1
month, pt meeting criteria for moderate protein/calorie malnutrition (ASPEN/AND guidelines, chronic illness).
Based on the above information and your assessment, which of the following most accurately represents the patient's nutritional status?
Moderate Malnutrition
Other (please specify)
[place] Criteria (ACP Hospitalist 2017)
2 or more criteria must be present for either
non severe or severe malnutrition
Note that the criteria differs related to the
presence of an acute or chronic illness
Acute Illness Chronic Illness
Energy Intake Non Severe: <75% for >7 days Non Severe: <75% for >1 month
Severe: <50% for >5 days Severe: <75% for >1 month
Weight Loss Non Severe: 1-2% over 1 week Non Severe: 5% over 1 month
5% over 1 month 7.5% over 3 months
7.5% over 3 months 10% over 6 months
1 year N/A 20% over 1 year
Severe: >2% over 1 week Severe: >5% over 1 month
>5% over 1 month >7.5% over 3 months
>7.5% over 3 months >10% over 6 months
1 year N/A >20% over 1 year
Body Fat Non Severe: Mild Decrease Non Severe: Mild Loss
Severe: Moderate Decrease Severe: Severe Loss
Muscle Mass Non Severe: Mild Decrease Non Severe: Mild Loss
Severe: Moderate Decrease Severe: Severe Loss
Fluid Accumulation Non Severe: Mild Accumulation Non Severe: Mild Accumulation
Severe: Moderate to severe Severe: Moderate to severe
accumulation accumulation
Reduced Lapper Strength Non Severe: N/A Non Severe: N/A
Severe: Measurably reduced Severe: Measurably reduced
Use of terms such as suspected, likely, concern for, or probable (associated with a specific diagnosis that is being evaluated, monitored, or treated as if it exists) are acceptable and can be coded in the inpatient setting, when documented at the
time of discharge.
Thank you,
Aliya Martínez RN, BSN
CDI Specialist
tiger text
Please use your independent medical judgment in providing your response.
--- NOTE | 2024-09-30 07:32 | W.PN.UPDATE ---
Update Note
Progress Note Update
Moderate protein calorie malnutrition
[2024-10-02 07:01] LABS: ANA Pattern Speckled
== END 2024-09-28 19:31 | disposition short-term general hospital (02) | DRG 683 ==
LOC: 4 WEST ACU 23:27
PROVIDERS: Nurse Practitioner; Nurse Practitioner Family; ADMITTING PHYSICIAN Hospitalist; ATTENDING PHYSICIAN Hospitalist; CONSULT PHYSICIAN Nuclear Medicine Nuclear Cardiology; EMERGENCY PHYSICIAN Emergency Medicine; FAMILY PHYSICIAN Student in an Organized Health Care Education/Training Program; OTHER PHYSICIAN Internal Medicine
PROC: 30233N1 Transfusion of Nonautologous Red Blood Cells into Peripheral Vein, Percutaneous Approach (ICD-10-PCS; 2024-09-25)
DX: N17.9 Acute kidney failure, unspecified (principal); E44.0 Moderate protein-calorie malnutrition; E87.1 Hypo-osmolality and hyponatremia; E87.20 Acidosis, unspecified; J91.8 Pleural effusion in other conditions classified elsewhere; R18.8 Other ascites; G36.0 Neuromyelitis optica [Devic]; I31.39 Other pericardial effusion (noninflammatory); N39.0 Urinary tract infection, site not specified; M87.852 Other osteonecrosis, left femur; M87.851 Other osteonecrosis, right femur; E16.2 Hypoglycemia, unspecified; M32.14 Glomerular disease in systemic lupus erythematosus; I10 Essential (primary) hypertension; D63.1 Anemia in chronic kidney disease; N18.30 Chronic kidney disease, stage 3 unspecified; M13.0 Polyarthritis, unspecified; M10.9 Gout, unspecified; B96.89 Other specified bacterial agents as the cause of diseases classified elsewhere; Z79.899 Other long term (current) drug therapy; Z79.624 Long term (current) use of inhibitors of nucleotide synthesis; Z68.20 Body mass index [BMI] 20.0-20.9, adult
CPT/HCPCS: 93308; 74176; 80048; 80053; 81003; 81015; 82306; 82570; 82607; 82728; 82962; 83010; 83540; 83550; 83615; 83690; 84156; 84703; 85014; 85018; 85025; 85027; 85520; 85598; 85610; 85613; 85652; 85670; 85730; 86038; 86039; 86140; 86160; 86225; 86256; 86850; 86880; 86900; 86901; 86920; 87040; 87077; 87086; 87186; 93005; 93321; 93325; 96361; 96374; 96375; 99285; P9016

== ENCOUNTER → 2024-11-14 13:14 | Outpatient (REF) | payer OTHER, SELFPAY | LOC: RCS 13:14 | PROVIDERS: ATTENDING PHYSICIAN Internal Medicine Interventional Cardiology; FAMILY PHYSICIAN Student in an Organized Health Care Education/Training Program | DX: I31.39 Other pericardial effusion (noninflammatory) (principal) | CPT/HCPCS: 93308 ==

== ENCOUNTER → 2025-07-27 10:16 | Outpatient (REF) | payer OTHER, SELFPAY | LOC: RCS 10:16 | PROVIDERS: ATTENDING PHYSICIAN Internal Medicine Interventional Cardiology; FAMILY PHYSICIAN Student in an Organized Health Care Education/Training Program | DX: M32.12 Pericarditis in systemic lupus erythematosus (principal); M32.14 Glomerular disease in systemic lupus erythematosus; I10 Essential (primary) hypertension; I31.39 Other pericardial effusion (noninflammatory) | CPT/HCPCS: 93306 ==